=== PATIENT | female | born 1945 | race Caucasian/White ===

== ENCOUNTER 2023-06-28 08:04 | Emergency (ER) | payer MEDICARE, MEDICAID, SELFPAY ==
--- NOTE | 2023-06-28 08:10 | ED.SKABFB ---
HPI - Skin/Abscess/Foreign Bdy General Chief complaint: Skin/Abscess/Foreign Body Stated complaint: Rash Time Seen by Provider: 06/28/23 08:25 Source: patient and RN notes reviewed Mode of arrival: ambulatory Limitations: no limitations History of Present Illness HPI narrative: 77-year-old female presents concern for rash. She reports she has had a rash on her arms, legs, breasts for 2 weeks. She reports she has used hydrocortisone cream without relief. She denies any new detergents, lotions, soaps, personal care products. She denies any history of reaction to something in the past. She reports it seems like something is biting her. She does not have rash anywhere else other than her forearms, lower legs, breast. She denies swollen lips, swollen tongue, trouble breathing. MD complaint: rash Related Data Home Medications Medication Instructions Recorded Confirmed alprazolam 0.5 mg tablet 0.5 mg PO DAILY 06/28/23 06/28/23 amlodipine 5 mg tablet 5 mg PO DAILY 06/28/23 06/28/23 atorvastatin 40 mg tablet 40 mg PO DAILY 06/28/23 06/28/23 cholecalciferol (vitamin D3) 50 50 mcg PO DAILY 06/28/23 06/28/23 mcg (2,000 unit) tablet (Vitamin D3) triamterene 37.5 1 tablet PO DAILY 06/28/23 06/28/23 mg-hydrochlorothiazide 25 mg tablet Allergies Allergy/AdvReac Type Severity Reaction Status Date / Time acetaminophen Allergy Mild Itching Verified 06/28/23 08:15 hydrocodone Allergy Mild Itching Verified 06/28/23 08:15 Review of Systems Review of Systems: CONSTITUTIONAL: Denies malaise, chills, sweats, or fever. EYES: Denies redness, or discharge. ENT: Denies rhinorrhea, congestion, swollen lips, swollen tongue CARDIOVASCULAR: Denies chest pain, palpitations, or edema. RESPIRATORY: Denies cough or dyspnea. GASTROINTESTINAL: Denies abdominal pain, nausea, vomiting SKIN: Reports rash on her forearms, lower legs, breasts MUSCULOSKELETAL: Denies joint pain or myalgia. NEUROLOGIC: Denies headache. All systems reviewed & are unremarkable except as noted in HPI and below PMFSH Comments At time of signature, agree with nursing past medical, surgical, social and family history. There is no relevant family history pertinent to the presenting complaint Exam Narrative: GENERAL: Well-appearing, well-nourished, and in no acute distress. HEAD: Normocephalic, atraumatic. EYES: PERRLA, conjunctivae clear, and EOMI. ENT: Mucous membranes moist. Oropharynx without edema, erythema or lesions. NECK: Supple. No lymphadenopathy CHEST: Clear to auscultation. No respiratory distress. HEART: Regular rate and rhythm. SKIN: Warm, dry. Discrete erythematous papules with scabs noted to the lower legs, her arms, breasts, no tracking noted. NEURO: Alert and oriented x3. PSYCH: Normal mood and affect Course Course Emergency Course: While this does not appear Holy consistent with scabies, I will treat the patient just in case, likely I think it is a contact dermatitis of some sort Patient is aware of diagnosis, understands and agrees to treatment plan. Anticipatory guidance given. Patient agrees to follow-up as directed and is aware of reasons to seek care at the emergency department. Portions of this record may have been created with voice recognition software Level of Care: Express Care Visit Vital Signs Vital signs: Reviewed. MDM - Skin/Abscess/Foreign Bdy MDM Narrative Medical decision making narrative: Does not appear at this time to be erythema multiforme, bullous, SJS, TEN; no evidence at this time to suggest RMSF, endocarditis or Lyme disease; patient looks well, nontoxic and is tolerating oral intake; no neurologic signs or symptoms; no headache, photophobia or neck pain; afebrile; appropriate for initial outpatient treatment; discussed the importance of follow-up, patient agrees; question, viral exanthema, contact dermatitis, allergic dermatitis, eczema, urticaria, scabies. No soft palate or uvula edema, no tongue, lip javad
[2023-06-28 08:14] VITALS: BP 144/69; PULSE 84; RESP 18; TEMP 36.8; O2SAT 100
== END 2023-06-28 08:43 | disposition home or self-care (01) ==
PROVIDERS: Emergency Provider Nurse Practitioner; PCP Nurse Practitioner Family
DX: R21 Rash and other nonspecific skin eruption (principal); Z79.899 Other long term (current) drug therapy
CPT/HCPCS: 99213; G0463

== ENCOUNTER 2025-08-27 11:43 | Outpatient (CLI) | payer MEDICARE, MEDICAID, SELFPAY ==
--- OUTSIDE RECORDS SUMMARY | 2013-06-22 03:15 | XMS_ITS | Continuity of Care Document ---
Author Organization [facility] Address [address] [place] [address] Phone Care Team Providers Care Manager Transplant Name Role Phone Ventura Ashton MD, MD Unavailable Unavailab le Allergies, Adverse Reactions, Alerts Substance Reaction Status Criticality No Known allergies Medications Medication Instructions Dosage Effective Dates (start - stop) Status Comments Vitamin D3 1,000 unit tablet - Active Prolia 60 mg/mL Sub-Q Syringe - Active Procedures Procedure Date Office/outpatient Visit, [facility] No Charge Refraction Advance Directives Directive [...] Providers Copied on Encounter Office/outpa tient Visit, [facility], [address], [place], [place], [id number], [place] tel:[phone] SEC Michael BARNHART Professional PSYCHOPHYSIC VISUAL DISTSENILE NUCLEAR CATARACT Sep-0 3 Poli Whitehead. [address], [place], [address], [place]. tel:[phone] Referring Provider: Judi Caballero, [facility] [address] [facility] [address], [place], [address]. tel:[phone] [facility], [address], [place], [place], [id number], [place] tel:[phone] SEC Michael [place] Professional No Information 3 Rodolforodritavo Starr. [address], [place], [place], [address], [place]. tel:[phone] Family History Family Member Type Diagnosis Age At Onset Father Problem (finding) diabetes melli tus in first degree relative Mother Problem (finding) Cornea Disorders Payers Payer name Insurance type Covered green party ID Authoriza tion(s) Medicare [facility] [id number] Medicaid [facility] [id number] Social History Type Description Quantity Date Captured [...]
--- OUTSIDE RECORDS SUMMARY | 2025-08-27 12:16 | XMS_ITS | Encounter Summary ---
Author Organization [facility] Address [address] [place] [address] Care Team Providers Care Binder Cutter Hand Name Role Phone Willy Hollis MD Primary Care Provider [phone] Willy Hollis MD Primary Care Provider [phone] Dhara Velasco MD Primary Care Provide r Willy Hollis MD Primary Care Provider [phone] Reg Hook MD Primary Care Provider [phone] Laurita Grewal NP Primary Care Provider [phone] Tono Sigala MD Primary Care Provider Mendez Clark MD Primary Care Provi margot Encounter Details Date Type Department Care Team (Late st Contact Info) Description 12/23/2016 Orders Only [facility] Internal Medicine Provider, MD Bob [address] [place] [address] Social History Tobacco Use Types Packs/Day Years Used Date Smoking Tobacco: Never Alcohol Use Standard Drinks/Week Comments No 0 (1 standard drink = 0.6 oz pur e alcohol) Comments Unknown Sex and Gender Information Value Date Recorded Sex Assigned at Not on file Legal Sex Female 11:55 PM GPS FIELD DATA COLLECTOR Gender Identity Not on file Sexual Orientation Not on file documented as of this encounter Functional Status documented as of this encounter Plan of Treatment Not on file documented as of this encounter Procedures Procedure Name Priority Date/Time Associated Diagnosis Comments CARDIOLOGY REPORT 12/23/2016 documented in this encounter Results * CARDIOLOGY REPORT (12/23/2016) Anatomical Region Laterality Modality Other Narrative 12/23/2016 Ordered by an unspecified provider. us Historical Provider [facility] DANIELLA RAYGOZA Final Result documented in this encounter Visit Diagnoses Not on filedocumented in this encounter Additional Health Concerns Infection Onset Date Last Indicated Resolved Time COVID: Suspected 09/27/2021 09/27/2021 09/27/2021 10:14 AM GPS FIELD DATA COLLECTOR COVID19 09/27/2021 09/27/2021 10/11/2021 3:05 AM GPS FIELD DATA COLLECTOR COVID: Recovered Comment:Added based on recent COVID infection. 10/11/2021 11/26/2021 02/08/2022 3:05 AM C DT COVID: Suspected 04/17/2022 04/17/2022 04/17/2022 9:12 AM CDT COVID: Suspected 04/17/2022 04/17/2022 04/17/2022 6:19 PM CDT COVID: Suspected 05/26/2024 05/26/2024 05/26/2024 5:41 PM CDT COVID19 05/26/2024 05/26/2024 06/05/2024 3:07 AM CDT COVID: Recovered Comment:Added based on recent COVID infection. 06/05/2024 06/15/2024 09/03/2024 3:[address] documented as of this encounter Care Teams Binder Cutter Hand Relationship Specialty Start Date End Date Willy Hollis MD PCP - General 01/14/17 01/26/22 Willy Hollis MD PCP - General 12/11/16 01/13/17 Dhara Velasco MD [address] [place] [address] [address] [place] [address] PCP - General 01/27/22 02/07/22 Willy Hollis MD [address] [facility] [address] [address] [address] [place] [address] PCP - General 02/08/22 03/07/22 Reg Hook MD [address] [place] [address] PCP - General Family Medicine 03/08/22 08/07/23 Laurita Grewal, DOCTOR OF [facility] [address] [place] [address] PCP - General Family Medicine 08/08/23 10/31/23 Tono Sigala MD [address] [place] [address] PCP - General Family Medicine 11/01/23 09/24/24 Mendez Clark MD [address] [facility] [address] [place] [address] PCP - General Family Practice 09/25/24 documented as of this encounter
--- OUTSIDE RECORDS SUMMARY | 2025-08-27 12:16 | XMS_ITS | Encounter Summary ---
Author Organization [facility] Address [address] [place] [address] Care Team Providers Care Fence Repairman Name Role Phone Laurita Grewal NP Primary Care Provider [phone] Tono Sigala MD Primary Care Provider Mendez Clark MD Primary Care Provi margot Encounter Details Date Type Department Care Team (Late st Contact Info) Description 10/20/2023 Telephone [facility] [address] [place] [address] Sherry Simms, LAWANDA Social History Tobacco Use Types Packs/Day Years Used Date Smoking Tobacco: Never Smokeless Tobacco: Never Alcohol Use Standard Drinks/Week Comments No 0 (1 standard drink = 0.6 oz pur e alcohol) AUDIT-C Answer Date Recorded Q1: How often do you have a drink containing alcohol? Never 08/09/2023 Q2: How many drinks containi ng alcohol do you have on a typical day when you are drinking? Patient does not drink Q3: How often do you have si x or more drinks on one occasion? Never 08/09/2023 PHQ-2 Answer Date Recorded PHQ-2 Total Score (If total score is 3 or more points, staff should administer the PHQ-9) 0 09/13/2023 Personal Safety Answer Date Recorded Getting School Help Needed Not on file 10/03 Comments No Sex and Gender Information Value Date Recorded Sex Assigned at Not on file Legal Sex Female 11:55 PM SWEETBREAD TRIMMER Gender Identity Not on file Sexual Orientation Not on file documented as of this encounter Plan of Treatment Not on file documented as of this encounter Visit Diagnoses Not on filedocumented in this encounter Additional Health Concerns Infection Onset Date Last Indicated Resolved Time COVID: Suspected 05/26/2024 05/26/2024 05/26/2024 5:41 PM CDT COVID19 05/26/2024 05/26/2024 06/05/2024 3:07 AM CDT COVID: Recovered Comment:Added based on recent COVID infection. 06/05/2024 06/15/2024 09/03/2024 3:[address] documented as of this encounter Care Teams Fence Repairman Relationship Specialty Start Date End Date Laurita Grewal NP PCP - General Family Medicine 08/08/23 10/31/23 Tono Sigala MD PCP - General Family Medicine 11/01/23 09/24/24 Mendez Clark MD [address] [address] PCP - General Family Practice 09/25/24 documented as of this encounter
--- OUTSIDE RECORDS SUMMARY | 2025-08-27 12:16 | XMS_ITS | Clinical Summary ---
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 Name Role Phone Kinsey Oliver MD Primary Care Provi margot Allergies Active Allergy Reactions Criticality Noted Date Comments Hydrocodone Itching,Nausea only Reaction: itch, nausea, , Reaction: itch, nausea, Medications calcium citrate-vitamin D3 (CITRACAL+D) 315-200 mg-unit per tablet Take 1 tablet by mouth 2 (two) times a day Active triamterene-hydro CHLOROthiazide 37.5-25 mg per tablet TAKE 1 TABLET BY MOUTH EVERY DAY 90 tablet 3 04/30/2024 Active cholecalciferol (Vitamin D3) 2000 unit tabletIndications :Age-related osteoporosis without current pathological fracture Take 1 tablet (2,000 Units total) by mouth daily 90 tablet 3 05/24/2024 Active atorvastatin (LIPITOR) 40 mg tablet TAKE 1 TABLET BY MOUTH EVERY DAY 90 tablet 3 03/15/2025 Active traMADoL (ULTRAM) 50 mg tablet Take 1 tablet (50 mg total) by mouth every 6 (six) hours as needed for pain 03/15/2025 Active citalopram (CeleXA) 20 mg tabletIndications :SARITHA (generalized anxiety disorder) TAKE 1 TABLET BY MOUTH EVERY DAY 100 tablet 1 05/05/2025 Active amLODIPine (NORVASC) 5 mg tabletIndications :Essential hypertension TAKE 1 TABLET (5 MG TOTAL) BY MOUTH DAILY. 90 tablet 3 05/15/2025 Active Active Problems Problem Noted Date Diagnosed Date Medicare annual wellness visit, subsequent 05/01 Closed head injury 03/28/2025 Cervical strain, acute, initial encounter 2024 Left shoulder strain, initial encounter 03/28/20 Sacral contusion, initial encounter 03/28/2025 Closed avulsion fracture of lateral malleolus of left fibula 03/28/2025 Accidental fall 03/28/2025 Hyperkalemia 11/01/2024 Bladder prolapse, female, acquired 09/25/2024 Rotator cuff arthropathy of right shoulder 09/25 Anemia in stage 3a chronic kidney disease 2023 Assessment & Plan (05/24/2024 10:43 AM CDT): - Chronic, mild, stable - has known CKD stag 3a - we will continue to monitor lab - relevant labs as shown below Lab Results Component Value Date WBC 7.0 05/11/2024 HGB 11.8 (L) 05/11/2024 HCT 35.2 (L) 05/11/2024 MCV 90.7 05/11/2024 LABPLAT 286 05/11/2024 Lab Results Component Value Date VITB12 479 05/11/2024 Lab Results Component Value Date FOLATE 7.2 05/11/2024 Lab Results Component Value Date IRON 79 05/11/2024 TIBC 266 05/11/2024 FERRITIN 293 (H) 05/11/2024 Assessment & Plan (02/03/2024 3:21 AM CDT): - Chronic, mild, stable - has known CKD stag 3a - repeat labs prior to next visit, additional labs iron studies, b12, Folate levels also ordered Lab Results Component Value Date WBC 7.1 01/24/2024 HGB 11.5 (L) 01/24/2024 HCT 34.2 (L) 01/24/2024 MCV 90.2 01/24/2024 LABPLAT 314 01/24/2024 SARITHA (generalized anxiety disorder) 11/01/2023 Assessment & Plan (05/24/2024 11:00 AM CDT): - Chronic condition, better controlled - persistent symptoms of anxiety that is not controlled - used to use Alprazolam 0.5 mg nightly for sleep for many years - no longer after being taken off - has 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 and 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 sleep disorder - , no children currently, and works - currently on Citalopram 10 mg daily - continue current medication Assessment & Plan (02/03/2024 3:20 AM CDT): - Chronic condition, persistent - persistent symptoms of anxiety that is not controlled - has been using Alprazolam 0.5 mg nightly for sleep for many years - has 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 and has sleep disorder - , no children currently, and works - currently on Citalopram 10 mg daily that was started on last visit - continue current medication Assessment & Plan (11/01/2023 9:36 AM PRECISION LENS TECHNICIAN): - new diagnosis - persistent symptoms of anxiety that is not controlled - has been using Alprazolam 0.5 mg nightly for sleep for many years - has 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 - , no children currently, and works - start Citalopram 10 mg daily, script sent in Abnormal mammogram of left breast 11/01/2023 Assessment & Plan (02/03/2024 3:23 AM CDT): - reviewed recent Abnormal mammogram and US of left breast - had biopsy with result as shown below - to note, she has had biopsy of right breast in 2016 - at [facility] - with benign findings - due for repeat Left breast diagnostic mammogram and ultrasound in 6 months from 10/2023, order already placed in the past, reminder provided 11/09 - IMPRESSION: Ultrasound-guided biopsy of a left breast 3 mm mass as described above. Pathology is pending. An addendum to this report will be issued when the pathology results are available. Pathology returns as small foci of epithelial hyperplasia favoring usual ductal hyperplasia (UDH) and focal cystic dilatation, no evidence of malignancy. Pathology is concordant with the imaging findings. Left breast diagnostic mammogram and ultrasound in [address] Sigala was notified of the biopsy results by Sherry Simms RN on 11/15/2023. Pathology Pending 11/09 Diagnosis: Breast, left, mass, 9 o'clock 1-2 cmfn, ultrasound-guided core biopsy: - Small foci of epithelial hyperplasia favoring usual ductal hyperplasia (UDH) and focal cystic dilation. - No evidence of malignancy. - See microscopic description. EXAMINATION: DIAGNOSTIC MAMMOGRAM LEFT W KAIA, US BREAST LEFT LIMITED 10/14/2023 IMPRESSION: 1. The 3 mm mass at the 9 o'clock position of the left breast is suspicious for malignancy (low suspicion). Differential considerations include an intramammary lymph node. Ultrasound-guided biopsy of this mass is recommended. 2. No evidence of left axillary adenopathy on ultrasound. BI-RADS: 4A - Suspicious for malignancy (low suspicion). Assessment & Plan (11/01/2023 9:40 AM PRECISION LENS TECHNICIAN): - reviewed recent Abnormal mammogram and US of left breast - it was recommended to get biopsy which she is hesitant about, has fear of needles - discussed I can provider her a sedative medication for her feat to calm her down, still hesitant - order placed, I have asked her to discuss this with her close family as well before deciding not to pursue the biopsy - to note, she has had biopsy of right breast in 2016 - at [facility] - with benign findings EXAMINATION: DIAGNOSTIC MAMMOGRAM LEFT W KAIA, US BREAST LEFT LIMITED 10/14/2023 IMPRESSION: 1. The 3 mm mass at the 9 o'clock position of the left breast is suspicious for malignancy (low suspicion). Differential considerations include an intramammary lymph node. Ultrasound-guided biopsy of this mass is recommended. 2. No evidence of left axillary adenopathy on ultrasound. BI-RADS: 4A - Suspicious for malignancy (low suspicion). Stage 3a chronic kidney disease 08/09/2023 Assessment & Plan (05/24/2024 10:41 AM CDT): - chronic condition, stable - educated patient on 10/2023 which is when she first learned about this condition - monitor electrolytes - avoid NSAIDs, make sure hypertension is well cotnrolled - renally dose medications - will continue to monitor renal function Lab Results Component Value Date CREATININE 1.31 (H) 05/11/2024 BUNSER 12 05/11/2024 SODIUM 142 05/11/2024 POTASSIUM 4.1 05/11/2024 CO2 26 05/11/2024 Assessment & Plan (02/03/2024 3:19 AM CDT): - chronic condition, stable - educated patient on 10/2023 which is when she first learned about this condition - monitor electrolytes - avoid NSAIDs, make sure hypertension is well cotnrolled - renally dose medications - will continue to monitor renal function Lab Results Component Value Date CREATININE 1.32 (H) 01/24/2024 BUNSER 12 01/24/2024 SODIUM 137 01/24/2024 POTASSIUM 4.0 01/24/2024 CO2 28 01/24/2024 Assessment & Plan (11/01/2023 9:35 AM PRECISION LENS TECHNICIAN): - chronic condition - patient states this is the first time she is learning about it, discussed it to her - monitor electrolytes - avoid NSAIDs, make sure hypertension is well cotnrolled - renally dose medications - recheck labs, orders placed Lab Results Component Value Date CREATININE 1.24 (H) 08/09/2023 BUNSER 13 08/09/2023 SODIUM 138 08/09/2023 POTASSIUM 3.9 08/09/2023 CO2 24 08/09/2023 Assessment & Plan (08/12/2023 1:54 PM CDT): Lab Results Component Value Date GFRNAA 45 08/09/2023 Lab Results Component Value Date CREATININE 1.24 (H) 08/09/2023 Lab Results Component Value Date BUNSER 13 08/09/2023 Continue to follow a Renal diet that is low in sodium, potassium, and phosphorus. Avoid/limit foods such as fast food items, fried/breaded foods, canned goods, deli meats, gravies/sauces, bananas, tomatoes, oranges, milk, dark alex and chocolate. [place] juice, citrus juices, and tomato juice are also high in potassium. Do not use salt substitutes, as they may contain potassium. Additional resources available online from the [employer] at www.kidney.org/nutrition Labs are stable. Continue tight blood pressure control. Encouraged adequate fluid intake. Avoid nsaids. Will continue to monitor. Personal history of colonic polyps 07/27/2023 Assessment & Plan (02/03/2024 3:19 AM CDT): - last colonoscopy as shown below, up to date as shown below Colonoscopy 11/2023 Patient Profile: This is a 78 year old female. History of colon polyps. No family history of colon cancer Procedure: Colonoscopy Indications: High risk colon cancer surveillance: Personal history of colonic polyps, Last colonoscopy: October 2018 Referring MD: Tono Sigala M.D. Providers: Melissa Sierra M.D. Impression: - The entire examined colon is normal overall. - Diverticulosis in the sigmoid colon. - Internal hemorrhoids. - No specimens collected. Recommendation: - Repeat routine colonoscopy is not recommended for screening purposes. - Continue present medications. 10/2018 - Colonoscopy Impression: - One 3 mm polyp in the ascending colon, removed with a jumbo cold forceps. Resected and retrieved. - Diverticulosis in the sigmoid colon. - One 5 mm polyp in the rectum, removed with a jumbo cold forceps. Resected and retrieved. - Internal hemorrhoids. Recommendation: - Await pathology results. - Repeat colonoscopy in 5-10 years for surveillance. Assessment & Plan (11/01/2023 8:58 AM PRECISION LENS TECHNICIAN): - last colonoscopy as shown below - has repeat colonoscopy scheduled for next month 10/2018 - Colonoscopy Impression: - One 3 mm polyp in the ascending colon, removed with a jumbo cold forceps. Resected and retrieved. - Diverticulosis in the sigmoid colon. - One 5 mm polyp in the rectum, removed with a jumbo cold forceps. Resected and retrieved. - Internal hemorrhoids. Recommendation: - Await pathology results. - Repeat colonoscopy in 5-10 years for surveillance. Palpitations 12/28/2021 Assessment & Plan (05/24/2024 10:44 AM CDT): valauted by cardiology in past for palpitations, 24 hr holter monitor and Stress test, Saw Dr. Jimenez for complaints of Palpiations, sob, chest heaviness Echo 01/2022 Conclusions: Normal global left ventricular systolic function. Ejection fraction is visually estimated at 55 to 60 %. Thin and hypermobile atrial septum. Normal structure of the mitral valve. Trivial regurgitation of the mitral valve. Normal structure of the aortic valve. Normal structure of the tricuspid valve. Trivial regurgitation in the tricuspid valve. Assessment & Plan (03/10/2022 1:13 PM CDT): Normal echo. Reports excessive caffeine intake. Stressed need to replace at least part of her caffeinated drinks w/water or non-caffeine soda. Assessment & Plan (01/28/2022 8:44 AM CDT): Continue following with cardiology Follow up on holter monitor Echo looks good with EF of 55-60% Assessment & Plan (12/28/2021 3:58 PM CDT): TSH with reflex to T4 ordered 24 hour Holter monitor ordered Follow-up in 1 month Chronic fatigue 12/28/2021 Assessment & Plan (12/28/2021 4:00 PM CDT): Anemia contributory factor Evaluated by collator operator. Iron levels, b12, and folate normal In the process of getting EGD and colonoscopy TSH ordered given associated palpitations Age-related osteoporosis wit hout current pathological fracture 09/27/2017 Assessment & Plan (05/24/2024 11:00 AM CDT): - chronic, condition, not at goal control - most DEXA as shown below - currently on Vitamin D and calcium - was on Prolia for several years and now on Evenity - has had 2 thus far DEXA 10/2022 FINDINGS: AP LUMBAR SPINE L1-L4: T-score is -3.6 LEFT HIP: T-score is -1.7 Femoral neck: T-score is -2.9 Lab Results Component Value Date TSH 2.83 01/24/2024 Lab Results Component Value Date CALCIUM 9.3 05/11/2024 PHOS 3.6 05/11/2024 Assessment & Plan (11/01/2023 9:34 AM PRECISION LENS TECHNICIAN): - chronic, condition, not at goal control - most DEXA as shown below - currently on Vitamin D and calcium - was on Prolia for several years and now on Evenity - recently started and has just had one injection and has another one today DEXA 10/2022 FINDINGS: AP LUMBAR SPINE L1-L4: T-score is -3.6 LEFT HIP: T-score is -1.7 Femoral neck: T-score is -2.9 Lab Results Component Value Date TSH 2.89 08/09/2023 Lab Results Component Value Date CALCIUM 10.1 08/09/2023 Assessment & Plan (08/12/2023 1:53 PM CDT): Last Dexa scan reviewed and was worse than previous dexa despite prolia injections. Discussed starting evenity and patient was agreeable. This was ordered for patient and we will start the process for obtaining it for her. Assessment & Plan (03/10/2022 1:17 PM CDT): Will continue prolia injections. Aware that we do not keep prolia in office. We will send script to her pharmacy & she will need to bring with her in July (6 mos from last injection). 07/14/20 dexa: showing osteoporosis in both left femoral neck (-3) and Lumbar spine (-3.3). Mixed hyperlipidemia 03/28/2017 Assessment & Plan (05/24/2024 10:44 AM CDT): - chronic condition - status: is adequately controlled. - current management/medications: Atorvastatin 40 mg daily - other comorbid conditions: hypertension - patient is compliant with medications. - most recent LDL as shown below - maintain a healthy weight, diet - will monitor closely Lab Results Component Value Date LDLCALC 83 01/24/2024 Lab Results Component Value Date ALT 17 08/09/2023 AST 22 08/09/2023 ALKPHOS 125 08/09/2023 BILITOT 0.6 08/09/2023 Assessment & Plan (02/02/2024 8:15 AM CDT): - chronic condition - status: is adequately controlled. - current management/medications: Atorvastatin 40 mg daily - other comorbid conditions: hypertension - patient is compliant with medications. - most recent LDL as shown below - maintain a healthy weight, diet - will monitor closely Lab Results Component Value Date LDLCALC 83 01/24/2024 Lab Results Component Value Date ALT 17 08/09/2023 AST 22 08/09/2023 ALKPHOS 125 08/09/2023 BILITOT 0.6 08/09/2023 Assessment & Plan (11/01/2023 8:51 AM PRECISION LENS TECHNICIAN): - chronic condition - status: is adequately controlled. - current management/medications: Atorvastatin 40 mg daily - other comorbid conditions: hypertension - patient is compliant with medications. - most recent LDL as shown below - maintain a healthy weight, diet - will monitor closely Lab Results Component Value Date LDLCALC 94 08/09/2023 Lab Results Component Value Date ALT 17 08/09/2023 AST 22 08/09/2023 ALKPHOS 125 08/09/2023 BILITOT 0.6 08/09/2023 Assessment & Plan (08/12/2023 1:54 PM CDT): Lipid abnormalities are stable, reviewed previous lipid levels in [facility]. Pharmacotherapy as ordered. Order for lipid panel was given today to be obtained. Pt voiced understanding of lab drawn and continuation of current medication regimen. Assessment & Plan (03/09/2022 2:42 PM CDT): Atorvastatin 40mg daily. Denies myalgias. We will check labs and make adjustments to medications as needed. Patient should focus on limiting bad fats in the diet and using exercise as a way to improve the lipid status. Secondary prevention. Reviewed medications. Lipid panel ordered; will call w/results when rec'd. Denies any statin Ses. Reviewed diet/exercise recommendations. Reviewed red flags. The 10-year ASCVD risk score (Meridian NORMA Jr., et al., 2013) is: 22.4% Values used to calculate the score: Age: 76 years Sex: Female Is Non- : No Diabetic: No Tobacco smoker: No Systolic Blood Pressure: 134 mmHg Is BP treated: Yes HDL Cholesterol: 46 mg/dL Total Cholesterol: 165 mg/dL Essential hypertension 03/28/2017 Assessment & Plan (05/24/2024 10:41 AM CDT): Blood Pressure Management BP Readings from Last 3 Encounters: 05/24/24 108/74 05/22/24 139/65 04/24/24 139/64 Chronic condition Status - is adequately controlled. Current medications are: Amlodipine 5 mg daily, Trimterene-HCTZ 37.5-25 mg daily Patient is compliant with medications. Patient denies any side effects or adverse side effects from the medication/s. Follow a low salt diet Monitor blood pressure regularly at home The 10-year ASCVD risk score (Madonna LOUIE, et al., 2019) is: 18.7% Values used to calculate the score: Age: 78 years Sex: Female Is Non- : No Diabetic: No Tobacco smoker: No Systolic Blood Pressure: 108 mmHg Is BP treated: Yes HDL Cholesterol: 47 mg/dL Total Cholesterol: 154 mg/dL Lab Results Component Value Date LDLCALC 83 01/24/2024 Lab Results Component Value Date GLUCOSE 100 05/11/2024 CALCIUM 9.3 05/11/2024 SODIUM 142 05/11/2024 POTASSIUM 4.1 05/11/2024 CO2 26 05/11/2024 CHLORIDE 104 05/11/2024 BUNSER 12 05/11/2024 CREATININE 1.31 (H) 05/11/2024 Assessment & Plan (02/02/2024 8:15 AM CDT): Blood Pressure Management BP Readings from Last 3 Encounters: 02/02/24 116/70 01/31/24 123/55 01/03/24 125/64 Chronic condition Status - is adequately controlled. Current medications are: Amlodipine 5 mg daily, Trimterene-HCTZ 37.5-25 mg daily Patient is compliant with medications. Patient denies any side effects or adverse side effects from the medication/s. Follow a low salt diet Monitor blood pressure regularly at home The 10-year ASCVD risk score (Madonna LOUIE, et al., 2019) is: 21.2% Values used to calculate the score: Age: 78 years Sex: Female Is Non- : No Diabetic: No Tobacco smoker: No Systolic Blood Pressure: 116 mmHg Is BP treated: Yes HDL Cholesterol: 47 mg/dL Total Cholesterol: 154 mg/dL Lab Results Component Value Date LDLCALC 83 01/24/2024 Lab Results Component Value Date GLUCOSE 102 01/24/2024 CALCIUM 9.7 01/24/2024 SODIUM 137 01/24/2024 POTASSIUM 4.0 01/24/2024 CO2 28 01/24/2024 CHLORIDE 99 01/24/2024 BUNSER 12 01/24/2024 CREATININE 1.32 (H) 01/24/2024 Assessment & Plan (11/01/2023 8:50 AM PRECISION LENS TECHNICIAN): Blood Pressure Management BP Readings from Last 3 Encounters: 11/01/23 130/70 10/04/23 127/73 09/13/23 134/64 Chronic condition Status - is adequately controlled. Current medications are: Amlodipine 5 mg daily, Trimterene-HCTZ 37.5-25 mg daily Patient is compliant with medications. Patient denies any side effects or adverse side effects from the medication/s. Follow a low salt diet Monitor blood pressure regularly at home The 10-year ASCVD risk score (Madonna LOUIE, et al., 2019) is: 26.2% Values used to calculate the score: Age: 78 years Sex: Female Is Non- : No Diabetic: No Tobacco smoker: No Systolic Blood Pressure: 130 mmHg Is BP treated: Yes HDL Cholesterol: 53 mg/dL Total Cholesterol: 176 mg/dL Lab Results Component Value Date LDLCALC 94 08/09/2023 Lab Results Component Value Date GLUCOSE 96 08/09/2023 CALCIUM 10.1 08/09/2023 SODIUM 138 08/09/2023 POTASSIUM 3.9 08/09/2023 CO2 24 08/09/2023 CHLORIDE 102 08/09/2023 BUNSER 13 08/09/2023 CREATININE 1.24 (H) 08/09/2023 Assessment & Plan (09/13/2023 7:11 AM PRECISION LENS TECHNICIAN): Recommend DASH diet, heart healthy lifestyle, exercise. Discussed the risks of hypertension. Assessment & Plan (08/12/2023 1:53 PM CDT): Stable/ Improved. Blood pressure is adequately controlled on current medication. We will not make any medication changes today. Will have her follow-up in 6 months for continued monitoring and management Assessment & Plan (03/09/2022 2:42 PM CDT): Amlodipine 5mg daily, triamterene/HCTZ 37.5/25mg daily The blood pressure is under good control. Ideally it should be under 130/80. Continue medications without adjustment. Continue efforts to eat well (4-5 fruits and veggies) daily and exercise for about 30 min nearly every day. Watch salt intake, keeping to less than 2000mg per day. Limit alcohol. Include strategies to cope with stress. Labs ordered today; will contact w/results once received. Primary insomnia 03/28/2017 Assessment & Plan (05/24/2024 11:01 AM CDT): - chronic condition, stable - son was hit by drunk lokie driver 1988, and was disabled and used to get up and turn him for 19 years - since her son she is still used to it so struggles to sleep - no longer on Alprazolam 0.5 mg nightly PRN - in past has been on Trazodone, Nortriptyline - currently on Citalopram 10 mg daily, and avoiding Caffeine containing Soda at night which is working for her - continue current management Assessment & Plan (02/03/2024 3:19 AM CDT): - chronic condition, stable - son was hit by drunk lokie driver 1988, and was disabled and used to get up and turn him for 19 years - since her son she is still used to it so struggles to sleep - currently on Alprazolam 0.5 mg nightly PRN - in past has been on Trazodone, Nortriptyline -discussed with her about role of anxiety which is not well controlled, see plan for anxiety - I want her to be off alprazolam, sent in trial of Belsomra 10 mg to take nightly 30 min before sleeps - continue current management with changes made Assessment & Plan (11/01/2023 9:35 AM PRECISION LENS TECHNICIAN): - chronic condition, stable - son was hit by drunk lokie driver 1988, and was disabled and used to get up and turn him for 19 years - since her son she is still used to it so struggles to sleep - currently on Alprazolam 0.5 mg nightly PRN - in past has been on Trazodone, Nortriptyline -discussed with her about role of anxiety which is not well controlled, see plan for anxiety - continue current management Assessment & Plan (08/12/2023 1:59 PM CDT): Has used xanax .5mg at bedtime for years. We discussed risks/benefits of medications and risk of dependence. She use to have to take care of her son at night, who was disabled. I talked to her about trying to wean off of it. Patient was agreeable to at least try it. Will decrease to .25mg tablet and take every other night for 2 weeks. Will start nortriptyline at bedtime nightly. F/u 1 month for recheck on medication change. Assessment & Plan (03/09/2022 2:42 PM CDT): Xanax refilled 02/10/22 #90, takes qhs prn. Gastroesophageal reflux disease 09/26/2013 Assessment & Plan (11/01/2023 8:52 AM PRECISION LENS TECHNICIAN): - chronic, stable - used to be on PPI but not any more - intermittent heartburn dn takes something OTC - Continue on current meds, encouraged healthy diet and exercise - Discussed increased risk of cdif and vit B12 deficiency with ad terminal makeup operator use of PPI. Recommend the following changes: - Avoid trigger foods (such as spicy foods, fried foods, onions, peppermints, chocolate, high acid foods and juices, caffeinated beverages, carbonated beverages, and tomato based products). - Avoid alcohol take. - Avoid routine use of NSAIDs. - Avoid lying down for 2-3 hours after eating. - Weight loss encouraged. - Eat smaller meals. - Avoid tobacco use. - Sleep on left side. - may sleep with bed propped. - Avoid wearing tight clothing that puts pressure on the stomach. Resolved Problems Problem Noted Date Diagnosed Date Resolved Date Encounter for medical examin selina to establish care 03/09/2022 03/10/2022 Assessment & Plan (03/10/2022 1:14 PM CDT): -reviewed screening guidelines: no family history of breast or colon cancer. -Encouraged monthly SBEs. Mammogram screening to start at 40 y/o unless concerns before that time. -Colonoscopy referral sent. Given contact # for Dr Nino. -UTD on immunizations. -discussed diet/exercise: daily recommendations of 20-30 minutes physical activity daily, watch fat/sugar intake. -denies safety/violence. Wears seatbelt. Aware to not text/talk and drive. -does not smoke nor drink ETOH Encounter to establish care with new doctor 03/09/2022 03/10/2022 Screening for colon cancer 03/09/2022 1 11/13/2022 Assessment & Plan (03/10/2022 1:15 PM CDT): Referral to Dr Sierra. Relates that she recently rec'd letter from his office that she needed to be seen this year (3 yrs). BMI 24.0-24.9, adult 03/09/2022 023 Assessment & Plan (03/10/2022 1:15 PM CDT): Discussed healthy diet and importance of regular physical activity. BMI is acceptable for this patient. Shortness of breath 12/28/2021 03/10/20 22 Assessment & Plan (01/28/2022 8:46 AM CDT): In the process of being evaluated by cardiology Stress test was normal Echo unremarkable Awaiting results for holter monitor F/u in April or if things progress. Assessment & Plan (12/28/2021 4:05 PM CDT): Evaluate for cardiac etiology Stress test in 2016 showed EF of 75% with normal perfusion Cardiology referral given F/u in 1 month History of colon polyps 12/26/201810/17 Carpal tunnel syndrome on left 12/14/2017 06/22/2019 Overview (12/14/2017): Added automatically from request for surgery [id number] Trigger middle finger of left hand 12/14/2017 06/22/2019 Overview (12/14/2017): Added automatically from request for surgery [id number] Trigger thumb of left hand 12/14/2017 0 06/22/2019 Overview (12/14/2017): Added automatically from request for surgery [id number] Osteoporosis 09/26/2013 03/28/2017 Overview (01/21/2017): Osteoporosis Encounters Date Type Department Care Team Description 07/22/2025 Orders Only [facility] [address] [facility] [address] [address] Anuel Fang MD Uterine prolapse (Primary Dx) 07/22/2025 Telephone [facility] [address] [facility] [address], [place] [address] Nelia Beard, polysom tech Ornelas case 07/09/2025 7:59 AM CDT - 07/09/2025 11:59 PM CDT Hospital Encounter [address] [address] Age-related osteoporosis without current pathological fracture Discharge Disposition: Discharge to home or self care 07/09/2025 Results Follow-Up [facility] Primary Care at [address] [address] Kinsey Oliver MD Dexa Axial Skeleton Bone Density 1 or 2 Site from Last 3 Months Immunizations Immunization Administration Dates Next Due Influenza, Quadrivalent, Hig h Dose, Preservative Free, Intrr 08/09/2023,09/15/2022,07/27/2021,07/03 Influenza, Split 08/09/2012,07/14/2011 Influenza, Trivalent, High D ose, Split, Preservative Free, Intramuscular 09/25/2024,06/22/2019,08/04/2018,09/27,08/16/2016,08/12/2015,08/30/2014 ,08/30/2014,06/29/2013 Influenza, Trivalent, IM (MDV) 07/17/2009,2007 Influenza, Unspecified 09/25/2024,2022,06/22/2019(Defer red: Patient Refused) Pneumococcal Conjugate PCV 13 07/04/2014, 014 Pneumococcal Conjugate Pcv20 11/01/2024 Pneumococcal Polysaccharide PPV23 06/25/2011 Tdap 07/29/2008 Surgical History Surgery Date Site/Laterality Comments TUBAL LIGATION Bilateral tubal ligation OTHER SURGICAL HISTORY 10/17/1975 - 10/16/1976 Sterilization: Bilateral tubal ligation BREAST BIOPSY Right 2016 EYE SURGERY Bilateral CARPAL TUNNEL RELEASE COLONOSCOPY 07/21/2012 POLYPECTOMY BREAST BIOPSY 11/11/2023 Left COLONOSCOPY 11/29/2023 Medical History Medical History Date Comments Osteoporosis osteoporosis Hx Other Medical elevated LDL Hx Other Medical 01-ob at ams Gastroesophageal reflux disease GERD Hx Other Medical Sterilization Hx Other Medical cough Hyperlipidemia Hypertension Colon polyp Family History Medical History Relation Name Comments Diabetes Father Diabetes mellit us; Heart attack Father Myocardial infa rction; Cause of : Myocardial infarction Heart disease Father Heart disease; /Heart disease; Breast cancer Maternal cousin Atrial fibrillation Mother Atrial F ibrillation; Other Mother Alive and well; /cholecystectomy; Atrial fibrillation Mother's Brother 2 At ria Fibrillation; Other Other No family histo ry of Cancer, breast; Other Sister 2 Alive and well; Ovarian cancer Neg Hx Thyroid cancer Neg Hx Relation Name Status Comments Father (Age 56) Maternal cousin Mother Mother's Brother 1 Alive Mother's Brother 2 Other Sister 1 Alive Sister 2 Social History Tobacco Use Types Packs/Day Years Used Date Smoking Tobacco: Never Smokeless Tobacco: Never Tobacco Cessation:Counseling Given: Not Answered Alcohol Use Standard Drinks/Week Comments No 0 (1 standard drink = 0.6 oz pur e alcohol) AUDIT-C Answer Date Recorded Q1: How often do you have a drink containing alcohol? Never 05/24/2024 Q2: How many drinks containi ng alcohol do you have on a typical day when you are drinking? Patient does not drink Q3: How often do you have si x or more drinks on one occasion? Never 05/24/2024 PHQ-2 Answer Date Recorded PHQ-2 Total Score (If total score is 3 or more points, staff should administer the PHQ-9) 0 05/01/2025 PHQ-9 Answer Date Recorded PHQ-9 Total Score 0 05/01/2025 Personal Safety Answer Date Recorded Have you ever been in or are you currently in a harmful physical or emotional relationship or is someone making you feel afraid or unsafe? 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 Gender Identity Not on file Sexual Orientation Not on file Obstetrics History Para Term AB IAB SAB Ectopic Multiple Livin g Live Births 1 1 1 Date Outcome GA Total Labor Labor/2nd/3rd Weight Sex Type Anes PTL Sophia A1 A5 Name Clin Term Last Filed Vital Signs Vital Sign Reading Time Taken Comments Blood Pressure 106/60 05/01/2025 7:22 AM CDT Pulse 65 05/01/2025 7:22 AM CDT Temperature 36.4 C (97.6 F) 05/01/2025 7:22 AM CDT Respiratory Rate 18 05/01/2025 7:22 AM CDT Oxygen Saturation 98% 05/01/2025 7:22 AM CDT Inhaled Oxygen Concentration - - Weight 52.4 kg (115 lb 8 oz) 05/01/2025 7:22 AM CDT Height 149.9 cm (4' 11.02) 05/01/2025 7:22 AM C DT Body Mass Index 23.32 05/01/2025 7:22 AM CDT Plan of Treatment Health Maintenance Due Date Last Done Comments Zoster Vaccine (1 of 2) 1996 Covid-19 Vaccine (3 2024-2 6 season) 2025 02/09/2021, 01/17/2021 Breast Cancer Screening-Mammogram 12/27/2025 12/27/2024, 09/17/2023, 07/29/2022, Additional history exists Depression Screening 05/01/2026 05/01/2025, 05/01/2025, 09/25/2024, Additional history exists Fall Risk Assessment 05/01/2026 05/01/2025, 05/24/2024, 02/02/2024, Additional history exists Well Visit 65+ 05/01/2026 05/01/2025, 04/16, 03/15/2023, Additional history exists Osteoporosis Screening-Bone Density Scan 07/09/2027 07/09/2025, 10/25/2022, 07/14/2020, Additional history exists DTaP/Tdap/Td Vaccine (3 - Td or Tdap) 07/23/2035 07/23/2025, 07/29/2008 Hepatitis C Screening Completed 01/27/2017 Colon Cancer Screening-CT Colonography Discontinued 11/29/2023, 11/01/2018, 07/21/2012, Additional history exists Colon Cancer Screening-Colonoscopy Discontinued 11/29/2023, 11/01/2018, 07/21/2012, Additional history exists Colon Cancer Screening-DNA Stool Discontinued 11/29/2023, 11/01/2018, 07/21/2012, Additional history exists Colon Cancer Screening-FIT Discontinued 11/29, 11/01/2018, 07/21/2012, Additional history exists Colon Cancer Screening-FOBT Discontinued 11/17, 11/01/2018, 07/21/2012, Additional history exists Colon Cancer Screening-Sigmoidoscopy Discontinued 11/29/2023, 11/01/2018, 07/21/2012, Additional history exists Colorectal Cancer Screening Discontinued Hepatitis B Screening Completed 05/11/2024 Pneumococcal vaccine 65+ Completed 025, 07/04/2014, 07/04/2014, Additional history exists Influenza Vaccine Completed 07/23/2025, , 09/25/2024, Additional history exists Medical Devices Implanted Type Area Education Manager Device Identifier Shelf Expiration Date Model / Serial / Lot Bard Peripheral Vascular Ultraclip Bard 17ga 10cm 2 Trigger Permanent Ultrasound [id number] - [id number] - [id number] Implanted:Qty: 1 on 11/11/2023 by Blake Mcclure MD at [facility] Breast Left: Breast Bard Peripheral Vascular 07/14/2026 [id number] / [id number] / [id number] Description:US left breast b iopsy 3 mm mass, 9:00 area 1-2 cmfn; cores x5 Procedures Procedure Name Priority Date/Time Associated Diagnosis Comments DEXA AXIAL SKELETON BONE DENSITY 1 OR MORE SITES Schedule Routine, Read Routine (OP Routine) 07/09/2025 8:18 AM CDT Age-related osteoporosis without current pathological fracture DIAGNOSTIC MAMMOGRAM BILATERAL W KAIA Schedule Routine, Read Routine (OP Routine) 12/27/2024 11:10 AM CDT Abnormal mammogram of left breast Encounter for screening mammogram for malignant neoplasm of breast COLONOSCOPY 11/29/2023 7:56 AM PRECISION LENS TECHNICIAN HEPATITIS C ANTIBODY Routine 01/27/2017 from Last 3 Months or Most Recently Relevant to Health Maintenance Results * Dexa Axial Skeleton Bone Density 1 or 2 Site (07/09/2025 8:18 AM CDT) Anatomical Region Laterality Modality Body N/A Other 07/09/2025 3:31 PM CDT Narrative 07/09/2025 3:33 PM CDT EXAM DESCRIPTION: DEXA AXIAL SKELETON BONE DENSITY 1 OR MORE SITES REASON FOR STUDY: 79 y/o year old F with given history of: screening for osteoporosis, postmenopausal Education Manager/Model: Medaxion SL (S/N [id number]) Facility LSC value of 0.022 for the AP spine, 0.027 for the femur, and 0.023 for the forearm. CLINICAL INFORMATION: Current height: 59 inches Maximum height: 16 inches Weight: 115 pounds Risk factors: Postmenopausal, adult fracture COMPARISON: 10/25/2022 FINDINGS: AP LUMBAR SPINE L1-L4: Total BMD is 0.680 g/cm2 T-score is -3.3 This is increased in comparison to prior exam which is statistically significant. LEFT HIP: Total BMD is 0.734 g/cm2 T-score is -1.7 This is decreased in comparison to prior exam which is not statistically significant. Femoral neck BMD is 0.537 g/cm2 T-score is -2.8 FRAX: FRAX not reported due to T-scores of hip, femoral neck and/or spine being at or below -2.5 (Osteoporosis). IMPRESSION: 1. Osteoporosis. REFERENCE: Bone mineral density: T-Score: Normal (T-score above or = -1.0) Low bone mass (T-score between -1.0 and -2.5) replaces the previously used term osteopenia Osteoporosis (T-score = or below -2.5) Z-Score: Within the expected range for age (Z-score above -2.0) Below the expected range for age (Z-score is -2.0 or below) Please see below follow up recommendations. Medical evaluation for secondary causes of low bone mineral density may be appropriate. FRAX is a World Health Organization validated fracture risk assessment tool that calculates a person's 10 year probability of a major osteoporosis related fracture and hip fracture. According to the National Osteoporosis Foundation guidelines, postmenopausal women and men age 50 or older with low bone mass and a 10 year probability of a major osteoporosis related fracture = or greater than 20% or a 10 year probability of a hip fracture = or greater than 3% should be considered for pharmacological treatment for the prevention of osteoporosis. For further information, including treatment recommendations, please refer to the 2019 ISCD Official Positions (http://www.iscd.org) and the NOF's Clinician's Guide to Prevention and Treatment of Osteoporosis (http://www.nof.org/professionals/clinical-guidelines) THIS IS AN ELECTRONICALLY VERIFIED FINAL REPORT 07/09/2025 3:33 PM - Electronically signed by Mohan Fisher M.D. MF: [email or web address] Report ID: [id number] Reading Location: [place] [address] Procedure Note Mohan Fisher MD - 07/09/2025 EXAM DESCRIPTION: DEXA AXIAL SKELETON BONE DENSITY 1 OR MORE SITES REASON FOR STUDY: 79 y/o year old F with given history of: screeningfor osteoporosis, postmenopausal Education Manager/Model: bookletmobile (S/N [id number]) Facility LSC value of 0.022 for the AP spine, 0.027 for the femur, and0.023 for the forearm. CLINICAL INFORMATION: Current height: 59 inches Maximum height: 16 inches Weight: 115 pounds Risk factors: Postmenopausal, adult fracture COMPARISON: 10/25/2022 FINDINGS: AP LUMBAR SPINE L1-L4: Total BMD is 0.680 g/cm2 T-score is -3.3 This is increased in comparison to prior exam which is statistically significant. LEFT HIP: Total BMD is 0.734 g/cm2 T-score is -1.7 This is decreased in comparison to prior exam which is not statistically significant. Femoral neck BMD is 0.537 g/cm2 T-score is -2.8 FRAX: FRAX not reported due to T-scores of hip, femoral neck and/or spine beingat or below -2.5 (Osteoporosis). IMPRESSION: 1. Osteoporosis. REFERENCE: Bone mineral density: T-Score: Normal (T-score above or = -1.0) Low bone mass (T-score between -1.0 and -2.5) replaces thepreviously used term osteopenia Osteoporosis (T-score = or below -2.5) Z-Score: Within the expected range for age (Z-score above -2.0) Below the expected range for age (Z-score is -2.0 or below) Please see below follow up recommendations. Medical evaluation forsecondary causes of low bone mineral density may be appropriate. FRAX is a World Health Organization validated fracture risk assessmenttool that calculates a person's 10 year probability of a major osteoporosisrelated fracture and hip fracture. According to the National OsteoporosisFoundation guidelines, postmenopausal women and men age 50 or older with low bonemass and a 10 year probability of a major osteoporosis related fracture = or greater than 20% or a 10 year probability of a hip fracture = or greaterthan 3% should be considered for pharmacological treatment for the preventionof osteoporosis. For further information, including treatment recommendations, please referto the 2019 ISCD Official Positions (http://www.iscd.org) and the NOF's Clinician's Guide to Prevention and Treatment of Osteoporosis (http://www.nof.org/professionals/clinical-guidelines) THIS IS AN ELECTRONICALLY VERIFIED FINAL REPORT 07/09/2025 3:33 PM - Electronically signed by Mohan Fisher M.D. MF: [email or web address] Report ID: [id number] Reading Location: [id number] Kinsey Oliver MD IM DXA PROCEDURES Final Result * DIAGNOSTIC MAMMOGRAM BILATERAL W KAIA (12/27/2024 11:10 AM CDT) Anatomical Region Laterality Modality Breast Bilateral Mammography 12/27/2024 11:2 2 AM CDT Impressions 12/27/2024 11:22 AM CDT The focal asymmetry in the left breast is stable and will continue to be classified as probably benign. A follow-up bilateral diagnostic mammogram is recommended in 12 months. BI-RADS: 3 - Probably benign The patient has been or will be contacted. The patient will be entered into a reminder system with a target due date of 1 year for her next mammogram. Electronically signed by: Iza Her M.D. Narrative 12/27/2024 11:22 AM CDT EXAMINATION: DIAGNOSTIC MAMMOGRAM BILATERAL W KAIA ORDERING HEALTHCARE PROVIDER: KINSEY OLIVER HISTORY: Follow-up probably benign focal asymmetry in the left breast. COMPARISON: 05/17/2024, 11/11/2023, 10/14/2023, 09/17/2023, 07/29/2022, 07/28/2021 TECHNIQUE: CC and MLO routine views of the Bilateral breasts were obtained with digital technique using breast tomosynthesis with C view. Computer aided detection was utilized. FINDINGS: There are scattered areas of fibroglandular density. There are postbiopsy clips in both breasts. The previously seen focal asymmetry in the subareolar left breast is less prominent on the current examination. This does not correlate to the postbiopsy clip in the left breast. This will continue to be classified as probably benign. There are no other suspicious masses, calcifications, or architectural distortion. There is no significant change. 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 Room: [facility] ENDOSCOPY ROOM 1 Note Status: Finalized Patient Profile: This is a 78 year old female. History of colonpolyps. No family history of colon cancer Procedure: Colonoscopy Indications: High risk colon cancer surveillance: Personalhistory of colonic polyps, Last colonoscopy: October 2018 Referring MD: Tono Sigala M.D. Providers: Melissa Sierra M.D. Impression: - The entire examined colon is normal overall. - Diverticulosis in the sigmoid colon. - Internal hemorrhoids. - No specimens collected. Recommendation: - Repeat routine colonoscopy is not recommended for screening purposes. - Continue present medications. Medicines: Monitored Anesthesia Care Complications: No immediate complications. Estimated Blood Loss: Estimated blood loss: none. Procedure: Pre-Anesthesia Assessment: - Prior to the procedure, a History and Physicalwas performed, and patient medications and allergieswere reviewed. The patient's tolerance of previous anesthesia was also reviewed. The risks andbenefits of the procedure and the sedation options and risks were discussed with the patient. All questions were answered, and informed consent was obtained. Prior Anticoagulants: The patient has taken noanticoagulant or antiplatelet agents. ASA Grade Assessment: Per anesthesia note and evaluation. After reviewing the risks and benefits, the patient was deemed in satisfactory condition to undergo the procedure. The benefits, risks and alternatives of theprocedure and sedation were discussed and informed consentwas obtained. All questions were answered. Please referto the signed informed consent document in the medical record. The bowel preparation used was Miralax and bisacodyl tablets via split dose instruction. The scope was passed under direct vision. The Pediatric Colonoscope [id number] was introducedthrough the anus and advanced to the the cecum, identifiedby appendiceal orifice and ileocecal valve. Thequality of the bowel preparation was excellent. Bowel prepwas administered using a split dose. Findings: The perianal and digital rectal examinations were normal. The cecum appeared normal. The colon (entire examined portion) appeared normal. No polyps and no mass lesions noted Scattered medium-mouthed diverticula were found in the sigmoidcolon. Internal hemorrhoids were found during retroflexion. The hemorrhoids were small. Electronically signed by Melissa Sierra M.D. Melissa Sierra M.D. 11/29/2023 9:26:40 AM Number of Addenda: 0 Note Initiated On: 11/29/2023 7:56 AM Procedure Code(s): --- Professional --- G0105, Colorectal cancer screening; colonoscopy on individual at high risk Diagnosis Code(s): --- Professional --- Z86.010, Personal history of colonic polyps K64.8, Other hemorrhoids K57.30, Diverticulosis of large intestine without perforation orabscess without bleeding CPT copyright 2020 [employer]. All rights reserved. The codes documented in this report are preliminary and upon charger tester reviewmay be revised to meet current compliance requirements. Recognized by the [place] [employer] for promoting quality in endoscopy us Melissa Sierra MD ENDOSCOPY PROCEDURES Final Result * Hepatitis C antibody (01/27/2017) SCRIBED HCV ab negative [facility] Blood specimen (specimen) Narrative [facility] - 01/27/2017 Results are already scanned in media us Historical Provider LAB MICROBIOLOGY - GENERA L ORDERABLES Final Result [facility] from Last 3 Months or Most Recently Relevant to Health Maintenance Insurance MEDICARE [facility] Address: [address] [address] [employer] MEDICARE [employer] Advance Directives For more information, please contact: [phone] * Full Code (Latest Code Status on File) Date Activated Date Inactivated Comments 11/29/2023 7:57 AM 11/29/2023 1:59 PM * Full Code Date Activated Date Inactivated Comments 11/29/2023 7:56 AM 11/29/2023 7:57 AM * Full Code Date Activated Date Inactivated Comments 11/01/2018 8:14 AM 11/01/2018 2:18 PM * Full Code Date Activated Date Inactivated Comments 11/01/2018 8:14 AM 11/01/2018 8:14 AM Care Teams Plant Clerk Relationship Specialty Start Date End Date Kinsey Oliver MD [address] [facility] [address] [place] [address] PCP - General Family Practice 09/25/24
--- OUTSIDE RECORDS SUMMARY | 2025-08-27 12:16 | XMS_ITS | Encounter Summary ---
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
--- OUTSIDE RECORDS SUMMARY | 2025-08-27 12:16 | XMS_ITS | Clinical Summary ---
Author Organization [facility] Address [address] [place] [address] Phone Care Team Providers Care Edi Manager Name Role Phone Willy Hollis MD Primary Care Provider Unavailabl e Allergies No known active allergies Medications omeprazole (PRILOSEC) 40 mg Capsule, Delayed Release(E.C.) 5 Active ibuprofen (MOTRIN) 800 mg tablet 5 Active denosumab (PROLIA) 60 mg/mL Syringe Inject 60 mg by subcutaneous injection one time only. Active Cholecalciferol , Vitamin D3, 2,000 unit Capsule Take by mouth. Activ e aspirin (ECOTRIN EC) 81 mg Tablet, Delayed Release (E.C.) Take 81 mg by mouth daily. Active calcium carbonate (CALTRATE) 600 mg (1,500 mg) Tablet Take by mouth 3 times daily with meals. Active Active Problems Patient Care Coordination No te Formatting of this note migh t be different from the original. Primary Care: Willy Hollis MD Referring Provider: Willy Hollis MD [address] [place] [id number] Other: Problem Noted Date Diagnosed Date Abnormal mammogram of right breast 10/16/2015 Family History Medical History Relation Name Comments Diabetes Father Heart Disease Father Relation Name Status Comments Father Social History Tobacco Use Types Packs/Day Years Used Date Smoking Tobacco: Never Smokeless Tobacco: Never Alcohol Use Standard Drinks/Week Comments No 0 (1 standard drink = 0.6 oz pur e alcohol) Comments No Sex and Gender Information Value Date Recorded Sex Assigned at Not on file Legal Sex 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 Gender Identity Not on file Sexual Orientation Not on file Last Filed Vital Signs Vital Sign Reading Time Taken Comments Blood Pressure 146/78 05/03/2016 11:29 AM CDT Pulse 65 05/03/2016 11:29 AM CDT Temperature - - Respiratory Rate - - Oxygen Saturation - - Inhaled Oxygen Concentration - - Weight 57.2 kg (126 lb 3.2 oz) 05/03/2016 11:29 AM CDT Height 152.4 cm (5') 05/03/2016 11:29 AM CDT Body Mass Index 24.65 05/03/2016 11:29 AM CDT Plan of Treatment Health Maintenance Due Date Last Done Comments DTAP/TDAP/TD VACCINES (1 - Tdap) 1965 PNEUMOCOCCAL VACCINE 50+ YEARS (1 of 1 - PCV) 07/10/19 96 ZOSTER VACCINE (1 of 2) 1996 OSTEOPOROSIS SCREENING 2011 RSV VACCINE (60+ or ) (1 - 1-dose 75+ series) 2021 INFLUENZA VACCINE (#1) 2025 Insurance MEDICARE PART A AND B Care Teams Edi Manager Relationship Specialty Start Date End Date Willy Hollis MD PCP - General Internal Medicine 10/20/15
--- OUTSIDE RECORDS SUMMARY | 2025-08-27 12:16 | XMS_ITS | Encounter Summary ---
Author Organization [facility] Healthcare Address [address] [place] [address] Care Team Providers Care Ethologist Name Role Phone Willy Hollis MD Primary Care Provider [phone] Dhara Velasco MD Primary Care Provide r Willy Hollis MD Primary Care Provider [phone] Reg Hook MD Primary Care Provider [phone] Laurita Grewal NP Primary Care Provider [phone] Tono Sigala MD Primary Care Provider Mendez Clark MD Primary Care Provi margot Reason for Visit * Reason Onset Date Comments Scheduling Appointments 07/11/2020 Called f or DEXA appointment; No answer Encounter Details Date Type Department Care Team (Late st Contact Info) Description 07/11/2020 Telephone [facility] [address] [place] [address] Janice Carroll RT Scheduling Appointments (Called for DEXA appointment; No answer) Social History Tobacco Use Types Packs/Day Years Used Date Smoking Tobacco: Never Smokeless Tobacco: Never Alcohol Use Standard Drinks/Week Comments No 0 (1 standard drink = 0.6 oz pur e alcohol) PHQ-2 Answer Date Recorded PHQ-2 Score 0 06/08/2019 Comments No Sex and Gender Information Value Date Recorded Sex Assigned at Not on file 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 Gender Identity Not on file Sexual Orientation Not on file documented as of this encounter Plan of Treatment Not on file documented as of this encounter Visit Diagnoses Not on filedocumented in this encounter Additional Health Concerns Infection Onset Date Last Indicated Resolved Time COVID: Suspected 09/27/2021 09/27/2021 09/27/2021 10:14 AM CRYSTAL GAZER COVID19 09/27/2021 09/27/2021 10/11/2021 3:05 AM CRYSTAL GAZER COVID: Recovered Comment:Added based on recent COVID [...] documented as of this encounter Care Teams Ethologist Relationship Specialty Start Date End Date Willy Hollis MD PCP - General 01/14/17 01/26/22 Dhara Velasco MD [address] [place] [address] [address] [place] [address] PCP - General 01/27/22 02/07/22 Willy Hollis MD [address] [place] [address] [place] [address] PCP - General 02/08/22 03/07/22 Reg Hook MD [address] [place] [address] PCP - General Family Medicine 03/08/22 08/07/23 Laurita Grewal NP [address] [place] [address] PCP - General Family Medicine 08/08/23 10/31/23 Tono Sigala MD [address] [place] [address] PCP - General Family Medicine 11/01/23 09/24/24 Mendez Clark MD [address] [place] [address] PCP - General Family Practice 09/25/24 documented as of this encounter
--- OUTSIDE RECORDS SUMMARY | 2025-08-27 12:16 | XMS_ITS | Encounter Summary ---
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
--- NOTE | 2025-08-27 12:53 | ECG_ITS ---
Test Date: 2025-08-27 13:12:15 Measurements Intervals [place] Rate: 85 P: 0 HI: 0 QRS: 5 QRSD: 66 T: 235 QT: 249 QTc: 296 Interpretive Statements ATRIAL FIBRILLATION LOW QRS VOLTAGE IN PRECORDIAL LEADS [QRS DEFLECTION < 1.0 mV IN CHEST LEADS] NONSPECIFIC T-WAVE ABNORMALITY WARNING: DATA QUALITY MAY AFFECT INTERPRETATION No previous ECG available for comparison Electronically Signed On 08-27-2025 18:00:06 CORN LAB TECHNICIAN by Jeanine Payne M.D.
[2025-08-27 13:21] LABS: Hematocrit 37.7 % (37.0-47.0); Hemoglobin 12.6 g/dL (12.0-15.0); Immature Granulocyte Percent A 0.4 % (0-0.5); Lymphocytes Absolute Auto 3.43 K/mm3 (0.9-3.2); Mean Corpuscular HGB Conc 33.4 g/dl (32-36); Mean Corpuscular Hemoglobin 30.7 pg (26-34); Mean Corpuscular Volume 92.0 fl (80-100); Nucleated Red Blood Cells Absolute Auto 0.000 K/mm3 (0.0-0.012); Nucleated Red Blood Cells Perc 0.0 % (0.0-0.2); Platelet Count Result 327 k/mm3 (150-375); Red Blood Count 4.10 M/mm3 (4.2-5.4); White Blood Count 9.9 K/mm3 (4.5-10.0)
[2025-08-27 13:34] LABS: Alanine Aminotransferase 17 U/L (6-35); Albumin Level 4.8 g/dL (3.5-5.1); Alkaline Phosphatase 148 U/L (38-126); Anion Gap 9 mmol/L (4-12); Aspartate Amino Transferase 28 U/L (14-36); Bilirubin,Total 1.1 mg/dL (0.2-1.3); Blood Urea Nitrogen 18 mg/dL (7-17); Calcium 9.7 mg/dL (8.4-10.2); Carbon Dioxide 26 mmol/L (22-30); Chloride 102 mmol/L (98-107); Estimated Glomerular Filt Rate 36; Glucose 99 mg/dL (65-110); INR 1.0; Partial Thromboplastin Time 23.8 Seconds (22.3-36.8); Potassium 3.8 mmol/L (3.4-5.0); Prothrombin Time 13.4 Seconds (11.1-14.7); Sodium 137 mmol/L (137-145); Total Protein 8.8 g/dL (6.3-8.2)
== END 2025-08-27 11:44 | disposition home or self-care (01) ==
PROVIDERS: Visit Provider Urology
DX: N81.4 Uterovaginal prolapse, unspecified (principal); I10 Essential (primary) hypertension; I48.91 Unspecified atrial fibrillation
CPT/HCPCS: 36415; 80053; 85025; 85610; 85730; 86850; 86900; 86901; 93005

== ENCOUNTER 2025-08-29 08:18 | Outpatient (CLI) | payer MEDICARE, MEDICAID, SELFPAY ==
--- OUTSIDE RECORDS SUMMARY | 2013-06-22 03:15 | XMS_ITS | Continuity of Care Document ---
Author Organization [facility] Address [address] [place] [address] Phone Care Team Providers Care Academic Interventionist Name Role Phone Ventura Ashton MD, MD Unavailable Unavailab le Allergies, Adverse Reactions, Alerts Substance Reaction Status Criticality No Known allergies Medications Medication Instructions Dosage Effective Dates (start - stop) Status Comments Vitamin D3 1,000 unit tablet - Active Prolia 60 mg/mL Sub-Q Syringe - Active Procedures Procedure Date Office/outpatient Visit, [facility] No Charge Refraction Advance Directives Directive Yes / No Effective Date File Name Resuscitation Not Answered N/A N/A Life Support Not Answered N/A N/A Intubation Not Answered N/A N/A Antibiotics Not Answered N/A N/A IV Fluid Support Not Answered N/A N/A Tube Feed Not Answered N/A N/A Other Directive N/A N/A WARNING:The information contained in this section is historical and is provided for information only and does not constitute a legal document or any assurance that the information is still accurate. Please verify the information with the richardson of the legal document before using it for clinical purposes. Encounters Encounter Description Practice Location Reason(s) For Visit Diagnoses Date Provider Providers Copied on Encounter Office/outpa tient Visit, [facility], [address], [place], [place], [id number], [place] tel:[phone] SEC Michael BARNHART Professional PSYCHOPHYSIC VISUAL DISTSENILE NUCLEAR CATARACT Sep-0 3 Poli Whitehead. [address], [place], [address], [place]. tel:[phone] Referring Provider: Judi Caballero, [facility] [address] [facility], [place], [address]. tel:[phone] [facility], [address], [place], [place], [address], [place] tel:[phone] SEC Michael [place] Professional No Information 3 Rodolforodritavo Starr. [address], [place], [place], [address], [place]. tel:[phone] Family History Family Member Type Diagnosis Age At Onset Father Problem (finding) diabetes melli tus in first degree relative Mother Problem (finding) Cornea Disorders Payers Payer name Insurance type Covered republican ID Authoriza tion(s) Medicare [facility] [id number] Medicaid [facility] [id number] Social History Type Description Quantity Date Captured Comments Alcohol Use Details No Caffeine Use Details 2 cups per day Tobacco Use Status No Information Smoking Status Never smoker Non-Smoking Tobacco Use Details : No Details Available : No Details Available Sex Female Chief Complaint And Reason For Visit No Information Reason For Referral Reason For Referral No Information History Of Present Illness Encounter Date Complaint History Of Prese nt Illness No Information Functional Status Date Functional Assessmen t No Information Instructions Date Instruction Additional Infor mation SENILE NUCLEAR CATAR ACT - has cataract, not bothering her, discussed r/b/a of surgery. 6 month check. Related to SENILE NUCLEAR CATARACT Assessments Type Assessment Date No Information Patient Care Teams Name Effective Dates (start - stop) Status Members No Information
--- NOTE | 2025-08-29 08:25 | ECG_ITS ---
Test Date: 2025-08-29 08:41:13 Measurements Intervals [place] Rate: 81 P: 0 MD: 0 QRS: -4 QRSD: 67 T: -1 QT: 361 QTc: 420 Interpretive Statements ATRIAL FLUTTER/TACHYCARDIA LOW QRS VOLTAGE IN PRECORDIAL LEADS [QRS DEFLECTION < 1.0 mV IN CHEST LEADS] NONSPECIFIC ST & T-WAVE ABNORMALITY ABNORMAL RHYTHM ECG Compared to ECG 08/27/2025 13:12:15 Atrial fibrillation no longer present T-wave abnormality still present Electronically Signed On 08-29-2025 12:30:36 CHIEF JAILER by Juan C Doshi M.D.
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
--- OUTSIDE RECORDS SUMMARY | 2025-08-29 08:31 | XMS_ITS | Encounter Summary ---
Author Organization [facility] Address [address] [facility] [address] [place] [address] Care Team Providers Care Child & Adolescent Psychiatrist Name Role Phone Willy Hollis MD Primary Care Provider [phone] Willy Hollis MD Primary Care Provider [phone] Dhara Velasco MD Primary Care Provide r Willy Hollis MD Primary Care Provider [phone] Reg Hook MD Primary Care Provider [phone] Laurita Grewal NP Primary Care Provider [phone] Tono Sigala MD Primary Care Provider Mendez Clark MD Primary Care Provi margot Encounter Details Date Type Department Care Team (Late st Contact Info) Description 12/23/2016 Orders Only [facility] Provider, MD Bob [address] [place] [address] Social History Tobacco Use Types Packs/Day Years Used Date Smoking Tobacco: Never Alcohol Use Standard Drinks/Week Comments No 0 (1 standard drink = 0.6 oz pur e alcohol) Comments Unknown Sex and Gender Information Value Date Recorded Sex Assigned at Not on file 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 Gender Identity Not on file Sexual Orientation [...] COVID: Suspected 09/27/2021 09/27/2021 09/27/2021 10:14 AM SHOVEL ENGINEER COVID19 09/27/2021 09/27/2021 10/11/2021 3:05 AM SHOVEL ENGINEER COVID: Recovered Comment:Added based on recent COVID [...] documented as of this encounter Care Teams Child & Adolescent Psychiatrist Relationship Specialty Start Date End Date Willy Hollis MD PCP - General 01/14/17 01/26/22 Willy Hollis MD PCP - General 12/11/16 01/13/17 Dhara Velasco MD [address] [place] [address] [address] [place] [address] PCP - General 01/27/22 02/07/22 Willy Hollis MD [address] [facility] [address] [place] [address] PCP - General 02/08/22 03/07/22 Reg Hook MD [address] [place] [address] PCP - General Family Medicine 03/08/22 08/07/23 Laurita Grewal, SILK SPREADER [address] [place] [address] PCP - General Family Medicine 08/08/23 10/31/23 Tono Sigala MD [address] [place] [address] PCP - General Family Medicine 11/01/23 09/24/24 Mendez Clark MD [address] [facility] [address] [place] [address] PCP - General Family Practice 09/25/24 documented as of this encounter
--- OUTSIDE RECORDS SUMMARY | 2025-08-29 08:31 | XMS_ITS | Encounter Summary ---
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
--- OUTSIDE RECORDS SUMMARY | 2025-08-29 08:31 | XMS_ITS | Encounter Summary ---
Author Organization [facility] Healthcare Address [address] [place] [address] Care Team Providers Care General Cleaner Name Role Phone Willy Hollis MD Primary Care Provider [phone] Dhara Velasco MD Primary Care Provide r Willy Hollis MD Primary Care Provider [phone] Reg Hook MD Primary Care Provider [phone] Laurita Grewal NP Primary Care Provider [phone] Tono Sigala MD Primary Care Provider Mendez Clark MD Primary Care Provi margot Reason for Visit * Reason Onset Date Comments Scheduling Appointments 07/11/2020 Called f or DEXA appointment; No answer Encounter Details Date Type Department Care Team (Late st Contact Info) Description 07/11/2020 Telephone [facility] 1 [place] [address] Janice Carroll RT Scheduling Appointments (Called for [...] on file 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 Gender Identity Not on file Sexual Orientation Not on file documented as of this encounter Plan of Treatment Not on file documented as of this encounter Visit Diagnoses Not on filedocumented in this encounter Additional Health Concerns Infection Onset Date Last Indicated Resolved Time COVID: Suspected 09/27/2021 09/27/2021 09/27/2021 10:14 AM DIRECTOR OF EXTENSION WORK COVID19 09/27/2021 09/27/2021 10/11/2021 3:05 AM DIRECTOR OF EXTENSION WORK COVID: Recovered Comment:Added based on recent COVID [...] documented as of this encounter Care Teams General Cleaner Relationship Specialty Start Date End Date Willy Hollis MD PCP - General 01/14/17 01/26/22 Dhara Velasco MD [address] [place] [address] [address] [place] [address] PCP - General 01/27/22 02/07/22 Willy Hollis MD [address] [place] [address] [place] [address] PCP - General 02/08/22 03/07/22 Reg Hook MD [address] [place] [address] PCP - General Family Medicine 03/08/22 08/07/23 Laurita Grewal NP [address] [place] [address] PCP - General Family Medicine 08/08/23 10/31/23 Tono Sigala MD [address] [place] [address] PCP - General Family Medicine 11/01/23 09/24/24 Mendez Clark MD [address] [facility] [address] [place] [address] PCP - General Family Practice 09/25/24 documented as of this encounter
--- OUTSIDE RECORDS SUMMARY | 2025-08-29 08:31 | XMS_ITS | Encounter Summary ---
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
--- OUTSIDE RECORDS SUMMARY | 2025-08-29 08:31 | XMS_ITS | Clinical Summary ---
Author Organization [facility] Address [address] [place] [address] Phone Care Team Providers Care Business Process Coordinator Name Role Phone Willy Hollis MD Primary [...] Hollis MD Referring Provider: Willy Hollis MD [address] [place] [address] Other: Problem Noted Date Diagnosed Date Abnormal [...] on file Legal Sex Female 2:43 PM DUMPER Gender Identity Not on file Sexual Orientation [...] MEDICARE PART A AND B Care Teams Business Process Coordinator Relationship Specialty Start Date End Date Willy Hollis MD PCP - General Internal Medicine 10/20/15
--- OUTSIDE RECORDS SUMMARY | 2025-08-29 08:31 | XMS_ITS | Encounter Summary ---
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
== END 2025-08-29 08:19 | disposition home or self-care (01) ==
PROVIDERS: PCP Family Medicine; Visit Provider Urology
DX: I10 Essential (primary) hypertension (principal); Z01.818 Encounter for other preprocedural examination; R94.31 Abnormal electrocardiogram [ECG] [EKG]
CPT/HCPCS: 93005

== ENCOUNTER 2025-09-02 14:24 | Outpatient (CLI) | payer MEDICARE, MEDICAID, SELFPAY ==
--- NOTE | 2025-09-02 15:00 | ECHO_ITS ---
Patient Info Name: Ronda Hernandez Age: 80 years : 1945 Gender: Female Ht: 59 in Wt: 112 lbs BSA: 1.46 m2 HR: 75 bpm BP: 118 / 80 mmHg Technical Quality: Good Exam Date: 09/02/2025 3:07 PM Patient Status: O Admit Date: 09/02/2025 Exam Type: CA echo doppler color flow Complete two-dimensional, color flow and Doppler transthoracic echocardiogram is performed. Engineering Specialist Technician: Roberto Gorman III Attending Provider: Nilson Mancuso DO Summary 1. Complete two-dimensional, color flow and Doppler transthoracic echocardiogram is performed. 2. Left ventricular chamber dimension is normal. 3. Left ventricular systolic function is normal, estimated at 55-60. 4. The left ventricular diastolic function is normal. 5. E/e' 8 is minimally elevated. 6. Left atrial chamber dimension is severely enlarged. 7. Right atrial chamber dimension is moderately enlarged. 8. There is mild to moderate mitral valve regurgitation. 9. There is mild tricuspid valve regurgitation. 10. No pulmonary hypertension, estimated pulmonary arterial systolic pressure is 30 mmHg. 11. There is trace pulmonic regurgitation. Left Ventricle E/e' 8 is minimally elevated. Left ventricular chamber dimension is normal. Left ventricular systolic function is normal, estimated at 55-60. The left ventricular diastolic function is normal. Right Ventricle Right ventricular chamber dimension is normal. Right ventricular systolic function is normal and with normal TAPSE 1.8 cm. Left Atria Left atrial chamber dimension is severely enlarged. Right Atria Right atrial chamber dimension is moderately enlarged. Aortic Valve The aortic valve is trileaflet. There is no aortic valve stenosis. There is no aortic valve regurgitation. Pulmonic Valve There is trace pulmonic regurgitation. Mitral Valve There is no mitral valve stenosis. There is mild to moderate mitral valve regurgitation. Tricuspid Valve There is mild tricuspid valve regurgitation. No pulmonary hypertension, estimated pulmonary arterial systolic pressure is 30 mmHg. Pericardium/Pleural There is no pericardial effusion. Inferior Vena Cava Normal inferior vena cava with >50% collapse upon inspiration consistent with normal right atrial pressure, 5 mmHg. Aorta The aortic root size at the sinus of Valsalva is normal. Left Ventricular Outflow Tract Name Value Normal LVOT 2D LVOT Diameter 2.0 cm LVOT Doppler LVOT Peak Velocity 90 cm/s LVOT Peak Gradient 3 mmHg LVOT Mean Gradient 2 mmHg LVOT VTI 16 cm LVOT VTI/AV VTI Ratio 0.7 LVOT Stroke Volume 50 ml LVOT CO 4.9 l/min LVOT CI 3.4 l/min/m2 Pulmonic Valve Name Value Normal PV Doppler PV Peak Velocity 151 cm/s PV Peak Gradient 9 mmHg PV Mean Gradient 4 mmHg Mitral Valve Name Value Normal MV Doppler MV Peak Gradient 6 mmHg MV Mean Gradient 2 mmHg MV Area (Cont Eq VTI) 2.1 cm2 MV Regurgitation Doppler MR Peak Gradient 105 mmHg MV Diastolic Function MV E Peak Velocity 104 cm/s MV Decel Time (PW) 164 ms MV Annular TDI MV E/e' (Septal) 8.8 MV E/e' (Lateral) 8.3 MV E/e' (Average) 8.6 Tricuspid Valve Name Value Normal TV Regurgitation Doppler TR Peak Velocity 248 cm/s TR Peak Gradient 24 mmHg Estimated PAP/RSVP RA Pressure 5 mmHg <=5 PA Systolic Pressure 30 mmHg <36 RV Systolic Pressure 30 mmHg <36 TV Annular TDI TV Lateral Armida s' Velocity 11.2 cm/s >=9.5 Aortic Valve Name Value Normal AV Doppler AV Peak Velocity 119 cm/s AV Peak Gradient 6 mmHg AV Mean Gradient 3 mmHg AV VTI 23 cm AV Area (Cont Eq VTI) 2.2 cm2 >=3.0 AV Area (Cont Eq Ochoa) 2.3 cm2 AV DI (Ochoa) 0.75 AV Regurgitation 2D LVOT Area 3.1 cm2 Ventricles Name Value Normal LV Dimensions 2D/MM IVS Diastolic Thickness (2D) 0.8 cm 0.6-1.0 LVID Diastole (2D) 4.4 cm 3.8-5.2 LVIW Diastolic Thickness (2D) 0.9 cm 0.6-0.9 LVID Systole (2D) 3.1 cm 2.2-3.5 LVOT Diameter 2.0 cm LV Mass (2D Cubed) 113.74 g 67.00-162.00 LV Mass Index (2D Cubed) 78 g/m2 43-95 Relative Wall Thickness (2D) 0.40 <=0.42 LV Fractional Shortening/Ejection Fraction 2D/MM LV Fractional Shortening (2D) 29 % 27-45 LV EF (2D Teichholz) 56 % LV Diastolic Volume (4C MOD) 48 ml LV EF (4C MOD) 58 % LV Diastolic Volume (2C MOD) 47 ml LV EF (2C MOD) 63 % LV Diastolic Volume (BP MOD) 48 ml 46-106 LV Diastolic Volume Index (BP MOD) 33 ml/m2 29-61 LV Systolic Volume (BP MOD) 19 ml 14-42 LV Systolic Volume Index (BP MOD) 13 ml/m2 8-24 LV EF (BP MOD) 61 % 54-74 LV Diastolic Length (4C) 6.4 cm LV Systolic Length (4C) 5.0 cm LV Stroke Volume (4C MOD) 28 ml Atria Name Value Normal LA Dimensions LA Volume (4C A-L) 47 ml LA Volume (BP A-L) 61 ml RA Dimensions RA Systolic Major [place] Length (4C) 5.7 cm 2.2-2.8 RA Area (4C) 20.0 cm2 <=18.0 Report Signatures
== END 2025-09-02 14:25 | disposition home or self-care (01) ==
PROVIDERS: PCP Family Medicine; Visit Provider Internal Medicine Cardiovascular Disease
DX: I48.92 Unspecified atrial flutter (principal); I34.0 Nonrheumatic mitral (valve) insufficiency; I35.1 Nonrheumatic aortic (valve) insufficiency; I36.1 Nonrheumatic tricuspid (valve) insufficiency
CPT/HCPCS: 93306

== ENCOUNTER 2025-09-03 09:30 | Outpatient (CLI) | payer MEDICARE, MEDICAID, SELFPAY ==
--- NOTE | ~2025-09-03 | NM_ITS ---
EXAMINATION: NM emily stress w perfusion DATE: 09/03/2025 12:10 INDICATION: Encounter for preprocedural cardiovascular examination TECHNIQUE: Rest images were obtained following intravenous administration of 10.8 mCi Tc99m tetrofosmin (Myoview). The patient was infused intravenously with Lexiscan (Regadenoson). Then, 32.8 mCi Tc99m tetrofosmin (Myoview) was administered intravenously, and stress images were obtained. Data was tanja nstructed into short axis and horizontal and vertical long axis SPECT images. Gated SPECT images were also obtained. COMPARISON: None. FINDINGS: Computer scoring suggests a small region of mild ischemia at the mid inferolateral segment with visually no evident perfusion defect by plain reconstructed images. There is artifactually increased activity along the inferior and inferoseptal alvarado more prominent on the rest than the stress images resulting from activity in the adjacent liver which likely accounts for the comparatively decreased activity in the inferolateral segment on the stress images. There is no definite reversible or fixed perfusion abnormality to suggest ischemia or infarction There is normal left ventricular chamber size, wall motion and ejection fraction. Left ventricular ejection fraction measures >70%. IMPRESSION: 1. Possible small region of mild ischemia at the mid inferolateral segment but would favor that this reflection a relative decrease in activity resulting from artifactual increase in activity at the inferior and inferoseptal wall secondary to increased activity in the adjacent liver. 2. Left ventricular ejection fraction measuring >70%. Reviewed, dictated and finalized at location A. JAVA ENGINEER IMPRESSION: 1. Possible small region of mild ischemia at the mid inferolateral segment but would favor that this reflection a relative decrease in activity resulting from artifactual increase in activity at the inferior and inferoseptal wall seconda ry to increased activity in the adjacent liver. 2. Left ventricular ejection fraction measuring >70%.
--- NOTE | 2025-09-03 09:58 | EST_ITS ---
Patient Info Name: Ronda Hernandez Age: 80 years : 1945 Gender: Female Ht: 50 in Wt: 115 lbs BSA: 1.39 m2 BP: 130 / 75 mmHg Exam Date: 09/03/2025 9:58 AM Patient Status: O Admit Date: 09/03/2025 Exam Type: CA stress emily w NM A regadenoson stress test was performed. Staff Referring Physician: Nilson Mancuso DO Attending Provider: Nilson Mancuso DO Exercise Technologist: Gwen Calixto Exercise Physician: Nilson Mancuso DO Summary 1. 1. Negative lexiscan stress test for ischemic ST changes by ECG criteria. 2. 2. Stable hemodynamics throughout the test. 3. 3. Nuclear scan to follow and will be reported separately. Please correlate with it. 4. 4. Patient informed of the above results. Protocol: Lexiscan Stress ECG Details Stage: REST Duration (min): 0 min : 48 sec HR (bpm): 84 SBP (mmHg): 130 DBP (mmHg): 75 Stage: REST Duration (min): 6 min : 50 sec HR (bpm): 88 SBP (mmHg): 130 DBP (mmHg): 75 Stage: STAGE 1 Duration (min): 0 min : 59 sec HR (bpm): 112 SBP (mmHg): 123 DBP (mmHg): 79 Stage: RECOVERY Duration (min): 1 min : 0 sec HR (bpm): 109 SBP (mmHg): 123 DBP (mmHg): 79 Stage: RECOVERY Duration (min): 2 min : 0 sec HR (bpm): 97 SBP (mmHg): 123 DBP (mmHg): 79 Stage: RECOVERY Duration (min): 3 min : 0 sec HR (bpm): 113 SBP (mmHg): 112 DBP (mmHg): 81 Stage: RECOVERY Duration (min): 4 min : 0 sec HR (bpm): 100 SBP (mmHg): 112 DBP (mmHg): 81 Stage: RECOVERY Duration (min): 4 min : 9 sec HR (bpm): 92 SBP (mmHg): 112 DBP (mmHg): 81 Rest HR: 88 bpm Peak HR: 119 bpm Rest Sys BP: 130 mmHg Peak Sys BP: 123 mmHg Max Pred HR: 141 bpm % Max Pred HR: 84 % Target HR: 120 bpm Max RPP: 14,637 bpm*mmHg Termination Reason: Completed protocol Cardiac Symptoms: Shortness of breath Total Time: 1 min : 0 sec Rest Lieberman BP: 75 mmHg Peak Lieberman BP: 79 mmHg Total Dose: 0.4 mg Resting ECG Atrial fibrillation. Stress ECG No ST changes. Arrhythmias None. Report Signatures
== END 2025-09-03 09:31 | disposition home or self-care (01) ==
PROVIDERS: PCP Family Medicine; Visit Provider Internal Medicine Cardiovascular Disease
DX: Z01.810 Encounter for preprocedural cardiovascular examination (principal)
CPT/HCPCS: 78452; 93017; A9502; J2785

== ENCOUNTER 2025-09-10 08:40 | Inpatient (IN) | payer MEDICARE, MEDICAID, SELFPAY ==
[2025-08-27 12:09] VITALS: BP 118/81; PULSE 88; RESP 16; TEMP 37.1; O2SAT 100; BMI 23.8
--- NOTE | 2025-08-27 12:27 | PC.NURSE ---
[facility] has started construction of its new state of the art ER which will open Spring 2026. With this, we anticipate parking may be a challenge for some our surgical patients and families. Parking spaces are limited but are available for all Surgical, obstetrics, and ER patients sharing this lot. If you arrive and find you are having a hard time finding a parking space, please note that we understand the challenges, please drive around the hospital and park near Hospital Entrance 1. When you enter this entrance, you can ask a volunteer to direct or take you back to the surgical waiting area to check in. We appreciate everyone?s understanding of these expected challenges while we build for your future. Report to the Outpatient Waiting Room, entrance under the green pavilion located off [address], at time __6:00AM___ on date ___09/09/25 ___. Planned Procedure Time: __7:30AM____.? Time changes happen often and if your time is changed the preop area will call you the afternoon before. - You and your visitor will be asked to self-screen and do not enter if you have any COVID symptoms. Please call surgeon if you need to reschedule. - A mask is optional within the hospital at this time. Patients may have clear liquids (water, carbonated beverages, clear teas, apple juice) until 3 hours prior to surgery (4:30AM) with a maximum of 20 ounces. - No food from midnight until time of surgery and no smoking, or chewing tobacco (or any form of nicotine). No chewing gum, candy or mints. Take only the following medications with a SIP of water on the morning of surgery: ___AMLODIPINE, CITALOPRAM DO NOT STOP ANY OF YOUR OTHER PRESCRIPTION MEDICATIONS PRIOR TO SURGERY EXCEPT THE FOLLOWING Medications to discontinue per physician ___HOLD VITAMINS/SUPPLEMENTS 7 DAYS PRE-OP PER DR CHAVEZ Date to take last dose____09/01/25 Please no make-up, nail frisian, hairspray, perfume, deodorant, or body powder the day of surgery.? No jewelry (including any body piercings) or valuables the day of surgery, leave them at home.? Please take a shower or bath the night before, or the morning of, surgery with an antibacterial soap.? Wear comfortable, loose fitting clothing.? - Jewelry must be removed prior to entering the operating room.? Rings and piercings that are not removed may be cut off. - The hospital will not accept responsibility for valuables.? - Please leave all valuables, including medications, at home the day of surgery. If you are going home after surgery, a licensed non emergency services ambulance driver must drive you home.? - NO public transportation without another adult if you receive anesthesia. - We recommend that an adult stay with you for 24 hours following discharge. - We also recommend that you do not drive, make important decision, drink alcoholic beverages, or take any drugs that were not prescribed by your health care provider for at least 24 hours after your discharge time. Follow any additional instructions given to you from your surgeon. Telephone instructions given to ___PATIENT & NIECE and asked if any additional questions and then verbalized understanding. Patient advised to call surgeon office or pre surgery nurse liaison [phone] if any additional questions.
--- NOTE | 2025-09-02 08:21 | PM.IMHP ---
H&P: HPI History of Present Illness Date/Time: 09/02/25 08:21 Chief Complaint: POP Narrative: Ronda Hernandez is a 80-year-old female who presents for follow-up of pelvic organ prolapse. She reports a vaginal bulge and pelvic pressure that has been ongoing for several months. She also notes urinary urgency and urge incontinence. Stress incontinence occurs occasionally, and she experiences leakage when coughing or sneezing. She rates the discomfort from the bulge as 10/10 when it is prominent. She has not undergone a hysterectomy or prolapse surgery in the past. Her medical history includes a diagnosis of stress incontinence and uninhibited detrusor contractions, as documented by urodynamic testing. She is not currently sexually active and does not have a workers compensation administrator. Review of Systems Review of Systems: All systems reviewed & are unremarkable except as noted in HPI and below PMFSH Social History Social History Smoking status: Never smoker Living arrangements: alone Spiritual care concerns: No Meds Home Medications and Allergies Home Medications ?Medication ?Instructions ?Recorded ?Confirmed ?Type amlodipine 5 mg tablet 5 mg PO DAILY 06/28/23 08/30/25 History atorvastatin 40 mg tablet 40 mg PO DAILY 06/28/23 08/30/25 History cholecalciferol (vitamin D3) 50 50 mcg PO DAILY 06/28/23 08/30/25 History mcg (2,000 unit) tablet (Vitamin D3) triamterene 37.5 1 tablet PO DAILY 06/28/23 08/30/25 History mg-hydrochlorothiazide 25 mg tablet citalopram 20 mg tablet 20 mg PO QAM 08/27/25 08/30/25 History apixaban 2.5 mg tablet (Eliquis) 2.5 mg PO BID #60 tabs 08/30/25 08/30/25 Rx Allergies Allergy/AdvReac Type Severity Reaction Status Date / Time hydrocodone Allergy Mild Itching Verified 08/27/25 12:03 Exam Narrative: ? - Stage 4 uterine prolapse with cervix at +4. - Minimal urethral mobility. - Atrophic vaginal tissues. Assessment and Plan Assessment and plan (1) Uterine prolapse: Code(s): N81.4 - Uterovaginal prolapse, unspecified Status: Acute (2) VASQUEZ (stress urinary incontinence, female): Code(s): N39.3 - Stress incontinence (female) (male) Status: Acute Plan Note:?ASSESSMENT: - Pelvic organ prolapse, stage 4, cervix at +4. - Stress urinary incontinence. PLAN: - We discussed the treatment options for pelvic organ prolapse, including observation, pelvic floor muscle exercises, physical therapy, pessary usage, and surgery, as well as each approach's specific risks and benefits. She opts for a sacral colpopexy. We specifically discussed the utilization of robotic sacral colpopexy. ? - She understands the risks of bleeding, infection, recurrence or prolapse, mesh exposure, damage to the bowel or urinary tract, open conversion, de dinh urinary urgency, urinary retention, post-operative stress urinary incontinence, dyspareunia, back pain, diskitis, and risks of anesthesia. In addition, she was provided written information on the etiology and treatment of pelvic organ prolapse. ? - After an extensive discussion she agrees to proceed with surgery. - We discussed the treatment options for stress urinary incontinence, including pelvic floor muscle rehabilitation, transurethral bulking agents, and mid-urethral sling procedures. She is most interested in the latter. ? - We discussed the alternatives, benefits, and risks. We discuss specifically the risks of bleeding, infection, failure to correct incontinence, damage to the urinary tract, vaginal mesh extrusion, urinary tract mesh erosion, obstructive voiding requiring a secondary procedure, de dinh or worsening irritative voiding symptoms, post-operative hip and leg pain, and the risk of anesthesia. We also discussed that treatment of stress incontinence is unlikely to improve overactive bladder symptoms if present. She was also counseled on post-operative activity restrictions. She wishes to proceed.
--- NOTE | 2025-09-03 12:21 | PM.IMHP ---
H&P: HPI History of Present Illness Date/Time: 09/03/25 12:21 Chief Complaint: Uterine prolapse Narrative: 80-year-old multiparous patient admitted for supracervical hysterectomy bilateral salpingo-oophorectomy via the robot as well as sacral colpopexy with Dr. Ornelas she complains of bulging pressure discomfort. The risks and benefits of this procedure reviewed in great detail. She had all questions answered and asked to proceed Review of Systems Review of Systems: All systems reviewed & are unremarkable except as noted in HPI and below PMFSH Social History Social History Smoking status: Never smoker Living arrangements: alone Spiritual care concerns: No Meds Home Medications and Allergies Home Medications ?Medication ?Instructions ?Recorded ?Confirmed ?Type amlodipine 5 mg tablet 5 mg PO DAILY 06/28/23 08/30/25 History atorvastatin 40 mg tablet 40 mg PO DAILY 06/28/23 08/30/25 History cholecalciferol (vitamin D3) 50 50 mcg PO DAILY 06/28/23 08/30/25 History mcg (2,000 unit) tablet (Vitamin D3) triamterene 37.5 1 tablet PO DAILY 06/28/23 08/30/25 History mg-hydrochlorothiazide 25 mg tablet citalopram 20 mg tablet 20 mg PO QAM 08/27/25 08/30/25 History apixaban 2.5 mg tablet (Eliquis) 2.5 mg PO BID #60 tabs 08/30/25 08/30/25 Rx Allergies Allergy/AdvReac Type Severity Reaction Status Date / Time hydrocodone Allergy Mild Itching Verified 08/27/25 12:03 Exam Const: General: cooperative, healthy appearing and comfortable Nutritional Appearance: average body habitus Orientation/consciousness: oriented to person, oriented to place and oriented to time Resp: Effort & Inspection: normal respiratory effort Cardio: Rate: regular rate Rhythm: regular rhythm Heart sounds: S1 normal heart sound present and S2 normal heart sound present GI: Inspection: normal to inspection : External Female Exam: normal external appearance Speculum Exam - Vagina: normal appearance of the vagina Speculum Exam - Cervix: normal appearance of the cervix (Prolapse present) Bimanual exam- vagina & uterus: soft Bimanual Exam- Adnexa, other: normal adnexae Assessment and Plan Assessment and plan (1) Uterine prolapse: Code(s): N81.4 - Uterovaginal prolapse, unspecified Status: Acute (2) VASQUEZ (stress urinary incontinence, female): Code(s): N39.3 - Stress incontinence (female) (male) Status: Acute Plan I will proceed with supracervical hysterectomy bilateral salpingo-oophorectomy via robot
--- NOTE | 2025-09-08 20:45 | PM.IMHP ---
H&P: HPI History of Present Illness Date/Time: 09/08/25 20:45 Chief Complaint: presents for surgery Narrative: Uterine prolapse/VASQUEZ Review of Systems Review of Systems: All systems reviewed & are unremarkable except as noted in HPI and below PMFSH Past Medical History Medical History (Updated 09/08/25 @ 20:46 by Pb Ornelas MD) VASQUEZ (stress urinary incontinence, female) Uterine prolapse Social History Social History Smoking status: Never smoker Living arrangements: alone Spiritual care concerns: No Meds Home Medications and Allergies Home Medications ?Medication ?Instructions ?Recorded ?Confirmed ?Type amlodipine 5 mg tablet 5 mg PO DAILY 06/28/23 08/30/25 History atorvastatin 40 mg tablet 40 mg PO DAILY 06/28/23 08/30/25 History cholecalciferol (vitamin D3) 50 50 mcg PO DAILY 06/28/23 08/30/25 History mcg (2,000 unit) tablet (Vitamin D3) triamterene 37.5 1 tablet PO DAILY 06/28/23 08/30/25 History mg-hydrochlorothiazide 25 mg tablet citalopram 20 mg tablet 20 mg PO QAM 08/27/25 08/30/25 History apixaban 2.5 mg tablet (Eliquis) 2.5 mg PO BID #60 tabs 08/30/25 08/30/25 Rx Allergies Allergy/AdvReac Type Severity Reaction Status Date / Time hydrocodone Allergy Mild Itching Verified 08/27/25 12:03 Exam Narrative: Cameron +4 + urethral mobility Assessment and Plan Assessment and plan (1) VASQUEZ (stress urinary incontinence, female): Code(s): N39.3 - Stress incontinence (female) (male) Status: Acute (2) Uterine prolapse: Code(s): N81.4 - Uterovaginal prolapse, unspecified Status: Acute Plan Robotic Sacral Colpopexy/Urethral sling/cystoscopy
[2025-09-09] VITALS (30 sets, daily range): BP systolic 96–132; BP diastolic 44–96; PULSE 81–112; RESP 11–22; TEMP 36.3–37.2; O2SAT 91–100; BMI 24.3
--- OUTSIDE RECORDS SUMMARY | 2025-09-09 02:12 | XMS_ITS | Encounter Summary ---
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
--- OUTSIDE RECORDS SUMMARY | 2025-09-09 02:12 | XMS_ITS | Encounter Summary ---
Author Organization 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
--- OUTSIDE RECORDS SUMMARY | 2025-09-09 02:12 | XMS_ITS | Clinical Summary ---
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
--- OUTSIDE RECORDS SUMMARY | 2025-09-09 02:12 | XMS_ITS | Encounter Summary ---
Author Organization [facility] Healthcare Address [address] [place] [address] Care Team Providers Care Taxi Proprietor Name Role Phone Willy Hollis MD Primary Care Provider [phone] Dhara Velasco MD Primary Care Provide r Willy Hollis MD Primary Care Provider [phone] Reg Hook MD Primary Care Provider [phone] aLurita Grewal NP Primary Care Provider [phone] Tono Sigala MD Primary Care Provider Mendez Clark MD Primary Care Provi margot Reason for Visit * Reason Onset Date Comments Scheduling Appointments 07/11/2020 Called f or DEXA appointment; No answer Encounter Details Date Type Department Care Team (Late st Contact Info) Description 07/11/2020 Telephone [facility] Imaging Center [address] [place] [address] Janice Carroll RT Scheduling Appointments (Called for [...] on file 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 Gender Identity Not on file Sexual Orientation Not on file documented as of this encounter Plan of Treatment Not on file documented as of this encounter Visit Diagnoses Not on filedocumented in this encounter Additional Health Concerns Infection Onset Date Last Indicated Resolved Time COVID: Suspected 09/27/2021 09/27/2021 09/27/2021 10:14 AM CENTRIFUGAL CASTING MACHINE TENDER COVID19 09/27/2021 09/27/2021 10/11/2021 3:05 AM CENTRIFUGAL CASTING MACHINE TENDER COVID: Recovered Comment:Added based on recent COVID [...] documented as of this encounter Care Teams Taxi Proprietor Relationship Specialty Start Date End Date Willy Hollis MD PCP - General 01/14/17 01/26/22 Dhara Velasco MD [address] [place] [address] [address] [place] [address] PCP - General 01/27/22 02/07/22 Willy Hollis MD [address] [place] [address] [place] [address] PCP - General 02/08/22 03/07/22 Reg Hook MD [address] [place] [address] PCP - General Family Medicine 03/08/22 08/07/23 Laurita Grewal NP [address] [place] [address] PCP - General Family Medicine 08/08/23 10/31/23 Tono Sigala MD [address] [place] [address] PCP - General Family Medicine 11/01/23 09/24/24 Mendez Clark MD [address] [facility] [address] [place] [address] PCP - General Family Practice 09/25/24 documented as of this encounter
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
--- OUTSIDE RECORDS SUMMARY | 2025-09-09 02:12 | XMS_ITS | Encounter Summary ---
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
--- OUTSIDE RECORDS SUMMARY | 2025-09-09 02:12 | XMS_ITS | Encounter Summary ---
Author Organization [facility] Address [address] [facility] [address] [place] [address] Care Team Providers Care Package Sealer Name Role Phone Willy Hollis MD Primary Care Provider [phone] Willy Hollis MD Primary Care Provider [phone] Dhara Velasco MD Primary Care Provide r Willy Hollis MD Primary Care Provider [phone] Reg Hook MD Primary Care Provider [phone] Laurita Grewal NP Primary Care Provider [phone] Tono Sigala MD Primary Care Provider Mendez Clark MD Primary Care Provi margot Encounter Details Date Type Department Care Team (Late st Contact Info) Description 12/23/2016 Orders Only [facility] Internal [facility] Provider, MD Bob [address] [place] [address] Social History Tobacco Use Types Packs/Day Years Used Date Smoking Tobacco: Never Alcohol Use Standard Drinks/Week Comments No 0 (1 standard drink = 0.6 oz pur e alcohol) Comments Unknown Sex and Gender Information Value Date Recorded Sex Assigned at Not on file Legal Sex Female 11:55 PM 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 Gender Identity Not on file Sexual Orientation [...] COVID: Suspected 09/27/2021 09/27/2021 09/27/2021 10:14 AM 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 COVID19 09/27/2021 09/27/2021 10/11/2021 3:05 AM 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 COVID: Recovered Comment:Added based on recent COVID [...] documented as of this encounter Care Teams Package Sealer Relationship Specialty Start Date End Date Willy Hollis MD PCP - General 01/14/17 01/26/22 Willy Hollis MD PCP - General 12/11/16 01/13/17 Dhara Velasco MD [address] [place] [address] [address] [place] [address] PCP - General 01/27/22 02/07/22 Willy Hollis MD [address] [facility] [address] [place] [address] PCP - General 02/08/22 03/07/22 Reg Hook MD [address] [place] [address] PCP - General Family Medicine 03/08/22 08/07/23 Laurita Grewal, ACCOUNT SUPPORT SPECIALIST [address] [place] [address] PCP - General Family Medicine 08/08/23 10/31/23 Tono Sigala MD [address] [place] [address] PCP - General Family Medicine 11/01/23 09/24/24 Mendez Clark MD [address] [facility] [address] [place] [address] PCP - General Family Practice 09/25/24 documented as of this encounter
--- NOTE | 2025-09-09 06:44 | WPDHPUPDATE1 ---
History and Physical Update Update Date/Time: 09/09/25 06:44 History and Physical has been reviewed, including an updated exam of the patient. There are NO changes in the patient's condition. Risks, benefits, and alternatives have been discussed and questions answered. Patient agrees to proceed with procedure.
[2025-09-09] MEDS: KETOROLAC 15 MG/ML VIAL (*BKC) IV PUSH ×2 (07:00→17:31)
[2025-09-09] MEDS: ACETAMINOPHEN 500 MG TABLET 1000 MG PO (07:00)
--- NOTE | 2025-09-09 07:13 | WPDHPUPDATE1 ---
History and Physical Update Update Date/Time: 09/09/25 07:13 History and Physical has been reviewed, including an updated exam of the patient. There are NO changes in the patient's condition. Risks, benefits, and alternatives have been discussed and questions answered. Patient agrees to proceed with procedure.
--- NOTE | 2025-09-09 07:23 | WPDANESEPP ---
Anes - Eval Pre Procedure Procedure: Operation Date: 09/09/25 07:30 Proposed Procedures p Robotic Sacrocolpopexy, Urethral Sling - Pb Ornelas MD s Robotic Assisted Supracervical Hysterectomy with Bilateral Salpingo-oophorectomy - Willy Rosales MD Date/Time: 09/09/25 07:23 Pre Op Diagnosis: uterine prolapse,cystocele,stress incont Patient Data Age: 80 Gender: F Height: 1.49 m Weight: 52.7 kg Last Vital Signs Temp 37.1 C 08/27/25 12:09 Pulse 88 08/27/25 12:09 Resp 16 08/27/25 12:09 BP 118/81 08/27/25 12:09 Pulse Ox 100 08/27/25 12:09 O2 Del Method Room Air 08/27/25 12:09 Allergies Allergy/AdvReac Type Severity Reaction Status Date / Time hydrocodone Allergy Mild Itching Verified 08/27/25 12:03 Home Medications ?Medication ?Instructions ?Recorded ?Confirmed ?Type amlodipine 5 mg tablet 5 mg PO DAILY 06/28/23 08/30/25 History atorvastatin 40 mg tablet 40 mg PO DAILY 06/28/23 08/30/25 History cholecalciferol (vitamin D3) 50 50 mcg PO DAILY 06/28/23 08/30/25 History mcg (2,000 unit) tablet (Vitamin D3) triamterene 37.5 1 tablet PO DAILY 06/28/23 08/30/25 History mg-hydrochlorothiazide 25 mg tablet citalopram 20 mg tablet 20 mg PO QAM 08/27/25 08/30/25 History apixaban 2.5 mg tablet (Eliquis) 2.5 mg PO BID #60 tabs 08/30/25 08/30/25 Rx Patient hx anesthesia problems: none Family hx anesthesia problems: none Results Review: All pre-operative results and documents have been reviewed as part of the pre-operative evaluation. [facility] Past Medical History Medical History (Updated 09/09/25 @ 07:23 by Urvashi Rodriguez CRNA) Atrial flutter Hypertension Dyslipidemia VASQUEZ (stress urinary incontinence, female) Uterine prolapse Social History Social History Smoking status: Never smoker Living arrangements: alone Spiritual care concerns: No Exam Day of Procedure 09/09/25 07:23
[2025-09-09] MEDS: metroNIDAZOLE 500 MG/ISO 100ML 500 MG/100 ML BAG 100 MG IVPB ×3 (07:32→23:34)
[2025-09-09] MEDS: ceFAZolin 2 GM in SODIUM CHLORIDE 0.9% IV 50 ML 100 ML IVPB (07:32)
--- NOTE | 2025-09-09 07:59 | P.PNAN_ITS ---
Anes - Eval Final PreProcedure Day of Procedure 09/09/25 07:59 Patient weight: normal Heart: irregular rhythm Lungs: clear to auscultation Airway: Mallampati scale class II Neurological: alert and oriented Last oral intake: >/= 8 hours ASA classification: III Emergent: no Anesthetic plan: proceed Anesthesia type and monitoring: general ETT Results Review: All pre-operative results and documents have been reviewed as part of the pre- operative evaluation. Informed Consent: The patient's anesthetic plan and its attendant risks and benefits were discussed with the patient/family/POA. Questions were solicited and answers provided to the satisfaction of the patient/family/POA.
[2025-09-09] MEDS: BUPIVACAINE/EPINEPHRINE 0.5% 50 ML VIAL 40 ML INFILTRATE (08:13)
[2025-09-09] MEDS: LACTATED RINGERS 1,000 ML 30 ML IV CONT ×2 (08:13→10:43)
--- NOTE | 2025-09-09 08:24 | W.PM.PROC2 ---
Procedure Note - Detailed Date of Procedure 09/09/25 Pre-op Diagnosis uterine prolapse,cystocele,stress incont Post-op Diagnosis Same Procedure Performed Robotic so supracervical hysterectomy and bilateral salpingo-oophorectomy Surgeon Willy Rosales MD Anesthesia General Indications 80-year-old female with uterine prolapse stress incontinence Findings Small uterus small ovaries and tubes Description of Procedure Patient was prepped and draped in the normal sterile fashion placed in the dorsal lithotomy position. Under excellent general trach anesthesia weighted speculum placed in posterior fornix vagina. Anterior lip of the cervix grasped with single-tooth tenaculum Weber's cannula inserted the cervix attached to the single-tooth to be used later for uterine manipulation the bladder was drained with a 16 Turkish catheter. The instruments were withdrawn and Dr. Ornelas proceeded with the docking of the robot. Attention was turned to the console the left round ligament grasped, burned, cut. Anterior bladder flap was formed by sharply dissecting the peritoneum and dissecting the peritoneum and pushing the bladder caudally away from the cervix uterus the opposite round ligament was clamped, burned, cut. Next the left infundibulopelvic structure was skeletonized remove the left ovary and tube this was serially clamped burned and cut and brought to level of previously cut round ligament. A similar fashion remove the right ovary and tube, the infundibulopelvic structure was skeletonized clamping burning cutting and bringing this to level of previously cut round ligament. The cardinal broad ligaments on the left were then serially skeletonized clamping burning cutting and bringing this down the lateral edge of the uterus until the uterine vessels could be seen on the left these were individually clamped, burned, cut. In similar fashion the cardinal broad ligaments were skeletonized clamping burning and cutting hugging the cervix and uterus until the uterine vessels could be seen on the right these were individually clamped, burned, cut. Blanching the uterus was noted and a supracervical incision the uterus ovaries and tubes placed in Endo-Catch. Blood loss was 5cc to this point. Dr. Ornelas took over from there there were no complications up to this point Estimated Blood Loss 5 Drains No Packing No Pathology Yes Complications No immediate complications Condition Stable Disposition No change
--- NOTE | 2025-09-09 08:31 | S_PTH ---
PATIENT: Ronda Hernandez LOC: [id number] U#:[id number] AGE/SX: 80/F ROOM: 242 RE09/10/[address]: Willy Rosales MD : 1945 BED: 01 DIS: 09/12/2025 SPEC #: [id number] RECD: 09/09/25 11:38 STATUS: RENETTA REQ #: [id number] IGNACIO: 09/09/25 08:[address]: Willy Mccullough DEPT: [facility] Surgical RECD BY: Shannon Henry ENTERED: 09/09/25 11:39 SP TYPE: Surgical OTHR DR: MD Mendez SageMD Tissues: A - Uterus Procedures: Hematoxylin and Eosin Stain Gross and Microscopic Level 5
--- NOTE | 2025-09-09 10:26 | W.PM.PROC2 ---
Procedure Note - Detailed Date of Procedure 09/09/25 Pre-op Diagnosis uterine prolapse,stress incont Post-op Diagnosis Same Procedure Performed Robotic assisted laparoscopic sacral colpopexy Urethral sling Cystoscopy Surgeon Pb Ornelas MD Anesthesia General Indications A woman with uterine prolapse as well as stress incontinence. She desires surgical correction. She is here for the above. She understands risks of bleeding, infection, diskitis, damage to surrounding organs, bowel injury, bowel obstruction, mesh related complications including exposure and extrusion, postoperative voiding dysfunction including incontinence and retention, need for ancillary procedures, dyspareunia, recurrence of prolapse, and other perioperative intraoperative postoperative complications. She agrees to proceed. Findings See below Description of Procedure She was correctly identified. Informed consent obtained. She from the operating room. She was given general anesthesia. She was given appropriate perioperative antibiotics. She was placed a low lithotomy position. Pressure points were padded. A time-out performed. I marked out the skin 3 fingerbreadths cephalad to the umbilicus. I anesthetized the skin. I incised the skin. I dissected down to the fascia. I grasped the fascia with Renetta clamps. I entered the fascia sharply in a Henry type technique. I placed sutures for later fascial closure. I placed a midline trocar. I examined the abdomen. There is no sign of any injury. Under direct vision I placed 2 additional trocars in the right upper quadrant and 2 additional trocars the left upper quadrant. She was placed in steep Trendelenburg. The robot was docked. Her physical sciences instructor completed their portion of the procedure. Please see that operative report for details. I then sat at the console. The Sizer in the vagina created plane on the anterior and posterior vaginal wall. I took great care not to injure the vagina, bladder, or rectum. I used a 2-0 Vicryl in a running fascia to close the cervical os. I introduced the mesh into the abdomen. I sewed the anterior leaflet of mesh on the anterior vaginal wall. I sewed the posterior leaflet of mesh on the posterior vaginal wall. This was done with several sutures of 2 0 [place]-Jason. I reflected the colon laterally. I opened the posterior peritoneum over the sacral promontory. I carried this into the cul-de-sac. I freed up the edges for later retroperitonealization. I located the anterior longitudinal ligament the sacrum. I cleaned off all fatty tissues. I then tensioned my mesh appropriately. I did a vaginal exam the bedside. I assured prolapse reduction without undue tension. I then sewed the proximal leaflet of mesh onto the anterior longitudinal ligament of the sacrum with several sutures of 2 0 [place]-Jason. I then used a 2 0 Monocryl to completely and meticulously retroperitonealized all mesh. I allowed the colon to go back to its normal anatomic location. There is no sign of any impingement. The specimen was then removed. All ports removed. Fascia was tied down. Additional sutures were used to fully close the fascia. Skin was closed with Monocryl and surgical glue. She was repositioned and prepped for urethral sling. There was excellent apical support. No undue tensioning. I marked out the inner thigh incisions. I anesthetized the skin and made the incisions. I then anesthetized the anterior vaginal wall at the mid urethra. I made a 1 cm incision. I dissected out laterally taking great care not to injure the refilled vaginal wall. I passed the helical trocars. I did this 1st on the left and then on the right. This was done from the thigh incision towards the vaginal incision. Sling was connected to the trocars and brought out the thigh incision. I tensioned the sling appropriately. I cut and the plastic sheaths. I closed the incision with 2 0 Vicryl. I then performed cystoscopy. There was no tumors or surgical artifact. Bilateral ureteral patency was documented by seen clear yellow urine or passing a wire up the ureter. There is no surgical artifact in the bladder or urethra. I cut the excess sling material. Close incision with glue. She was awakened and transferred to PACU in stable condition. Implants Sacral colpopexy mesh Urethral sling Estimated Blood Loss 40 Packing No Pathology None sent Complications No immediate complications Condition Stable Disposition PACU
[2025-09-09] MEDS: LACTATED RINGERS 1,000 ML 999 ML IV CONT (12:27)
[2025-09-09] MEDS: KCL 20 MEQ/D5/0.45% SOD CHL 1,000 ML 100 ML IV CONT (13:50)
--- NOTE | 2025-09-09 15:17 | PC.NURSE ---
1340.Patient transferred to post room #289 via bed. Support person present. Oriented to unit, room, information board, rooming in, admission packet and security measures. Patient verbalizes understanding.
[2025-09-09] MEDS: ceFAZolin 1 GM in SODIUM CHLORIDE 0.9% IV 50 ML 100 ML IVPB ×2 (16:03→23:33)
[2025-09-09] MEDS: DOCUSATE SODIUM 100 MG CAPSULE PO (16:15)
[2025-09-09] MEDS: ATORVASTATIN 40 MG TABLET PO (16:15)
--- NOTE | 2025-09-09 18:31 | PC.NURSE ---
1829. Called Dr Nakul Rosales to discuss patient's boarderline low output level & consider to give patient a bolus. Asked Dr Nakul Rosales if it was also fine to proceed with giving the patient her home Lasix medication (Maxide) and he confirmed to give the medication. He stated to watch the output and encourage PO fluids, but no need to give a bolus at this time. This RN also asked Dr Sun if the patient could have her catheter taken out early since she had been bothered by it at times this evening. He stated it would be find to take out early but the patient would need to be bladder scanned and meet protocol for catheter removal. He stated she would also need to be able to get up to the bathroom. Reported this information to the night RN Yary Christiansen taking care of this patient.
[2025-09-09] MEDS: TRIAMTERENE 37.5 MG/HCTZ 25 MG (MAXZIDE) TABLET 1 TAB PO (18:57)
[2025-09-09] MEDS: FUROSEMIDE INJ 40 MG/4 ML VIAL 20 MG IV PUSH (19:49)
--- NOTE | 2025-09-09 20:14 | ECG_ITS ---
Test Date: 2025-09-09 20:49:05 Measurements Intervals [place] Rate: 96 P: 0 ND: 0 QRS: 16 QRSD: 73 T: -39 QT: 347 QTc: 438 Interpretive Statements ATRIAL FLUTTER LOW QRS VOLTAGE IN PRECORDIAL LEADS NONSPECIFIC T-WAVE ABNORMALITY Electronically Signed On 09-10-2025 05:54:09 CARE MANAGEMENT ASSISTANT by Adrian Tucker D.O
[2025-09-09] MEDS: IPRATROPIUM 0.5 MG/ALBUTEROL SULFATE 2.5 MG (BASE) AMPUL.NEB 3 ML INHALATION (20:46)
--- NOTE | 2025-09-09 21:59 | PC.NURSE ---
Patients relative, Pippa updated on patient status as well as patient transferring to room 242 per patient request.
[2025-09-09 22:17] LABS: Hematocrit 28.7 % (37.0-47.0); Hemoglobin 9.4 g/dL (12.0-15.0); Immature Granulocyte Percent A 0.5 % (0-0.5); Lymphocytes Absolute Auto 0.84 K/mm3 (0.9-3.2); Mean Corpuscular HGB Conc 32.8 g/dl (32-36); Mean Corpuscular Hemoglobin 30.3 pg (26-34); Mean Corpuscular Volume 92.6 fl (80-100); Nucleated Red Blood Cells Absolute Auto 0.000 K/mm3 (0.0-0.012); Nucleated Red Blood Cells Perc 0.0 % (0.0-0.2); Platelet Count Result 211 k/mm3 (150-375); Red Blood Count 3.10 M/mm3 (4.2-5.4); White Blood Count 16.2 K/mm3 (4.5-10.0)
[2025-09-09 22:34] LABS: Alanine Aminotransferase 24 U/L (6-35); Albumin Level 3.4 g/dL (3.5-5.1); Alkaline Phosphatase 95 U/L (38-126); Anion Gap 8 mmol/L (4-12); Aspartate Amino Transferase 36 U/L (14-36); Bilirubin,Total 0.8 mg/dL (0.2-1.3); Blood Urea Nitrogen 13 mg/dL (7-17); Calcium 8.4 mg/dL (8.4-10.2); Carbon Dioxide 22 mmol/L (22-30); Chloride 101 mmol/L (98-107); Estimated Glomerular Filt Rate 45; Glucose 156 mg/dL (65-110); Potassium 3.8 mmol/L (3.4-5.0); Sodium 131 mmol/L (137-145); Total Protein 6.2 g/dL (6.3-8.2)
--- NOTE | 2025-09-09 22:41 | PM.IMCN ---
Assessment and Plan Assessment and plan (1) Acute hypoxic respiratory failure: Code(s): J96.01 - Acute respiratory failure with hypoxia Status: Acute (2) Acute cardiac pulmonary edema: Code(s): I50.1 - Left ventricular failure, unspecified Status: Acute (3) Acute hyponatremia: Code(s): E87.1 - Hypo-osmolality and hyponatremia Status: Acute (4) Acute postoperative anemia due to expected blood loss: Code(s): D62 - Acute posthemorrhagic anemia Status: Acute (5) S/P bilateral salpingo-oophorectomy: Onset Date: 09/09/25 Code(s): Z90.722 - Acquired absence of ovaries, bilateral; Z90.79 - Acquired absence of other genital organ(s) Status: Acute (6) S/P laparoscopic supracervical hysterectomy: Onset Date: 09/09/25 Code(s): Z90.711 - Acquired absence of uterus with remaining cervical stump Status: Acute (7) Status post sacrocolpopexy: Onset Date: 09/09/25 Code(s): Z98.890 - Other specified postprocedural states Status: Acute (8) Acute lactic acidosis: Code(s): E87.21 - Acute metabolic acidosis Status: Acute (9) Hypoalbuminemia: Code(s): E88.09 - Other disorders of plasma-protein metabolism, not elsewhere classified Status: Acute (10) Goals of care, counseling/discussion: Code(s): Z71.89 - Other specified counseling Status: Acute Plan Patient developed acute hypoxic respiratory failure due to pulmonary edema likely from fluid overload in the setting of 1.5 L of fluid administration during surgery with additional fluids given in the form of antibiotics and complicated by the patient's positioning during the OR. During bladder procedures the patient is in Trendelenburg for a significant amount of time likely causing some component of volume redistribution. The patient had also not produced much urine in may be having a little bit of SIADH given that she also has developed some acute hyponatremia. Patient is started to have some urine output after 20 mg of IV Lasix. Rubio catheter has been placed to monitor strict I&O's. Will stop IV fluid administration. Will wean oxygen as tolerated. Differential does include possible infectious process seems less likely. The patient is not having active chest pain but is having chest heaviness. Troponin was obtained and was negative so cardiac ischemia is unlikely specially in the setting that the patient has had a negative Lexiscan and this month. She does have some lactic acidosis likely due to her acute hypoxic state. Will trend lactic acid level. Given that the patient's Eliquis was placed on hold and her acute immobilization in surgical procedures theoretically she could be at increased risk for DVT or pulmonary embolism. Given acute hypoxia will send patient for CTA with PE study of the chest to rule out pulmonary embolism. The time I finished documentation CTA with PE study had been completed. I reviewed imaging personally I do not see any obvious evidence of a large pulmonary embolism. But bilateral pleural effusions that appear to be small and bilateral pulmonary edema noted. Radiologic interpretation pending. Will continue previously ordered Lovenox by primary service. He no need for therapeutic Lovenox unless she official interpretation demonstrates pulmonary embolism. Will give the patient a dose of 40 mg IV Lasix in a.m.. Will repeat CBC, CMP and magnesium in a.m.. Patient does have chronic kidney disease and had not had labs done since the 27 of August. I ordered stat electrolyte panel which has returned patient's creatinine is actually lower than previous. She also has some hypoalbuminemia and low total protein likely due to dilutional status consistent with clinical volume overload. Given the patient's chronic kidney disease will discontinue Toradol. The patient states that she would want all care including pressors and cardiac support with medications but if she was not able to breathe with noninvasive ventilatory support or if her heart were to stop she would prefer a natural and would not want heroic measures. Subsequently will change patient's code status to DNR/DNI. MEDICAL DECISION MAKING NARRATIVE -Spoke with the ED provider in detail regarding patient's evaluation, workup and management -Patient seen and examined at bedside -Collaborated with patient's nurse at the bedside in detail and addressed all concerns -Labs, electrolytes, radiology, investigations and test results personally reviewed and interpreted unless otherwise specified -ED/Consult/Nursing/Ancilliary notes on the chart reviewed and appreciated -Spoke with patient at bedside and diagnosis and plan of care was discussed. All questions answered. HPI Date of Consult Consult date: 09/10/25 Requesting Physician: Pb Ornelas MD Primary Care Provider: Mendez ClarkMD Consult Narrative Reason for consult: Hypoxia Narrative: Ronda Hernandez is a 80 year old female with a past medical history of stress urinary incontinence, uterine prolapse, chronic kidney disease stage 3, persistent atrial flutter and essential hypertension who will him to the hospital for a planned hysterectomy and a bladder suspension surgery who postoperatively developed hypoxia. Evidently postoperatively the patient was hypoxic. They were able to wean the patient's oxygen down to 4 L in the PACU. But after arrival to the obstetrics floor the patient's oxygen requirement increased up to 5 L. She developed some crackles and tachycardia. Her oxygen requirement increased to 5 L nasal cannula. She denied any chest pain but reported feeling heaviness. She was noted to have a nonproductive cough at the time of my evaluation. She states that she has a chronic nonproductive cough for many years. She has not been having any fevers or chills. She denies any lower extremity swelling or orthopnea. The patient does not have a history of known CHF in fact had echocardiogram on the 02 of September that was normal except for severe left atrial enlargement and moderate right atrial enlargement and [id number] mitral valve regurgitation with normal ejection fraction. She had and normal Lexiscan stress test as well. However chest x-ray was performed due to a patient's worsening hypoxia and demonstrated evidence of pulmonary edema and subcutaneous emphysema. On review of anesthesia records the patient did receive 1.5 L of LR and additional volume of fluids in the form of antibiotics and after transfer to the floor the patient was still receiving maintenance IV fluids at 100 mL an hour. The patient was having low urine output postoperatively. Patient received a DuoNeb x1 which did not improve her respiratory symptoms. A at the EKG was ordered and on my review and interpretation demonstrated atrial flutter with a rate of 96. Stat labs were obtained which demonstrated leukocytosis with a white count of 16.2 hemoglobin had trended down from outpatient labs from 12.6 down to 9.4, electrolyte panel demonstrated mildly low sodium 131 and creatinine and improved from prior out patient value of 1.4 down to 1.7. Lactic acid was initially 2.1 but did trend down to 1.5. Patient did start having urine output after IV Lasix and has had about 500 mL of urine output by the time of my evaluation. Rubio catheter remains in place for careful monitoring of I&O's. The patient reports that she was recently diagnosed with atrial flutter on preoperative evaluation. She was started on Eliquis in the middle August. She had only been on the medications a few days before they had to be held for her surgery. She denies any calf pain or lower extremity swelling. She denies any history of asthma, COPD or bronchitis. Review of Systems Review of Systems: 12 systems were reviewed with pertinent positives and negatives per HPI. Except as documented in the HPI, all other systems were reviewed and are negative. [facility] Past Medical History Medical History (Updated 09/10/25 @ 04:15 by Annie Lopez DO) Depression Osteoporosis Chronic kidney disease, stage 3a Atrial flutter Hypertension Dyslipidemia VASQUEZ (stress urinary incontinence, female) Uterine prolapse Surgical History Surgical History (Updated 09/10/25 @ 04:04 by Annie Lopez DO) Status post cataract extraction of both eyes with insertion of intraocular lens History of tonsillectomy and adenoidectomy S/P bilateral salpingo-oophorectomy (09/09/25) S/P laparoscopic supracervical hysterectomy (09/09/25) Status post sacrocolpopexy (09/09/25) Family History Family History (Updated 09/10/25 @ 04:00 by Annie Lopez DO) Other Family history non-contributory Social History Social History (Updated 09/10/25 @ 04:03 by Annie Lopez DO) Social History: Patient is and she lives alone. She had 1 son who was injured by a drunk line haul driver and lived for 15 years in a vegetative state at which time she was his primary caregiver. She is a lifelong nonsmoker and does not drink alcohol. Code status: DNR/DNI per patient request Surrogate decision maker: Jesse (nieces) Smoking status: Never smoker Living arrangements: alone Spiritual care concerns: No Meds Home Medications and Allergies Home Medications ?Medication ?Instructions ?Recorded ?Confirmed ?Type amlodipine 5 mg tablet 5 mg PO DAILY 06/28/23 08/30/25 History atorvastatin 40 mg tablet 40 mg PO DAILY 06/28/23 08/30/25 History cholecalciferol (vitamin D3) 50 50 mcg PO DAILY 06/28/23 09/09/25 History mcg (2,000 unit) tablet (Vitamin D3) triamterene 37.5 1 tablet PO DAILY 06/28/23 09/09/25 History mg-hydrochlorothiazide 25 mg tablet citalopram 20 mg tablet 20 mg PO QAM 08/27/25 08/30/25 History apixaban 2.5 mg tablet (Eliquis) 2.5 mg PO BID #60 tabs 08/30/25 09/09/25 Rx Held on 09/09/25. Instructions: Resume on 09/11/25. docusate sodium 100 mg capsule 100 mg PO BID #40 caps 09/09/25 Rx (Colace) tramadol 50 mg tablet 50 mg PO Q6H PRN pain #20 tabs 09/09/25 Rx Allergies Allergy/AdvReac Type Severity Reaction Status Date / Time hydrocodone Allergy Mild Itching Verified 08/27/25 12:03 Vital Signs Vital Signs - 24 hr 09/09/25 07:23 09/09/25 10:22 09/09/25 10:30 Temperature 98.3 F 98.2 F Pulse Rate 97 112 H 110 H Respiratory Rate 14 14 Blood Pressure 119/78 99/44 L 104/64 Pulse Oximetry 100 95 95 Oxygen Delivery Room Air Simple Face Mask Simple Face Mask Oxygen Flow Rate 12 10 09/09/25 10:45 09/09/25 11:00 09/09/25 11:13 Temperature Pulse Rate 94 101 H Respiratory Rate 22 H 11 L Blood Pressure 115/67 132/96 H Pulse Oximetry 98 95 96 Oxygen Delivery Simple Face Mask Simple Face Mask Nasal Cannula Oxygen Flow Rate 10 10 4 09/09/25 11:15 09/09/25 11:25 09/09/25 11:30 Temperature Pulse Rate 96 105 H Respiratory Rate 18 18 Blood Pressure 99/77 L 104/59 L Pulse Oximetry 92 96 93 Oxygen Delivery Nasal Cannula Nasal Cannula Nasal Cannula Oxygen Flow Rate 6 5 4 09/09/25 11:45 09/09/25 12:00 09/09/25 12:07 Temperature Pulse Rate 98 97 Respiratory Rate 18 18 Blood Pressure 98/71 L 96/67 L Pulse Oximetry 93 93 93 Oxygen Delivery Nasal Cannula Nasal Cannula Nasal Cannula Oxygen Flow Rate 4 4 3 09/09/25 12:15 09/09/25 12:30 09/09/25 12:45 Temperature 97.4 F L Pulse Rate 110 H 101 H 99 Respiratory Rate 18 18 16 Blood Pressure 104/62 110/82 108/79 Pulse Oximetry 93 93 94 Oxygen Delivery Nasal Cannula Nasal Cannula Nasal Cannula Oxygen Flow Rate 3 3 3 09/09/25 13:00 09/09/25 13:15 09/09/25 13:23 Temperature Pulse Rate 98 98 109 H Respiratory Rate 18 18 18 Blood Pressure 103/71 109/69 109/76 Pulse Oximetry 92 92 94 Oxygen Delivery Nasal Cannula Nasal Cannula Nasal Cannula Oxygen Flow Rate 3 3 3 09/09/25 13:45 09/09/25 14:00 09/09/25 14:44 Temperature 99 F Pulse Rate 96 85 102 H Respiratory Rate 16 18 18 Blood Pressure 107/63 Pulse Oximetry 92 92 92 Oxygen Delivery Nasal Cannula Oxygen Flow Rate 4 09/09/25 15:16 09/09/25 16:19 09/09/25 18:45 Temperature 98 F Pulse Rate 98 91 97 Respiratory Rate 18 16 16 Blood Pressure 114/65 Pulse Oximetry 95 95 93 Oxygen Delivery Oxygen Flow Rate 09/09/25 20:35 09/09/25 20:40 09/09/25 20:50 Temperature Pulse Rate 96 83 102 H Respiratory Rate 22 H 20 20 Blood Pressure Pulse Oximetry 91 Oxygen Delivery Nasal Cannula Oxygen Flow Rate 5 09/09/25 20:54 Temperature Pulse Rate 83 Respiratory Rate 20 Blood Pressure Pulse Oximetry 92 Oxygen Delivery Nasal Cannula Oxygen Flow Rate 3 Exam Narrative: Weight 53.6 kg BMI 24.3 Const: Other: Mildly ill-appearing, appears younger than stated age, lying in bed with head of bed at 20? HENMT: Other: Mucous membranes are tacky, no oral pharyngeal erythema Eyes: Other: Pupils are equal and reactive, no scleral icterus, no conjunctival pallor Neck: Other: No JVD, no lymphadenopathy Resp: Other: Bilateral crackles throughout, no tachypnea, no accessory muscle use Cardio: Other: Regular rate, regular rhythm, 2+ bilateral radial pedal pulses, no JVD GI: Other: Slightly distended, expected tenderness episode of with postoperative state, positive bowel sounds : Other: Rubio catheter in place with pale yellow urine about 500 mL Skin: Other: Mild pallor, non jaundice, cool to touch, no mottling Neuro: Other: Alert orient x4, speech is clear, no facial asymmetry, no localizing neurologic deficits noted during the course of conversation Extrem: Other: No clubbing, cyanosis or edema, varicose veins noted to the lower extremities but most notably to the left upper thigh Psych: Other: Appropriate mood and affect, pleasant and cooperative, judgment and insight intact Results Labs 09/09/25 22:10 09/09/25 22:10 Labs: Laboratory Tests 09/09/25 22:10 09/09/25 22:10 09/09/25 22:10 WBC 16.2 H RBC 3.10 L Hgb 9.4 L D Hct 28.7 L MCV 92.6 MCH 30.3 MCHC 32.8 RDW 12.5 Plt Count 211 MPV 9.3 Immature Gran % (Auto) 0.5 Neut % (Auto) 87.2 H Lymph % (Auto) 5.2 L [place] % (Auto) 6.9 Eos % (Auto) 0.0 Baso % (Auto) 0.2 Lymph # (Auto) 0.84 L [place] # (Auto) 1.1 H Eos # (Auto) 0.0 Baso # (Auto) 0.0 Abs Immat Gran (auto) 0.08 H Absolute Neuts (auto) 14.1 H Absolute Nucleated RBC 0.000 Nucleated RBC % 0.0 D-Dimer Pending Sodium 131 L Potassium 3.8 Chloride 101 Carbon Dioxide 22 Anion Gap 8 BUN 13 D Creatinine 1.17 H Estim Creat Clear Calc Not Reportable Estimated GFR 45 L Glucose 156 H Lactic Acid 2.2 H Calcium 8.4 Total Bilirubin 0.8 AST 36 ALT 24 Alkaline Phosphatase 95 Troponin I < 0.012 Total Protein 6.2 L Albumin 3.4 L Outpatient labs from 08/27/2025 reviewed. Preop hemoglobin was 12.6 with normal white count. Preop creatinine is 1.42, preop total protein was high at 8.8 and albumin was 4.8 Preop Lexiscan stress test was negative for acute ischemia, preop echocardiogram demonstrated normal EF no evidence of diastolic dysfunction or right ventricular dysfunction, patient did have moderate right atrial enlargement and mild to moderate mitral valve regurgitation Chest x-ray: Personally reviewed and interpreted. Demonstrated diffuse pulmonary edema and mild cardiomegaly, no pleural effusions noted, radiologic interpretation correlates. EKG: Rate controlled atrial fibrillation with normal intervals. Cardiology interpretation pending Quality VTE Prophylaxis VTE prophylaxis: mechanical ordered (SCDs) and pharmacologic ordered (Lovenox) Hospitalist MIPS Advance Care Plan I have confirmed that the patient's Advanced Care Plan is present, code status is documented, or surrogate decision maker is listed in patient medical record.: Yes Medication Reconciliation I have utilized all available resources to obtain, update and review the patients current medications (includes all prescriptions, OTC, herbals, cannabis, and nutritional supplements).: Yes
[2025-09-09 22:45] LABS: Troponin I < 0.012 ng/mL (0.000-0.034)
--- NOTE | 2025-09-09 23:01 | PC.NURSE ---
Patient transferred to room 242. Report given to Lizzette at 2230. Patient transferred to room 242 at 2242 via wheelchair and oxygen. Patient belongings transferred with patient. Tele leads placed on patient when we arrived. Call light within reach and patient prompted to call with any needs. Patient voiced understanding.
[2025-09-09] MEDS: MORPHINE SULFATE (*CRX) 4 MG/ML INJ 2 MG IV PUSH (23:31)
[2025-09-10] VITALS (12 sets, daily range): BP systolic 90–102; BP diastolic 52–70; PULSE 78–98; RESP 19–20; TEMP 36.5–37.4; O2SAT 90–94
--- NOTE | ~2025-09-10 | CT_ITS ---
EXAMINATION: CTA chest PE protocol DATE: 09/10/2025 01:51 INDICATION: Hypoxia. TECHNIQUE: Computed tomography angiography (CTA) of the chest was performed with 100 mL Omnipaque-350 intravenous contrast timed to evaluate the pulmonary arteries. Coronal maximum intensity projection 3D-reconstructions were created by the technologist. Automated exposure control and iterative reconstruction technique were employed. The dose-length product was 196.86 mGy-cm. COMPARISON: None. FINDINGS: The lungs demonstrate septal thickening. There are airspace and groundglass opacities in the upper lobes and lower lobes with a dependent predominance. There are small pleural effusions. Cardiomegaly is noted. There is gas in the chest wall bilaterally and in left neck. There is no pulmonary embolus. The central pulmonary arteries are enlarged, consistent with pulmonary arterial hypertension. There is mild mediastinal lymphadenopathy. There are gallstones in the gallbladder, which is normal in size. There are cysts in right kidney measuring up to 2.2 cm. Calcifications in the spleen are consistent with old granulomatous disease. There is severe cervical spondylosis and moderate thoracic spondylosis. IMPRESSION: 1. No pulmonary embolus. 2. Diffuse lung disease, consistent with pneumonia and/or pulmonary edema. 3. Small pleural effusions. 4. Gas in the chest wall and left neck. Reviewed, dictated and finalized at location [facility]. [facility]
--- NOTE | ~2025-09-10 | XR_ITS ---
EXAMINATION: XR chest 1V portable DATE: 09/09/2025 20:24 INDICATION: History of surgery. Hypoxia. TECHNIQUE: A single frontal view of the chest was obtained. COMPARISON: None. FINDINGS: Cardiomegaly. Pulmonary vascular congestion is noted. Patchy pulmonary edema of the mid and lower lung [place]. Subcutaneous emphysema of the lower chest wall are noted on both sides. IMPRESSION: 1. Cardiomegaly with pulmonary vascular congestion and patchy airspace opacities in the mid and lower lung zones suggesting pulmonary edema mild degree. No pleural effusion. 2. Subcutaneous emphysema lower chest wall on both sides. Reviewed, dictated and finalized at location [facility] IMPRESSION: 1. Cardiomegaly with pulmonary vascular congestion and patchy airspace opacitie s in the mid and lower lung zones suggesting pulmonary edema mild degree. No pl eural effusion. 2. Subcutaneous emphysema lower chest wall on both sides.
[2025-09-10] MEDS: ALPRAZolam (*CRX) 0.5 MG TABLET PO (01:38)
[2025-09-10 05:28] LABS: Hematocrit 27.2 % (37.0-47.0); Hemoglobin 9.0 g/dL (12.0-15.0); Immature Granulocyte Percent A 0.5 % (0-0.5); Lymphocytes Absolute Auto 1.37 K/mm3 (0.9-3.2); Mean Corpuscular HGB Conc 33.1 g/dl (32-36); Mean Corpuscular Hemoglobin 30.7 pg (26-34); Mean Corpuscular Volume 92.8 fl (80-100); Nucleated Red Blood Cells Absolute Auto 0.000 K/mm3 (0.0-0.012); Nucleated Red Blood Cells Perc 0.0 % (0.0-0.2); Platelet Count Result 196 k/mm3 (150-375); Red Blood Count 2.93 M/mm3 (4.2-5.4); White Blood Count 14.4 K/mm3 (4.5-10.0)
[2025-09-10 05:50] LABS: Anion Gap 6 mmol/L (4-12); Blood Urea Nitrogen 14 mg/dL (7-17); Carbon Dioxide 25 mmol/L (22-30); Chloride 99 mmol/L (98-107); Potassium 3.9 mmol/L (3.4-5.0); Sodium 130 mmol/L (137-145)
[2025-09-10 05:51] LABS: Calcium 8.4 mg/dL (8.4-10.2); Estimated Glomerular Filt Rate 42; Glucose 122 mg/dL (65-110); Magnesium 1.7 mg/dL (1.6-2.3)
--- NOTE | 2025-09-10 07:12 | P.PNOB_ITS ---
PROJECT MANAGER RETAIL - A/P Assessment and plan (1) VASQUEZ (stress urinary incontinence, female): Code(s): N39.3 - Stress incontinence (female) (male) Status: Acute (2) Uterine prolapse: Code(s): N81.4 - Uterovaginal prolapse, unspecified Status: Acute (3) Status post sacrocolpopexy: Onset Date: 09/09/25 Code(s): Z98.890 - Other specified postprocedural states Status: Acute (4) S/P laparoscopic supracervical hysterectomy: Onset Date: 09/09/25 Code(s): Z90.711 - Acquired absence of uterus with remaining cervical stump Status: Acute (5) S/P bilateral salpingo-oophorectomy: Onset Date: 09/09/25 Code(s): Z90.722 - Acquired absence of ovaries, bilateral; Z90.79 - Acquired absence of other genital organ(s) Status: Acute (6) Acute cardiac pulmonary edema: Code(s): I50.1 - Left ventricular failure, unspecified Status: Acute Plan recovering from fluid excess Postoperative Procedures: Procedures Operation Date: 09/09/25 07:30 Actual Procedure Side Surgeon p Robotic Sacrocolpopexy, Urethral Sling, Cystoscopy Not Applicable Pb Ornelas MD s Robotic Assisted Supracervical Hysterectomy with Bilateral Salpingo- oophorectomy Bilateral Willy Rosales MD Time Spent With Patient Time: Total time spent is greater than 50% in coordination of care (as documented) at patient's floor/unit and/or counseling patient: Time with patient: 15 - 25 minutes PROJECT MANAGER RETAIL- PN:Subj Post-Op Subjective Date/time seen: 09/10/25 07:12 Subjective: patient reports feeling better, patient has no complaints and pain is well controlled Review of Systems 2 Review of Systems: 12 systems were reviewed with pertinent positives and negatives per HPI. Except as documented in the HPI, all other systems were reviewed and are negative. Exam 2 Const: General: cooperative, healthy appearing and comfortable Nutritional Appearance: average body habitus Orientation/consciousness: oriented to person, oriented to place and oriented to time Resp: Effort & Inspection: normal respiratory effort Cardio: Rate: regular rate Rhythm: regular rhythm Heart sounds: S1 normal heart sound present and S2 normal heart sound present GI: Inspection: normal to inspection and incision (wounds cdi) PROJECT MANAGER RETAIL - PN: Obj Data Vital Signs Vital Signs: Vital Signs - 24 hr 09/09/25 07:23 09/09/25 10:22 09/09/25 10:30 Temperature 98.3 F 98.2 F Pulse Rate 97 112 H 110 H Respiratory Rate 14 14 Blood Pressure 119/78 99/44 L 104/64 Pulse Oximetry 100 95 95 Oxygen Delivery Room Air Simple Face Mask Simple Face Mask Oxygen Flow Rate 12 10 09/09/25 10:45 09/09/25 11:00 09/09/25 11:13 Temperature Pulse Rate 94 101 H Respiratory Rate 22 H 11 L Blood Pressure 115/67 132/96 H Pulse Oximetry 98 95 96 Oxygen Delivery Simple Face Mask Simple Face Mask Nasal Cannula Oxygen Flow Rate 10 10 4 09/09/25 11:15 09/09/25 11:25 09/09/25 11:30 Temperature Pulse Rate 96 105 H Respiratory Rate 18 18 Blood Pressure 99/77 L 104/59 L Pulse Oximetry 92 96 93 Oxygen Delivery Nasal Cannula Nasal Cannula Nasal Cannula Oxygen Flow Rate 6 5 4 09/09/25 11:45 09/09/25 12:00 09/09/25 12:07 Temperature Pulse Rate 98 97 Respiratory Rate 18 18 Blood Pressure 98/71 L 96/67 L Pulse Oximetry 93 93 93 Oxygen Delivery Nasal Cannula Nasal Cannula Nasal Cannula Oxygen Flow Rate 4 4 3 09/09/25 12:15 09/09/25 12:30 09/09/25 12:45 Temperature 97.4 F L Pulse Rate 110 H 101 H 99 Respiratory Rate 18 18 16 Blood Pressure 104/62 110/82 108/79 Pulse Oximetry 93 93 94 Oxygen Delivery Nasal Cannula Nasal Cannula Nasal Cannula Oxygen Flow Rate 3 3 3 09/09/25 13:00 09/09/25 13:15 09/09/25 13:23 Temperature Pulse Rate 98 98 109 H Respiratory Rate 18 18 18 Blood Pressure 103/71 109/69 109/76 Pulse Oximetry 92 92 94 Oxygen Delivery Nasal Cannula Nasal Cannula Nasal Cannula Oxygen Flow Rate 3 3 3 09/09/25 13:45 09/09/25 14:00 09/09/25 14:44 Temperature 99 F Pulse Rate 96 85 102 H Respiratory Rate 16 18 18 Blood Pressure 107/63 Pulse Oximetry 92 92 92 Oxygen Delivery Nasal Cannula Oxygen Flow Rate 4 09/09/25 15:16 09/09/25 16:19 09/09/25 18:45 Temperature 98 F Pulse Rate 98 91 97 Respiratory Rate 18 16 16 Blood Pressure 114/65 Pulse Oximetry 95 95 93 Oxygen Delivery Oxygen Flow Rate 09/09/25 20:35 09/09/25 20:40 09/09/25 20:50 Temperature Pulse Rate 96 83 102 H Respiratory Rate 22 H 20 20 Blood Pressure Pulse Oximetry 91 Oxygen Delivery Nasal Cannula Oxygen Flow Rate 5 09/09/25 20:54 09/09/25 22:57 09/09/25 23:23 Temperature 97.8 F Pulse Rate 83 88 81 Respiratory Rate 20 18 Blood Pressure 105/66 Pulse Oximetry 92 92 Oxygen Delivery Nasal Cannula Oxygen Flow Rate 3 09/10/25 00:00 09/10/25 04:00 09/10/25 05:44 Temperature 97.7 F Pulse Rate 86 89 78 Respiratory Rate 20 Blood Pressure 90/52 L Pulse Oximetry 94 Oxygen Delivery Oxygen Flow Rate Intake/Output Intake/Output: Intake & Output 09/07/25 09/08/25 09/09/25 09/10/25 23:59 23:59 23:59 23:59 Intake Total 1950 450 Output Total 750 900 Balance 1200 -450 Meds/Results Medications: Active Medications Generic Name Dose Route Start Last Admin Trade Name Freq PRN Reason Stop Dose Admin Acetaminophen 650 mg 09/09/25 13:29 Acetaminophen 325 Mg Tablet PO Q4H PRN Mild Pain (1-3) or Fever Amlodipine Besylate 5 mg 09/09/25 13:29 09/09/25 16:08 Amlodipine Besylate 5 Mg Tablet PO Not Given DAILY DAI Atorvastatin Calcium 40 mg 09/09/25 13:29 09/09/25 16:15 Atorvastatin 40 Mg Tablet PO 40 mg DAILY DAI Administration Cephalexin HCl 500 mg 09/10/25 09:00 Cephalexin 500 Mg Capsule PO QID DAI Citalopram Hydrobromide 20 mg 09/09/25 13:29 09/09/25 16:09 Citalopram Hydrobromide 20 Mg Tablet PO Not Given QAM DAI Docusate Sodium 100 mg 09/09/25 13:29 09/09/25 16:15 Docusate Sodium 100 Mg Capsule PO 100 mg DAILY DAI Administration Enoxaparin Sodium 30 mg 09/10/25 09:00 Enoxaparin 30 Mg/0.3 Ml Syringe SUB-Q DAILY DAI Furosemide 40 mg 09/10/25 09:00 Furosemide Inj 40 Mg/4 Ml Vial IV PUSH DAILY DAI Guaifenesin/Dextromethorphan 5 ml 09/09/25 20:50 09/09/25 22:16 Guaifenesin/Dextromethorphan 10 Ml Udc PO 5 ml Q4H PRN Administration Cough Metronidazole 500 mg in 100 mls @ 100 mls/hr 09/10/25 00:00 09/10/25 00:34 Flagyl 500 Mg/Iso Soln 100 Ml IVPB Infused Q8H DAI Infusion Morphine Sulfate 2 mg 09/09/25 13:29 09/09/25 23:31 Morphine Sulfate (*Crx) 4 Mg/Ml Inj IV PUSH 2 mg Q2H PRN Administration Pain Rated 6 or Greater Ondansetron HCl 4 mg 09/09/25 13:29 Ondansetron Inj 4 Mg/2 Ml Vial IV PUSH Q6H PRN Nausea And Vomiting Tramadol HCl 50 mg 09/09/25 13:29 Tramadol Hcl (*Crx) 50 Mg Tablet PO Q6H PRN Pain Rated 4-6 Triamterene/Hydrochlorothiazide 1 tab 09/09/25 13:29 09/09/25 18:57 Triamterene 37.5 Mg/Hctz 25 Mg (Maxzide) Tablet PO 1 tab DAILY DAI Administration Radiology Results: ITS Impressions Chest X-Ray 09/09/25 20:28 IMPRESSION: 1. Cardiomegaly with pulmonary vascular congestion and patchy airspace opacities in the mid and lower lung zones suggesting pulmonary edema mild degree. No pleural effusion. 2. Subcutaneous emphysema lower chest wall on both sides. Chest CTA 09/10/25 06:39 IMPRESSION: 1. No pulmonary embolus. 2. Diffuse lung disease, consistent with pneumonia and/or pulmonary edema. 3. Small pleural effusions. 4. Gas in the chest wall and left neck. Labs 09/10/25 04:46 09/10/25 04:46 Labs: Laboratory Results - last 24 hr 09/09/25 09/10/25 09/10/25 22:10 00:34 04:46 WBC 16.2 H 14.4 H RBC 3.10 L 2.93 L Hgb 9.4 L D 9.0 L Hct 28.7 L 27.2 L MCV 92.6 92.8 MCH 30.3 30.7 MCHC 32.8 33.1 RDW 12.5 12.5 Plt Count 211 196 MPV 9.3 9.7 Immature Gran % (Auto) 0.5 0.5 Neut % (Auto) 87.2 H 83.1 H Lymph % (Auto) 5.2 L 9.5 L [place] % (Auto) 6.9 6.7 Eos % (Auto) 0.0 0.0 Baso % (Auto) 0.2 0.2 Lymph # (Auto) 0.84 L 1.37 [place] # (Auto) 1.1 H 1.0 H Eos # (Auto) 0.0 0.0 Baso # (Auto) 0.0 0.0 Abs Immat Gran (auto) 0.08 H 0.07 H Absolute Neuts (auto) 14.1 H 12.0 H Absolute Nucleated RBC 0.000 0.000 Nucleated RBC % 0.0 0.0 D-Dimer 4.70 H Sodium 131 L 130 L Potassium 3.8 3.9 Chloride 101 99 Carbon Dioxide 22 25 Anion Gap 8 6 BUN 13 D 14 Creatinine 1.17 H 1.24 H Estim Creat Clear Calc Not Reportable Not Reportable Estimated GFR 45 L 42 L Glucose 156 H 122 H Lactic Acid 2.2 H 1.5 Calcium 8.4 8.4 Magnesium 1.7 Total Bilirubin 0.8 AST 36 ALT 24 Alkaline Phosphatase 95 Troponin I < 0.012 Total Protein 6.2 L Albumin 3.4 L
[2025-09-10] MEDS: metroNIDAZOLE 500 MG/ISO 100ML 500 MG/100 ML BAG 100 MG IVPB ×2 (08:25→15:05)
[2025-09-10] MEDS: DOCUSATE SODIUM 100 MG CAPSULE PO (08:26)
[2025-09-10] MEDS: ATORVASTATIN 40 MG TABLET PO (08:26)
[2025-09-10] MEDS: TRIAMTERENE 37.5 MG/HCTZ 25 MG (MAXZIDE) TABLET 1 TAB PO (08:26)
[2025-09-10] MEDS: ENOXAPARIN 30 MG/0.3 ML SYRINGE SUB-Q (08:26)
[2025-09-10] MEDS: CEPHALEXIN 500 MG CAPSULE PO ×4 (08:28→20:52)
[2025-09-10] MEDS: FUROSEMIDE INJ 40 MG/4 ML VIAL IV PUSH (08:29)
[2025-09-10] MEDS: CITALOPRAM HYDROBROMIDE 20 MG TABLET PO (08:29)
--- NOTE | 2025-09-10 09:01 | PM.IMPN ---
Progress Note: A&P Assessment and Plan (1) Acute hypoxic respiratory failure: Code(s): J96.01 - Acute respiratory failure with hypoxia Status: Acute Assessment and Plan: Patient developed acute hypoxic respiratory failure due to pulmonary edema likely from fluid overload in the setting of 1.5 L of fluid administration during surgery with additional fluids given in the form of antibiotics and complicated by the patient's positioning during the OR as during bladder procedures the patient is in Trendelenburg for a significant amount of time likely causing some component of volume redistribution. - Oxygen supplementation: 2L NC, wean as tolerated to maintain spo2 > 90 - Chest XR: Cardiomegaly with pulmonary vascular congestion and patchy airspace opacities in the mid and lower lung zones suggesting pulmonary edema mild degree. No pleural effusion. Subcutaneous emphysema lower chest wall on both sides. - Chest CTA: No PE, diffuse lung disease consistent with pna or edema and small pleural effusions unlikely pna as leukocytosis likely related to recent operation and improving without intervention and no associated cough - Lasix 40 mg IV daily - Rubio catheter has been placed to monitor strict I&O's, will need to obtain voiding trial prior to discharge SOB improving. Weaned to 2L NC during assessment. Denies associated cough. (2) Acute cardiac pulmonary edema: Code(s): I50.1 - Left ventricular failure, unspecified Status: Acute Assessment and Plan: - Chest XR: Cardiomegaly with pulmonary vascular congestion and patchy airspace opacities in the mid and lower lung zones suggesting pulmonary edema mild degree. No pleural effusion. Subcutaneous emphysema lower chest wall on both sides. - Chest CTA: No PE, diffuse lung disease consistent with pna or edema and small pleural effusions - Lasix 40 mg IV daily - Rubio catheter has been placed to monitor strict I&O's. SOB improving. Weaned to 2L NC during assessment. Denies associated cough. (3) Acute lactic acidosis: Code(s): E87.21 - Acute metabolic acidosis Status: Acute Assessment and Plan: Lactic acid 2.2 likely due to her acute hypoxic state, repeat 1.5. Resolved. (4) Acute hyponatremia: Code(s): E87.1 - Hypo-osmolality and hyponatremia Status: Acute Assessment and Plan: Na 131 on admission, currently 130. Previously WNL on 08/27 however no further comparison. Etiology possible volume overload given edema on imaging Remains asymptomatic Continue to monitor (5) Acute postoperative anemia due to expected blood loss: Code(s): D62 - Acute posthemorrhagic anemia Status: Acute Assessment and Plan: Hgb 9.4 on 09/09 following operation, remains stable at 9.0 on am labs Continue to monitor No signs of active bleeding (6) S/P bilateral salpingo-oophorectomy: Onset Date: 09/09/25 Code(s): Z90.722 - Acquired absence of ovaries, bilateral; Z90.79 - Acquired absence of other genital organ(s) Status: Acute Assessment and Plan: s/p Robotic so supracervical hysterectomy and bilateral salpingo-oophorectomy on 09/[address] Avis Rosales continue treatment per otolaryngology nurse (7) S/P laparoscopic supracervical hysterectomy: Onset Date: 09/09/25 Code(s): Z90.711 - Acquired absence of uterus with remaining cervical stump Status: Acute Assessment and Plan: s/p Robotic so supracervical hysterectomy and bilateral salpingo-oophorectomy on 09/[address] Avis Rosales continue treatment per otolaryngology nurse (8) Status post sacrocolpopexy: Onset Date: 09/09/25 Code(s): Z98.890 - Other specified postprocedural states Status: Acute Assessment and Plan: s/p Robotic assisted laparoscopic sacral colpopexy with urethral sling on 09/[address] Ornelas Continue treatment as per otolaryngology nurse and urology Time Spent With Patient Time with patient: 25 - 35 minutes Subjective Date/time seen: 09/10/25 09:01 Interval history: 80 year old female with a past medical history of stress urinary incontinence, uterine prolapse, chronic kidney disease stage 3, persistent atrial flutter and essential hypertension who presented to the hospital for a planned hysterectomy and a bladder suspension surgery who postoperatively developed hypoxia. Patient is pleasant lying comfortably in bed. She states that her shortness of breath is improving she denies any associated cough. During assessment was able to wean patient to 2 L nasal cannula stable saturations. She continues to endorse slight discomfort along the surgical incision sites but otherwise no complaints. She denies any chest pain, palpitations nausea/vomiting. Review of Systems Review of Systems: All systems reviewed & are unremarkable except as noted in HPI and below Exam Narrative: AF HR 93 RR 20 SPO2 94 2L NC (baseline RA) BP 90/52 General: female in no acute respiratory distress who is nontoxic appearing, lying semi recumbent in bed. HEENT: Normocephalic. Atraumatic.Extraocular movement intact. Sclera clear and anicteric. No facial asymmetry. Chest: Lungs with rhonchi to auscultation bilaterally. Speaking full sentences. CV: Heart was regular rate and rhythm. Abd: Abdomen was soft. Nontender. Nondistended. Positive bowel sounds. Laparoscopic incisions with mild bruising, remain clean/dry/intact. Ext: No clubbing, cyanosis. Trivial edema. DP pulses bilaterally. Neuro: Patient is alert.Speech is clear. Objective Data Vital Signs Vital Signs: Vital Signs - 24 hr 09/09/25 10:22 09/09/25 10:30 09/09/25 10:45 Temperature 98.2 F Pulse Rate 112 H 110 H 94 Respiratory Rate 14 14 22 H Blood Pressure 99/44 L 104/64 115/67 Pulse Oximetry 95 95 98 Oxygen Delivery Simple Face Mask Simple Face Mask Simple Face Mask Oxygen Flow Rate 12 10 10 09/09/25 11:00 09/09/25 11:13 09/09/25 11:15 Temperature Pulse Rate 101 H 96 Respiratory Rate 11 L 18 Blood Pressure 132/96 H 99/77 L Pulse Oximetry 95 96 92 Oxygen Delivery Simple Face Mask Nasal Cannula Nasal Cannula Oxygen Flow Rate 10 4 6 09/09/25 11:25 09/09/25 11:30 09/09/25 11:45 Temperature Pulse Rate 105 H 98 Respiratory Rate 18 18 Blood Pressure 104/59 L 98/71 L Pulse Oximetry 96 93 93 Oxygen Delivery Nasal Cannula Nasal Cannula Nasal Cannula Oxygen Flow Rate 5 4 4 09/09/25 12:00 09/09/25 12:07 09/09/25 12:15 Temperature 97.4 F L Pulse Rate 97 110 H Respiratory Rate 18 18 Blood Pressure 96/67 L 104/62 Pulse Oximetry 93 93 93 Oxygen Delivery Nasal Cannula Nasal Cannula Nasal Cannula Oxygen Flow Rate 4 3 3 09/09/25 12:30 09/09/25 12:45 09/09/25 13:00 Temperature Pulse Rate 101 H 99 98 Respiratory Rate 18 16 18 Blood Pressure 110/82 108/79 103/71 Pulse Oximetry 93 94 92 Oxygen Delivery Nasal Cannula Nasal Cannula Nasal Cannula Oxygen Flow Rate 3 3 3 09/09/25 13:15 09/09/25 13:23 09/09/25 13:45 Temperature 99 F Pulse Rate 98 109 H 96 Respiratory Rate 18 18 16 Blood Pressure 109/69 109/76 107/63 Pulse Oximetry 92 94 92 Oxygen Delivery Nasal Cannula Nasal Cannula Oxygen Flow Rate 3 3 09/09/25 14:00 09/09/25 14:44 09/09/25 15:16 Temperature Pulse Rate 85 102 H 98 Respiratory Rate 18 18 18 Blood Pressure Pulse Oximetry 92 92 95 Oxygen Delivery Nasal Cannula Oxygen Flow Rate 4 09/09/25 16:19 09/09/25 18:45 09/09/25 20:35 Temperature 98 F Pulse Rate 91 97 96 Respiratory Rate 16 16 22 H Blood Pressure 114/65 Pulse Oximetry 95 93 91 Oxygen Delivery Nasal Cannula Oxygen Flow Rate 5 09/09/25 20:40 09/09/25 20:50 09/09/25 20:54 Temperature Pulse Rate 83 102 H 83 Respiratory Rate 20 20 20 Blood Pressure Pulse Oximetry 92 Oxygen Delivery Nasal Cannula Oxygen Flow Rate 3 09/09/25 22:57 09/09/25 23:23 09/10/25 00:00 Temperature 97.8 F Pulse Rate 88 81 86 Respiratory Rate 18 Blood Pressure 105/66 Pulse Oximetry 92 Oxygen Delivery Oxygen Flow Rate 09/10/25 04:00 09/10/25 05:44 Temperature 97.7 F Pulse Rate 89 78 Respiratory Rate 20 Blood Pressure 90/52 L Pulse Oximetry 94 Oxygen Delivery Oxygen Flow Rate Intake/Output Intake/Output: Intake & Output 09/07/25 09/08/25 09/09/25 09/10/25 23:59 23:59 23:59 23:59 Intake Total 1950 690 Output Total 750 900 Balance 1200 -210 Meds/Results Medications: Active Medications Generic Name Dose Route Start Last Admin Trade Name Freq PRN Reason Stop Dose Admin Acetaminophen 650 mg 09/09/25 13:29 Acetaminophen 325 Mg Tablet PO Q4H PRN Mild Pain (1-3) or Fever Amlodipine Besylate 5 mg 09/09/25 13:29 09/10/25 08:28 Amlodipine Besylate 5 Mg Tablet PO Not Given DAILY DAI Atorvastatin Calcium 40 mg 09/09/25 13:29 09/10/25 08:26 Atorvastatin 40 Mg Tablet PO 40 mg DAILY [facility] Administration Cephalexin HCl 500 mg 09/10/25 09:00 09/10/25 08:28 Cephalexin 500 Mg Capsule PO 500 mg QID DAI Administration Citalopram Hydrobromide 20 mg 09/09/25 13:29 09/10/25 08:29 Citalopram Hydrobromide 20 Mg Tablet PO 20 mg QAM DAI Administration Docusate Sodium 100 mg 09/09/25 13:29 09/10/25 08:26 Docusate Sodium 100 Mg Capsule PO 100 mg DAILY DAI Administration Enoxaparin Sodium 30 mg 09/10/25 09:00 09/10/25 08:26 Enoxaparin 30 Mg/0.3 Ml Syringe SUB-Q 30 mg DAILY DAI Administration Furosemide 40 mg 09/10/25 09:00 09/10/25 08:29 Furosemide Inj 40 Mg/4 Ml Vial IV PUSH 40 mg DAILY DAI Administration Guaifenesin/Dextromethorphan 5 ml 09/09/25 20:50 09/09/25 22:16 Guaifenesin/Dextromethorphan 10 Ml Udc PO 5 ml Q4H PRN Administration Cough Metronidazole 500 mg in 100 mls @ 100 mls/hr 09/10/25 00:00 09/10/25 08:25 Flagyl 500 Mg/Iso Soln 100 Ml IVPB 100 mls/hr Q8H DAI Administration Morphine Sulfate 2 mg 09/09/25 13:29 09/09/25 23:31 Morphine Sulfate (*Crx) 4 Mg/Ml Inj IV PUSH 2 mg Q2H PRN Administration Pain Rated 6 or Greater Ondansetron HCl 4 mg 09/09/25 13:29 Ondansetron Inj 4 Mg/2 Ml Vial IV PUSH Q6H PRN Nausea And Vomiting Tramadol HCl 50 mg 09/09/25 13:29 Tramadol Hcl (*Crx) 50 Mg Tablet PO Q6H PRN Pain Rated 4-6 Triamterene/Hydrochlorothiazide 1 tab 09/09/25 13:29 09/10/25 08:26 Triamterene 37.5 Mg/Hctz 25 Mg (Maxzide) Tablet PO 1 tab DAILY DAI Administration Radiology Results: ITS Impressions Chest X-Ray 09/09/25 20:28 IMPRESSION: 1. Cardiomegaly with pulmonary vascular congestion and patchy airspace opacities in the mid and lower lung zones suggesting pulmonary edema mild degree. No pleural effusion. 2. Subcutaneous emphysema lower chest wall on both sides. Chest CTA 09/10/25 06:39 IMPRESSION: 1. No pulmonary embolus. 2. Diffuse lung disease, consistent with pneumonia and/or pulmonary edema. 3. Small pleural effusions. 4. Gas in the chest wall and left neck. Labs Labs: Laboratory Results - last 24 hr 09/09/25 09/10/25 09/10/25 22:10 00:34 04:46 WBC 16.2 H 14.4 H RBC 3.10 L 2.93 L Hgb 9.4 L D 9.0 L Hct 28.7 L 27.2 L MCV 92.6 92.8 MCH 30.3 30.7 MCHC 32.8 33.1 RDW 12.5 12.5 Plt Count 211 196 MPV 9.3 9.7 Immature Gran % (Auto) 0.5 0.5 Neut % (Auto) 87.2 H 83.1 H Lymph % (Auto) 5.2 L 9.5 L [place] % (Auto) 6.9 6.7 Eos % (Auto) 0.0 0.0 Baso % (Auto) 0.2 0.2 Lymph # (Auto) 0.84 L 1.37 Crisp # (Auto) 1.1 H 1.0 H Eos # (Auto) 0.0 0.0 Baso # (Auto) 0.0 0.0 Abs Immat Gran (auto) 0.08 H 0.07 H Absolute Neuts (auto) 14.1 H 12.0 H Absolute Nucleated RBC 0.000 0.000 Nucleated RBC % 0.0 0.0 D-Dimer 4.70 H Sodium 131 L 130 L Potassium 3.8 3.9 Chloride 101 99 Carbon Dioxide 22 25 Anion Gap 8 6 BUN 13 D 14 Creatinine 1.17 H 1.24 H Estim Creat Clear Calc Not Reportable Not Reportable Estimated GFR 45 L 42 L Glucose 156 H 122 H Lactic Acid 2.2 H 1.5 Calcium 8.4 8.4 Magnesium 1.7 Total Bilirubin 0.8 AST 36 ALT 24 Alkaline Phosphatase 95 Troponin I < 0.012 Total Protein 6.2 L Albumin 3.4 L Quality VTE Prophylaxis VTE prophylaxis: mechanical ordered (SCDs) and pharmacologic ordered (Lovenox)
[2025-09-10] MEDS: traMADol HCL (*CRX) 50 MG TABLET PO ×2 (12:28→20:49)
[2025-09-10] MEDS: ONDANSETRON INJ 4 MG/2 ML VIAL IV PUSH (12:28)
[2025-09-10] MEDS: MORPHINE SULFATE (*CRX) 4 MG/ML INJ 2 MG IV PUSH (14:10)
--- NOTE | 2025-09-10 14:24 | P.PNAN_ITS ---
Anes - Prog Note Post-Op Date/Time: 09/10/25 14:24 Cardiovascular status: normal Respiratory status: normal Airway patency: baseline Mental status: baseline Post-Op hydration status: normal Vital Signs: Last Vital Signs Temp 37.4 C 09/10/25 14:02 Pulse 92 09/10/25 14:02 Resp 19 09/10/25 14:02 BP 102/58 L 09/10/25 14:02 Pulse Ox 91 09/10/25 14:02 O2 Del Method Nasal Cannula 09/10/25 11:25 O2 Flow Rate 2 09/10/25 11:25 Pain Score (VAS): 4 I/O: Intake & Output 09/09/25 09/10/25 09/10/25 23:59 07:59 15:59 Intake Total 300 450 340 Output Total 738 937 7572 Balance -400 450 -1060 Laboratory Tests 09/10/25 04:46 09/10/25 04:46 09/09/25 09/10/25 09/10/25 22:10 00:34 04:46 WBC 16.2 H 14.4 H RBC 3.10 L 2.93 L Hgb 9.4 L D 9.0 L Hct 28.7 L 27.2 L MCV 92.6 92.8 MCH 30.3 30.7 MCHC 32.8 33.1 RDW 12.5 12.5 Plt Count 211 196 MPV 9.3 9.7 Immature Gran % (Auto) 0.5 0.5 Neut % (Auto) 87.2 H 83.1 H Lymph % (Auto) 5.2 L 9.5 L [place] % (Auto) 6.9 6.7 Eos % (Auto) 0.0 0.0 Baso % (Auto) 0.2 0.2 Lymph # (Auto) 0.84 L 1.37 [place] # (Auto) 1.1 H 1.0 H Eos # (Auto) 0.0 0.0 Baso # (Auto) 0.0 0.0 Abs Immat Gran (auto) 0.08 H 0.07 H Absolute Neuts (auto) 14.1 H 12.0 H Absolute Nucleated RBC 0.000 0.000 Nucleated RBC % 0.0 0.0 D-Dimer 4.70 H Sodium 131 L 130 L Potassium 3.8 3.9 Chloride 101 99 Carbon Dioxide 22 25 Anion Gap 8 6 BUN 13 D 14 Creatinine 1.17 H 1.24 H Estim Creat Clear Calc Not Reportable Not Reportable Estimated GFR 45 L 42 L Glucose 156 H 122 H Lactic Acid 2.2 H 1.5 Calcium 8.4 8.4 Magnesium 1.7 Total Bilirubin 0.8 AST 36 ALT 24 Alkaline Phosphatase 95 Troponin I < 0.012 Total Protein 6.2 L Albumin 3.4 L Post-procedural complaints: none Patient Feedback: Patient satisfied with anesthetic care.
[2025-09-11] VITALS (10 sets, daily range): BP systolic 98–110; BP diastolic 55–72; PULSE 63–118; RESP 18–20; TEMP 36.1–36.6; O2SAT 92–97
[2025-09-11] MEDS: metroNIDAZOLE 500 MG/ISO 100ML 500 MG/100 ML BAG 100 MG IVPB ×3 (04:00→20:04)
--- NOTE | 2025-09-11 06:45 | PM.DS ---
DS: Admitting Diagnosis Discharge Date 09/11/2025 Admitting Diagnosis Uterine prolapse stress urinary incontinence DS: Discharge Diagnosis Discharge Diagnosis (1) Status post sacrocolpopexy: Onset Date: 09/09/25 Code(s): Z98.890 - Other specified postprocedural states Status: Acute (2) VASQUEZ (stress urinary incontinence, female): Code(s): N39.3 - Stress incontinence (female) (male) Status: Acute (3) Uterine prolapse: Code(s): N81.4 - Uterovaginal prolapse, unspecified Status: Acute (4) S/P laparoscopic supracervical hysterectomy: Onset Date: 09/09/25 Code(s): Z90.711 - Acquired absence of uterus with remaining cervical stump Status: Acute (5) S/P bilateral salpingo-oophorectomy: Onset Date: 09/09/25 Code(s): Z90.722 - Acquired absence of ovaries, bilateral; Z90.79 - Acquired absence of other genital organ(s) Status: Acute (6) CKD (chronic kidney disease): Code(s): N18.9 - Chronic kidney disease, unspecified Status: Acute (7) Acute hypoxic respiratory failure: Code(s): J96.01 - Acute respiratory failure with hypoxia Status: Acute DS: Summary Hospital Course Reason for hospitalization: Patient underwent robotic supracervical hysterectomy bilateral salpingo-oophorectomy sacral colpopexy and sling on 09/09/2020 post Hospital Course: Her postop care was complicated she was sent the floor on underwent serial chest x-ray and CT which showed no pulmonary embolism Lasix was given and she progressively improved her breathing was able to be discharged home she is to follow-up 2 weeks time Time Spent with Patient Time attestation: Total time spent providing and/or coordinating discharge services: Exam Narrative: AF HR 93 RR 20 SPO2 94 2L NC (baseline RA) BP 90/52 General: female in no acute respiratory distress who is nontoxic appearing, lying semi recumbent in bed. HEENT: Normocephalic. Atraumatic.Extraocular movement intact. Sclera clear and anicteric. No facial asymmetry. Chest: Lungs with rhonchi to auscultation bilaterally. Speaking full sentences. CV: Heart was regular rate and rhythm. Abd: Abdomen was soft. Nontender. Nondistended. Positive bowel sounds. Laparoscopic incisions with mild bruising, remain clean/dry/intact. Ext: No clubbing, cyanosis. Trivial edema. DP pulses bilaterally. Neuro: Patient is alert.Speech is clear. DS: Data Data Completed and Pending Completed studies during hospitalization: Pending at discharge 09/09/25 08:31 Surgical [PTH] Routine Discharge Plan Discharge Attending physician on discharge: Willy Mccullough Consulting providers: Trudi Hall; Maryjane Douglas; Annie Lopez Discharging Clinician: Willy Mccullough Patient Disposition: Home Activity: may shower, no straining and pelvic rest Diet: heart healthy Wound Care Instructions: follow printed instructions Discharge Instructions: No lifting >20lb, exercise for 6 weeks No tub bath or pool for 2 weeks No intercourse 6 weeks Please note, sodium went down just a bit. Please make sure you add nutritional supplements to your diet and i will send a lab order for recheck. Patient Language: Portuguese Stand Alone Forms: General Discharge Instructions Follow-up/Referrals: Pb Ornelas MD [Physician, Urology] Referral Note: 6 weeks as scheduled Discharge Medications: New docusate sodium [Colace] 100 mg capsule 100 mg PO BID Qty: 40 0RF tramadol 50 mg tablet 50 mg PO Q6H PRN (Reason: pain) Qty: 20 0RF Continued atorvastatin 40 mg tablet 40 mg PO DAILY amlodipine 5 mg tablet 5 mg PO DAILY Patient Comments: QAM triamterene-hydrochlorothiazid 37.5-25 mg tablet 1 tablet PO DAILY Patient Comments: QAM cholecalciferol (vitamin D3) [Vitamin D3] 50 mcg (2,000 unit) tablet 50 mcg PO DAILY citalopram 20 mg tablet 20 mg PO QAM Held Eliquis 2.5 mg tablet 2.5 mg PO BID Qty: 60 5RF Hold Instructions: Resume on 09/11/25. Other Ambulatory Orders: Comprehensive Metabolic Panel (Routine) Timeframe: 1 Week Location: Determined by Patient Ordered By: Emily Mejia Date of admission: 09/10/25 08:40 Primary Care Provider: Eduardo,Mendez Bravo Admitting Provider: Pb Ornelas Attending physician on admission: Pb Ornelas Condition: Stable
--- NOTE | 2025-09-11 07:21 | PM.GYNPNOP ---
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 Assessment and plan (1) Uterine prolapse: Code(s): N81.4 - Uterovaginal prolapse, unspecified Status: Acute (2) VASQUEZ (stress urinary incontinence, female): Code(s): N39.3 - Stress incontinence (female) (male) Status: Acute (3) Status post sacrocolpopexy: Onset Date: 09/09/25 Code(s): Z98.890 - Other specified postprocedural states Status: Acute (4) S/P laparoscopic supracervical hysterectomy: Onset Date: 09/09/25 Code(s): Z90.711 - Acquired absence of uterus with remaining cervical stump Status: Acute (5) S/P bilateral salpingo-oophorectomy: Onset Date: 09/09/25 Code(s): Z90.722 - Acquired absence of ovaries, bilateral; Z90.79 - Acquired absence of other genital organ(s) Status: Acute (6) CKD (chronic kidney disease): Code(s): N18.9 - Chronic kidney disease, unspecified Status: Acute (7) Acute hypoxic respiratory failure: Code(s): J96.01 - Acute respiratory failure with hypoxia Status: Acute Plan Wean O2 removed Rubio catheter. Home this afternoon if stable with follow-up in 2 weeks Postoperative Procedures: Procedures Operation Date: 09/09/25 07:30 Actual Procedure Side Surgeon p Robotic Sacrocolpopexy, Urethral Sling, Cystoscopy Not Applicable Pb Ornelas MD s Robotic Assisted Supracervical Hysterectomy with Bilateral Salpingo-oophorectomy Bilateral Willy Rosales MD Time Spent With Patient Time: Total time spent is greater than 50% in coordination of care (as documented) at patient's floor/unit and/or counseling patient: Time with patient: 15 - 25 minutes RELIGIOUS EDUCATION TEACHER- PN:[facility] Post-Op Subjective Date/time seen: 09/11/25 07:21 Interval history: 80 year old female with a past medical history of stress urinary incontinence, uterine prolapse, chronic kidney disease stage 3, persistent atrial flutter and essential hypertension who presented to the hospital for a planned hysterectomy and a bladder suspension surgery who postoperatively developed hypoxia. Patient is pleasant lying comfortably in bed. She states that her shortness of breath is improving she denies any associated cough. During assessment was able to wean patient to 2 L nasal cannula stable saturations. She continues to endorse slight discomfort along the surgical incision sites but otherwise no complaints. She denies any chest pain, palpitations nausea/vomiting. Review of Systems Review of Systems: All systems reviewed & are unremarkable except as noted in HPI and below Exam Narrative: AF HR 93 RR 20 SPO2 94 2L NC (baseline RA) BP 90/52 General: female in no acute respiratory distress who is nontoxic appearing, lying semi recumbent in bed. HEENT: Normocephalic. Atraumatic.Extraocular movement intact. Sclera clear and anicteric. No facial asymmetry. Chest: Lungs with rhonchi to auscultation bilaterally. Speaking full sentences. CV: Heart was regular rate and rhythm. Abd: Abdomen was soft. Nontender. Nondistended. Positive bowel sounds. Laparoscopic incisions with mild bruising, remain clean/dry/intact. Ext: No clubbing, cyanosis. Trivial edema. DP pulses bilaterally. Neuro: Patient is alert.Speech is clear. RELIGIOUS EDUCATION TEACHER - PN: Obj Data Vital Signs Vital Signs: Vital Signs - 24 hr 09/10/25 08:01 09/10/25 08:29 09/10/25 11:20 Temperature Pulse Rate 90 89 Respiratory Rate 20 Blood Pressure Pulse Oximetry 94 94 Oxygen Delivery Nasal Cannula Nasal Cannula Oxygen Flow Rate 5 2 09/10/25 11:25 09/10/25 12:03 09/10/25 14:02 Temperature 99.3 F Pulse Rate 80 93 92 Respiratory Rate 20 19 Blood Pressure 102/58 L Pulse Oximetry 94 91 Oxygen Delivery Nasal Cannula Oxygen Flow Rate 2 09/10/25 16:02 09/10/25 20:00 09/10/25 20:10 Temperature 98.6 F Pulse Rate 89 92 Respiratory Rate 20 Blood Pressure 102/70 Pulse Oximetry 93 90 Oxygen Delivery Nasal Cannula Oxygen Flow Rate 2 09/11/25 04:45 Temperature 97.6 F Pulse Rate 99 Respiratory Rate 20 Blood Pressure 110/72 Pulse Oximetry 93 Oxygen Delivery Oxygen Flow Rate Intake/Output Intake/Output: Intake & Output 09/08/25 09/09/25 09/10/25 09/11/25 23:59 23:59 23:59 23:59 Intake Total 1950 1550 400 Output Total 750 3400 800 Balance 1200 -1850 -400 Meds/Results Medications: Active Medications Generic Name Dose Route Start Last Admin Trade Name Freq PRN Reason Stop Dose Admin Acetaminophen 650 mg 09/09/25 13:29 Acetaminophen 325 Mg Tablet PO Q4H PRN Mild Pain (1-3) or Fever Amlodipine Besylate 5 mg 09/09/25 13:29 09/10/25 08:28 Amlodipine Besylate 5 Mg Tablet PO Not Given DAILY [facility] Atorvastatin Calcium 40 mg 09/09/25 13:29 09/10/25 08:26 Atorvastatin 40 Mg Tablet PO 40 mg DAILY [facility] Administration Cephalexin HCl 500 mg 09/10/25 09:00 09/10/25 20:52 Cephalexin 500 Mg Capsule PO 500 mg QID DAI Administration Citalopram Hydrobromide 20 mg 09/09/25 13:09/10/25 08:29 Citalopram Hydrobromide 20 Mg Tablet PO 20 mg QAM [facility] Administration Docusate Sodium 100 mg 09/09/25 13:29 09/10/25 08:26 Docusate Sodium 100 Mg Capsule PO 100 mg DAILY [facility] Administration Enoxaparin Sodium 30 mg 09/10/25 09:00 09/10/25 08:26 Enoxaparin 30 Mg/0.3 Ml Syringe SUB-Q 30 mg DAILY [facility] Administration Furosemide 40 mg 09/10/25 09:00 09/10/25 08:29 Furosemide Inj 40 Mg/4 Ml Vial IV PUSH 40 mg DAILY [facility] Administration Guaifenesin/Dextromethorphan 5 ml 09/09/25 20:50 09/09/25 22:16 Guaifenesin/Dextromethorphan 10 Ml Udc PO 5 ml Q4H PRN Administration Cough Metronidazole 500 mg in 100 mls @ 100 mls/hr 09/11/25 12:00 Flagyl 500 Mg/Iso Soln 100 Ml IVPB Q8H [facility] Morphine Sulfate 2 mg 09/09/25 13:29 09/10/25 14:10 Morphine Sulfate (*Crx) 4 Mg/Ml Inj IV PUSH 2 mg Q2H PRN Administration Pain Rated 6 or Greater Ondansetron HCl 4 mg 09/09/25 13:29 09/10/25 12:28 Ondansetron Inj 4 Mg/2 Ml Vial IV PUSH 4 mg Q6H PRN Administration Nausea And Vomiting Tramadol HCl 50 mg 09/09/25 13:29 09/10/25 20:49 Tramadol Hcl (*Crx) 50 Mg Tablet PO 50 mg Q6H PRN Administration Pain Rated 4-6 Triamterene/Hydrochlorothiazide 1 tab 09/09/25 13:29 09/10/25 08:26 Triamterene 37.5 Mg/Hctz 25 Mg (Maxzide) Tablet PO 1 tab DAILY DAI Administration Radiology Results: ITS Impressions Chest X-Ray 09/09/25 20:28 IMPRESSION: 1. Cardiomegaly with pulmonary vascular congestion and patchy airspace opacities in the mid and lower lung zones suggesting pulmonary edema mild degree. No pleural effusion. 2. Subcutaneous emphysema lower chest wall on both sides. Chest CTA 09/10/25 06:39 IMPRESSION: 1. No pulmonary embolus. 2. Diffuse lung disease, consistent with pneumonia and/or pulmonary edema. 3. Small pleural effusions. 4. Gas in the chest wall and left neck. Labs 09/10/25 04:46 09/10/25 04:46
[2025-09-11] MEDS: FUROSEMIDE INJ 40 MG/4 ML VIAL IV PUSH (08:31)
[2025-09-11] MEDS: CITALOPRAM HYDROBROMIDE 20 MG TABLET PO (08:32)
[2025-09-11] MEDS: CEPHALEXIN 500 MG CAPSULE PO ×4 (08:32→20:04)
[2025-09-11] MEDS: ATORVASTATIN 40 MG TABLET PO (08:32)
[2025-09-11] MEDS: TRIAMTERENE 37.5 MG/HCTZ 25 MG (MAXZIDE) TABLET 1 TAB PO (08:32)
[2025-09-11] MEDS: DOCUSATE SODIUM 100 MG CAPSULE PO (08:32)
[2025-09-11] MEDS: ENOXAPARIN 30 MG/0.3 ML SYRINGE SUB-Q (08:33)
--- NOTE | 2025-09-11 10:39 | P.PNIM_ITS ---
Progress Note: A&P Assessment and Plan (1) Acute hypoxic respiratory failure: Code(s): J96.01 - Acute respiratory failure with hypoxia Status: Acute Assessment and Plan: Patient developed acute hypoxic respiratory failure due to pulmonary edema likely from fluid overload in the setting of 1.5 L of fluid administration during surgery with additional fluids given in the form of antibiotics and complicated by the patient's positioning during the OR as during bladder procedures the patient is in Trendelenburg for a significant amount of time likely causing some component of volume redistribution. - Oxygen supplementation: 2L NC, wean as tolerated to maintain spo2 > 90 - Chest XR: Cardiomegaly with pulmonary vascular congestion and patchy airspace opacities in the mid and lower lung zones suggesting pulmonary edema mild degree. No pleural effusion. Subcutaneous emphysema lower chest wall on both sides. - Chest CTA: No PE, diffuse lung disease consistent with pna or edema and small pleural effusions unlikely pna as leukocytosis likely related to recent operation and improving without intervention and no associated cough - Lasix 40 mg IV daily - Rubio catheter has been placed to monitor strict I&O's, will need to obtain voiding trial prior to discharge SOB improving. Weaned to 2L NC during assessment. Denies associated cough. 09/11 - weaned of to RA now wbc trending down-16.2->14.4 (2) Acute cardiac pulmonary edema: Code(s): I50.1 - Left ventricular failure, unspecified Status: Acute Assessment and Plan: - Chest XR: Cardiomegaly with pulmonary vascular congestion and patchy airspace opacities in the mid and lower lung zones suggesting pulmonary edema mild degree. No pleural effusion. Subcutaneous emphysema lower chest wall on both sides. - Chest CTA: No PE, diffuse lung disease consistent with pna or edema and small pleural effusions - Lasix 40 mg IV daily - Rubio catheter has been placed to monitor strict I&O's. SOB improving. Weaned to 2L NC during assessment. Denies associated cough. (3) Acute lactic acidosis: Code(s): E87.21 - Acute metabolic acidosis Status: Acute Assessment and Plan: Lactic acid 2.2 likely due to her acute hypoxic state, repeat 1.5. Resolved. (4) Acute hyponatremia: Code(s): E87.1 - Hypo-osmolality and hyponatremia Status: Acute Assessment and Plan: Na 131 on admission, currently 130. Previously WNL on 08/27 however no further comparison. Etiology possible volume overload given edema on imaging Remains asymptomatic Continue to monitor remains [id number]', asymptomatic will need a f/u as an outpt to repeat to ensure improvement (5) Acute postoperative anemia due to expected blood loss: Code(s): D62 - Acute posthemorrhagic anemia Status: Acute Assessment and Plan: Hgb 9.4 on 09/09 following operation, remains stable at 9.0 on am labs Continue to monitor No signs of active bleeding (6) S/P bilateral salpingo-oophorectomy: Onset Date: 09/09/25 Code(s): Z90.722 - Acquired absence of ovaries, bilateral; Z90.79 - Acquired absence of other genital organ(s) Status: Acute Assessment and Plan: s/p Robotic so supracervical hysterectomy and bilateral salpingo-oophorectomy on 09/[address] Avis Rosales continue treatment per straddle buggy operator (7) S/P laparoscopic supracervical hysterectomy: Onset Date: 09/09/25 Code(s): Z90.711 - Acquired absence of uterus with remaining cervical stump Status: Acute Assessment and Plan: s/p Robotic so supracervical hysterectomy and bilateral salpingo-oophorectomy on 09/[address] Avis Rosales continue treatment per straddle buggy operator (8) Status post sacrocolpopexy: Onset Date: 09/09/25 Code(s): Z98.890 - Other specified postprocedural states Status: Acute Assessment and Plan: s/p Robotic assisted laparoscopic sacral colpopexy with urethral sling on 09/[address] Ornelas Continue treatment as per straddle buggy operator and urology Time Spent With Patient Time with patient: 25 - 35 minutes Subjective Date/time seen: 09/11/25 10:39 Interval history: 80 year old female with a past medical history of stress urinary incontinence, uterine prolapse, chronic kidney disease stage 3, persistent atrial flutter and essential hypertension who presented to the hospital for a planned hysterectomy and a bladder suspension surgery who postoperatively developed hypoxia. Patient is pleasant, d/c home today per primary team. Her sob better, she is on RA now. She continues to endorse slight discomfort along the surgical incision sites but otherwise no complaints. She denies any chest pain, palpitations nausea/vomiting. Review of Systems Review of Systems: 12 systems were reviewed with pertinent positives and negatives per HPI. Except as documented in the HPI, all other systems were reviewed and are negative. All systems reviewed & are unremarkable except as noted in HPI and below Exam Narrative: General: female in no acute respiratory distress who is nontoxic appearing, lying semi recumbent in bed. HEENT: Normocephalic. Atraumatic.Extraocular movement intact. Sclera clear and anicteric. No facial asymmetry. Chest: Lungs with rhonchi to auscultation bilaterally. Speaking full sentences. CV: Heart was regular rate and rhythm. Abd: Abdomen was soft. Nontender. Nondistended. Positive bowel sounds. Laparosco pic incisions with mild bruising, remain clean/dry/intact. Ext: No clubbing, cyanosis. Trivial edema. DP pulses bilaterally. Neuro: Patient is alert.Speech is clear. Const: Other: Mildly ill-appearing, appears younger than stated age, lying in bed with head of bed at 20? HENMT: Other: Mucous membranes are tacky, no oral pharyngeal erythema Eyes: Other: Pupils are equal and reactive, no scleral icterus, no conjunctival pallor Neck: Other: No JVD, no lymphadenopathy Resp: Other: Bilateral crackles throughout, no tachypnea, no accessory muscle use Cardio: Other: Regular rate, regular rhythm, 2+ bilateral radial pedal pulses, no JVD GI: Other: Slightly distended, expected tenderness episode of with postoperative state, positive bowel sounds : Other: Rubio catheter in place with pale yellow urine about 500 mL Skin: Other: Mild pallor, non jaundice, cool to touch, no mottling Neuro: Other: Alert orient x4, speech is clear, no facial asymmetry, no localizing neurologic deficits noted during the course of conversation Extrem: Other: No clubbing, cyanosis or edema, varicose veins noted to the lower extremities but most notably to the left upper thigh Psych: Other: Appropriate mood and affect, pleasant and cooperative, judgment and insight intact Objective Data Vital Signs Vital Signs: Vital Signs - 24 hr 09/10/25 11:20 09/10/25 11:09/10/25 12:03 Temperature Pulse Rate 89 80 93 Respiratory Rate 20 Blood Pressure Pulse Oximetry 94 94 Oxygen Delivery Nasal Cannula Nasal Cannula Oxygen Flow Rate 2 2 09/10/25 14:02 09/10/25 16:02 09/10/25 20:00 Temperature 99.3 F Pulse Rate 92 89 Respiratory Rate 19 Blood Pressure 102/58 L Pulse Oximetry 91 93 Oxygen Delivery Nasal Cannula Oxygen Flow Rate 2 09/10/25 20:00 09/10/25 20:10 09/11/25 00:00 Temperature 98.6 F Pulse Rate 98 92 97 Respiratory Rate 20 Blood Pressure 102/70 Pulse Oximetry 90 Oxygen Delivery Oxygen Flow Rate 09/11/25 04:00 09/11/25 04:45 09/11/25 08:49 Temperature 97.6 F Pulse Rate 91 99 Respiratory Rate 20 Blood Pressure 110/72 Pulse Oximetry 93 97 Oxygen Delivery Room Air Oxygen Flow Rate Intake/Output Intake/Output: Intake & Output 09/08/25 09/09/25 09/10/25 09/11/25 23:59 23:59 23:59 23:59 Intake Total 1950 1550 520 Output Total 750 3400 1200 Balance 1200 -7970 -337 Meds/Results Medications: Active Medications Generic Name Dose Route Start Last Admin Trade Name Freq PRN Reason Stop Dose Admin Acetaminophen 650 mg 09/09/25 13:29 Acetaminophen 325 Mg Tablet PO Q4H PRN Mild Pain (1-3) or Fever Amlodipine Besylate 5 mg 09/09/25 13:29 09/10/25 08:28 Amlodipine Besylate 5 Mg Tablet PO Not Given DAILY [facility] Atorvastatin Calcium 40 mg 09/09/25 13:29 09/11/25 08:32 Atorvastatin 40 Mg Tablet PO 40 mg DAILY [facility]I Administration Cephalexin HCl 500 mg 09/10/25 09:00 09/11/25 08:32 Cephalexin 500 Mg Capsule PO 500 mg QID DAI Administration Citalopram Hydrobromide 20 mg 09/09/25 13:29 09/11/25 08:32 Citalopram Hydrobromide 20 Mg Tablet PO 20 mg QAM DAI Administration Docusate Sodium 100 mg 09/09/25 13:29 09/11/25 08:32 Docusate Sodium 100 Mg Capsule PO 100 mg DAILY [facility] Administration Enoxaparin Sodium 30 mg 09/10/25 09:00 09/11/25 08:33 Enoxaparin 30 Mg/0.3 Ml Syringe SUB-Q 30 mg DAILY [facility] Administration Furosemide 40 mg 09/10/25 09:00 09/11/25 08:31 Furosemide Inj 40 Mg/4 Ml Vial IV PUSH 40 mg DAILY [facility] Administration Guaifenesin/Dextromethorphan 5 ml 09/09/25 20:50 09/09/25 22:16 Guaifenesin/Dextromethorphan 10 Ml Udc PO 5 ml Q4H PRN Administration Cough Metronidazole 500 mg in 100 mls @ 100 mls/hr 09/11/25 12:00 Flagyl 500 Mg/Iso Soln 100 Ml IVPB Q8H DAI Morphine Sulfate 2 mg 09/09/25 13:29 09/10/25 14:10 Morphine Sulfate (*Crx) 4 Mg/Ml Inj IV PUSH 2 mg Q2H PRN Administration Pain Rated 6 or Greater Ondansetron HCl 4 mg 09/09/25 13:29 09/10/25 12:28 Ondansetron Inj 4 Mg/2 Ml Vial IV PUSH 4 mg Q6H PRN Administration Nausea And Vomiting Tramadol HCl 50 mg 09/09/25 13:29 09/10/25 20:49 Tramadol Hcl (*Crx) 50 Mg Tablet PO 50 mg Q6H PRN Administration Pain Rated 4-6 Triamterene/Hydrochlorothiazide 1 tab 09/09/25 13:29 09/11/25 08:32 Triamterene 37.5 Mg/Hctz 25 Mg (Maxzide) Tablet PO 1 tab DAILY DAI Administration Radiology Results: ITS Impressions Chest X-Ray 09/09/25 20:28 IMPRESSION: 1. Cardiomegaly with pulmonary vascular congestion and patchy airspace opacities in the mid and lower lung zones suggesting pulmonary edema mild degree. No pleural effusion. 2. Subcutaneous emphysema lower chest wall on both sides. Chest CTA 09/10/25 06:39 IMPRESSION: 1. No pulmonary embolus. 2. Diffuse lung disease, consistent with pneumonia and/or pulmonary edema. 3. Small pleural effusions. 4. Gas in the chest wall and left neck. Quality VTE Prophylaxis VTE prophylaxis: mechanical ordered (SCDs) and pharmacologic ordered (Lovenox)
[2025-09-11] MEDS: ACETAMINOPHEN 325 MG TABLET 650 MG PO (12:17)
[2025-09-12] VITALS: PULSE 88
[2025-09-12 04:00] VITALS: PULSE 96
[2025-09-12] MEDS: metroNIDAZOLE 500 MG/ISO 100ML 500 MG/100 ML BAG 100 MG IVPB (04:05)
[2025-09-12 04:11] VITALS: BP 103/53; PULSE 83; RESP 18; TEMP 36.3; O2SAT 93
--- NOTE | 2025-09-12 07:52 | PM.IMPN ---
Progress Note: A&P Assessment and Plan (1) Acute hypoxic respiratory failure: Code(s): J96.01 - Acute respiratory failure with hypoxia Status: Acute Assessment and Plan: Patient developed acute hypoxic respiratory failure due to pulmonary edema likely from fluid overload in the setting of 1.5 L of fluid administration during surgery with additional fluids given in the form of antibiotics and complicated by the patient's positioning during the OR as during bladder procedures the patient is in Trendelenburg for a significant amount of time likely causing some component of volume redistribution. - Oxygen supplementation: 2L NC, wean as tolerated to maintain spo2 > 90 - Chest XR: Cardiomegaly with pulmonary vascular congestion and patchy airspace opacities in the mid and lower lung zones suggesting pulmonary edema mild degree. No pleural effusion. Subcutaneous emphysema lower chest wall on both sides. - Chest CTA: No PE, diffuse lung disease consistent with pna or edema and small pleural effusions unlikely pna as leukocytosis likely related to recent operation and improving without intervention and no associated cough - Lasix 40 mg IV daily - Rubio catheter has been placed to monitor strict I&O's, will need to obtain voiding trial prior to discharge SOB improving. Weaned to 2L NC during assessment. Denies associated cough. 09/11 - weaned of to RA now wbc trending down-16.2->14.4 repeat labs this am - encourage ambulation, IS (2) Acute cardiac pulmonary edema: Code(s): I50.1 - Left ventricular failure, unspecified Status: Acute Assessment and Plan: - Chest XR: Cardiomegaly with pulmonary vascular congestion and patchy airspace opacities in the mid and lower lung zones suggesting pulmonary edema mild degree. No pleural effusion. Subcutaneous emphysema lower chest wall on both sides. - Chest CTA: No PE, diffuse lung disease consistent with pna or edema and small pleural effusions - Lasix 40 mg IV daily - Rubio catheter has been placed to monitor strict I&O's. SOB improving. Weaned to 2L NC during assessment. Denies associated cough. will stop iV lasix but give 40 mg x 1 this am (3) Acute lactic acidosis: Code(s): E87.21 - Acute metabolic acidosis Status: Acute Assessment and Plan: Lactic acid 2.2 likely due to her acute hypoxic state, repeat 1.5. Resolved. (4) Acute hyponatremia: Code(s): E87.1 - Hypo-osmolality and hyponatremia Status: Acute Assessment and Plan: Na 131 on admission, currently 130. Previously WNL on 08/27 however no further comparison. Etiology possible volume overload given edema on imaging Remains asymptomatic Continue to monitor remains ', asymptomatic will need a f/u as an outpt to repeat to ensure improvement (5) Acute postoperative anemia due to expected blood loss: Code(s): D62 - Acute posthemorrhagic anemia Status: Acute Assessment and Plan: Hgb 9.4 on 09/09 following operation, remains stable at 9.0 on am labs Continue to monitor No signs of active bleeding (6) S/P bilateral salpingo-oophorectomy: Onset Date: 09/09/25 Code(s): Z90.722 - Acquired absence of ovaries, bilateral; Z90.79 - Acquired absence of other genital organ(s) Status: Acute Assessment and Plan: s/p Robotic so supracervical hysterectomy and bilateral salpingo-oophorectomy on 09/[address] Avis Rosales continue treatment per water/wastewater project engineer (7) S/P laparoscopic supracervical hysterectomy: Onset Date: 09/09/25 Code(s): Z90.711 - Acquired absence of uterus with remaining cervical stump Status: Acute Assessment and Plan: s/p Robotic so supracervical hysterectomy and bilateral salpingo-oophorectomy on 09/[address] Avis Rosales continue treatment per water/wastewater project engineer (8) Status post sacrocolpopexy: Onset Date: 09/09/25 Code(s): Z98.890 - Other specified postprocedural states Status: Acute Assessment and Plan: s/p Robotic assisted laparoscopic sacral colpopexy with urethral sling on 09/[address] Ornelas Continue treatment as per water/wastewater project engineer and urology Subjective Date/time seen: 09/12/25 07:52 Interval history: 80 year old female with a past medical history of stress urinary incontinence, uterine prolapse, chronic kidney disease stage 3, persistent atrial flutter and essential hypertension who presented to the hospital for a planned hysterectomy and a bladder suspension surgery who postoperatively developed hypoxia. Patient is pleasant, resting in bed. Didnot go home yesterday as was weak and still on oxygen supplementations until later int day, so it was decided to watch her overnight and d/c this am. Her sob better, she is on RA now. She continues to endorse slight discomfort along the surgical incision sites but otherwise no complaints. She denies any chest pain, palpitations nausea/vomiting. Review of Systems Review of Systems: 12 systems were reviewed with pertinent positives and negatives per HPI. Except as documented in the HPI, all other systems were reviewed and are negative. All systems reviewed & are unremarkable except as noted in HPI and below Exam Narrative: General: female in no acute respiratory distress who is nontoxic appearing, lying semi recumbent in bed. HEENT: Normocephalic. Atraumatic.Extraocular movement intact. Sclera clear and anicteric. No facial asymmetry. Chest: Lungs with rhonchi to auscultation bilaterally. Speaking full sentences. CV: Heart was regular rate and rhythm. Abd: Abdomen was soft. Nontender. Nondistended. Positive bowel sounds. Laparoscopic incisions with mild bruising, remain clean/dry/intact. Ext: No clubbing, cyanosis. Trivial edema. DP pulses bilaterally. Neuro: Patient is alert.Speech is clear. Const: Other: Mildly ill-appearing, appears younger than stated age, lying in bed with head of bed at 20? HENMT: Other: Mucous membranes are tacky, no oral pharyngeal erythema Eyes: Other: Pupils are equal and reactive, no scleral icterus, no conjunctival pallor Neck: Other: No JVD, no lymphadenopathy Resp: Other: Bilateral crackles throughout, no tachypnea, no accessory muscle use Cardio: Other: Regular rate, regular rhythm, 2+ bilateral radial pedal pulses, no JVD GI: Other: Slightly distended, expected tenderness episode of with postoperative state, positive bowel sounds : Other: Rubio catheter in place with pale yellow urine about 500 mL Skin: Other: Mild pallor, non jaundice, cool to touch, no mottling Neuro: Other: Alert orient x4, speech is clear, no facial asymmetry, no localizing neurologic deficits noted during the course of conversation Extrem: Other: No clubbing, cyanosis or edema, varicose veins noted to the lower extremities but most notably to the left upper thigh Psych: Other: Appropriate mood and affect, pleasant and cooperative, judgment and insight intact Objective Data Vital Signs Vital Signs: Vital Signs - 24 hr 09/11/25 08:00 09/11/25 08:49 09/11/25 12:00 Temperature Pulse Rate 108 H 118 H Respiratory Rate Blood Pressure Pulse Oximetry 97 Oxygen Delivery Room Air 09/11/25 14:00 09/11/25 16:00 09/11/25 20:00 Temperature 97.8 F Pulse Rate 97 92 Respiratory Rate 18 Blood Pressure 107/68 Pulse Oximetry 92 Oxygen Delivery Room Air 09/11/25 20:00 09/11/25 20:37 09/12/25 00:00 Temperature 97.0 F L Pulse Rate 87 63 88 Respiratory Rate 18 Blood Pressure 98/55 L Pulse Oximetry 92 Oxygen Delivery 09/12/25 04:00 09/12/25 04:11 Temperature 97.4 F L Pulse Rate 96 83 Respiratory Rate 18 Blood Pressure 103/53 L Pulse Oximetry 93 Oxygen Delivery Intake/Output Intake/Output: Intake & Output 09/09/25 09/10/25 09/11/25 09/12/25 23:59 23:59 23:59 23:59 Intake Total 1950 1550 1320 400 Output Total 750 3400 1900 550 Balance 1200 -1850 -580 -150 Meds/Results Medications: Active Medications Generic Name Dose Route Start Last Admin Trade Name Freq PRN Reason Stop Dose Admin Acetaminophen 650 mg 09/09/25 13:29 09/11/25 12:17 Acetaminophen 325 Mg Tablet PO 650 mg Q4H PRN Administration Mild Pain (1-3) or Fever Amlodipine Besylate 5 mg 09/09/25 13:29 09/11/25 11:00 Amlodipine Besylate 5 Mg Tablet PO Not Given DAILY DAI Atorvastatin Calcium 40 mg 09/09/25 13:29 09/11/25 08:32 Atorvastatin 40 Mg Tablet PO 40 mg DAILY DAI Administration Cephalexin HCl 500 mg 09/10/25 09:00 09/11/25 20:04 Cephalexin 500 Mg Capsule PO 500 mg QID DAI Administration Citalopram Hydrobromide 20 mg 09/09/25 13:29 09/11/25 08:32 Citalopram Hydrobromide 20 Mg Tablet PO 20 mg QAM DAI Administration Docusate Sodium 100 mg 09/09/25 13:29 09/11/25 08:32 Docusate Sodium 100 Mg Capsule PO 100 mg DAILY DAI Administration Enoxaparin Sodium 30 mg 09/10/25 09:00 09/11/25 08:33 Enoxaparin 30 Mg/0.3 Ml Syringe SUB-Q 30 mg DAILY DAI Administration Furosemide 40 mg 09/10/25 09:00 09/11/25 08:31 Furosemide Inj 40 Mg/4 Ml Vial IV PUSH 40 mg DAILY DAI Administration Guaifenesin/Dextromethorphan 5 ml 09/09/25 20:50 09/09/25 22:16 Guaifenesin/Dextromethorphan 10 Ml Udc PO 5 ml Q4H PRN Administration Cough Metronidazole 500 mg in 100 mls @ 100 mls/hr 09/11/25 12:00 09/12/25 04:05 Flagyl 500 Mg/Iso Soln 100 Ml IVPB 100 mls/hr Q8H DAI Administration Morphine Sulfate 2 mg 09/09/25 13:29 09/10/25 14:10 Morphine Sulfate (*Crx) 4 Mg/Ml Inj IV PUSH 2 mg Q2H PRN Administration Pain Rated 6 or Greater Ondansetron HCl 4 mg 09/09/25 13:29 09/10/25 12:28 Ondansetron Inj 4 Mg/2 Ml Vial IV PUSH 4 mg Q6H PRN Administration Nausea And Vomiting Tramadol HCl 50 mg 09/09/25 13:29 09/10/25 20:49 Tramadol Hcl (*Crx) 50 Mg Tablet PO 50 mg Q6H PRN Administration Pain Rated 4-6 Triamterene/Hydrochlorothiazide 1 tab 09/09/25 13:29 09/11/25 08:32 Triamterene 37.5 Mg/Hctz 25 Mg (Maxzide) Tablet PO 1 tab DAILY DAI Administration Radiology Results: ITS Impressions Chest X-Ray 09/09/25 20:28 IMPRESSION: 1. Cardiomegaly with pulmonary vascular congestion and patchy airspace opacities in the mid and lower lung zones suggesting pulmonary edema mild degree. No pleural effusion. 2. Subcutaneous emphysema lower chest wall on both sides. Chest CTA 09/10/25 06:39 IMPRESSION: 1. No pulmonary embolus. 2. Diffuse lung disease, consistent with pneumonia and/or pulmonary edema. 3. Small pleural effusions. 4. Gas in the chest wall and left neck. Quality VTE Prophylaxis VTE prophylaxis: mechanical ordered (SCDs) and pharmacologic ordered (Lovenox)
[2025-09-12 08:00] VITALS: PULSE 94
[2025-09-12 08:31] LABS: Hematocrit 29.9 % (37.0-47.0); Hemoglobin 9.9 g/dL (12.0-15.0); Mean Corpuscular HGB Conc 33.1 g/dl (32-36); Mean Corpuscular Hemoglobin 30.1 pg (26-34); Mean Corpuscular Volume 90.9 fl (80-100); Platelet Count Result 226 k/mm3 (150-375); Red Blood Count 3.29 M/mm3 (4.2-5.4); White Blood Count 9.8 K/mm3 (4.5-10.0)
[2025-09-12] MEDS: DOCUSATE SODIUM 100 MG CAPSULE PO (08:46)
[2025-09-12] MEDS: ATORVASTATIN 40 MG TABLET PO (08:46)
[2025-09-12] MEDS: TRIAMTERENE 37.5 MG/HCTZ 25 MG (MAXZIDE) TABLET 1 TAB PO (08:46)
[2025-09-12] MEDS: CEPHALEXIN 500 MG CAPSULE PO (08:46)
[2025-09-12] MEDS: FUROSEMIDE 40 MG TABLET PO (08:46)
[2025-09-12] MEDS: CITALOPRAM HYDROBROMIDE 20 MG TABLET PO (08:46)
[2025-09-12] MEDS: ENOXAPARIN 30 MG/0.3 ML SYRINGE SUB-Q (08:47)
[2025-09-12 09:13] LABS: Anion Gap 4 mmol/L (4-12); Blood Urea Nitrogen 18 mg/dL (7-17); Calcium 8.4 mg/dL (8.4-10.2); Carbon Dioxide 31 mmol/L (22-30); Chloride 94 mmol/L (98-107); Estimated Glomerular Filt Rate 36; Glucose 127 mg/dL (65-110); Potassium 3.6 mmol/L (3.4-5.0); Sodium 129 mmol/L (137-145)
--- OUTSIDE RECORDS SUMMARY | 2025-09-15 18:23 | XMS_ITS | Encounter Summary ---
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
--- OUTSIDE RECORDS SUMMARY | 2025-09-15 18:23 | XMS_ITS | Encounter Summary ---
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
--- OUTSIDE RECORDS SUMMARY | 2025-09-15 18:23 | XMS_ITS | Encounter Summary ---
Author Organization [facility] Healthcare Address [address] [place] [address] Care Team Providers Care Burr Grinder Name Role Phone Willy Hollis MD Primary Care Provider [phone] Dhara Velasco MD Primary Care Provide r Willy Hollis MD Primary Care Provider [phone] Reg Hook MD Primary Care Provider [phone] Laurita Grewal NP Primary Care Provider [phone] Tono Sigala MD Primary Care Provider Mendez Clark MD Primary Care Provi margot Reason for Visit * Reason Onset Date Comments Scheduling Appointments 07/11/2020 Called f or DEXA appointment; No answer Encounter Details Date Type Department Care Team (Late st Contact Info) Description 07/11/2020 Telephone [facility] [address] [place] [address] Janice Carroll RT Scheduling Appointments (Called for [...] on file 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 Gender Identity Not on file Sexual Orientation Not on file documented as of this encounter Plan of Treatment Not on file documented as of this encounter Visit Diagnoses Not on filedocumented in this encounter Additional Health Concerns Infection Onset Date Last Indicated Resolved Time COVID: Suspected 09/27/2021 09/27/2021 09/27/2021 10:14 AM MEDICAL INSTRUMENT CABLE FABRICATOR COVID19 09/27/2021 09/27/2021 10/11/2021 3:05 AM MEDICAL INSTRUMENT CABLE FABRICATOR COVID: Recovered Comment:Added based on recent COVID [...] documented as of this encounter Care Teams Burr Grinder Relationship Specialty Start Date End Date Willy Hollis MD PCP - General 01/14/17 01/26/22 Dhara Velasco MD [address] [place] [address] [address] [place] [address] PCP - General 01/27/22 02/07/22 Willy Hollis MD [address] [place] [address] [place] [address] PCP - General 02/08/22 03/07/22 Reg Hook MD [address] [place] [address] PCP - General Family Medicine 03/08/22 08/07/23 Laurita Grewal NP [address] [place] [address] PCP - General Family Medicine 08/08/23 10/31/23 Tono Sigala MD [address] [place] [address] PCP - General Family Medicine 11/01/23 09/24/24 Mendez Clark MD [address] [facility] [address] [place] [address] PCP - General Family Practice 09/25/24 documented as of this encounter
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
--- OUTSIDE RECORDS SUMMARY | 2025-09-15 18:23 | XMS_ITS | Clinical Summary ---
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
== END 2025-09-12 10:09 | disposition home or self-care (01) | DRG 981 ==
LOC: ANHSURGERY 08:50 → ANH2MED 09-11 06:48
PROVIDERS: Internal Medicine; Nurse Practitioner; Admitting Provider Urology; PCP Family Medicine; Visit Provider Obstetrics & Gynecology
PROC: 0TSD4ZZ Reposition Urethra, Percutaneous Endoscopic Approach (ICD-10-PCS; CPT 57425; principal; 2025-09-09 07:30)
PROC: 0UT94ZZ Resection of Uterus, Percutaneous Endoscopic Approach (ICD-10-PCS; CPT 57425; 2025-09-09 07:30)
DX: J95.821 Acute postprocedural respiratory failure (principal); J81.0 Acute pulmonary edema; D62 Acute posthemorrhagic anemia; E22.2 Syndrome of inappropriate secretion of antidiuretic hormone; E87.21 Acute metabolic acidosis; I48.92 Unspecified atrial flutter; N81.4 Uterovaginal prolapse, unspecified; N39.3 Stress incontinence (female) (male); E78.5 Hyperlipidemia, unspecified; I12.9 Hypertensive chronic kidney disease with stage 1 through stage 4 chronic kidney disease, or unspecified chronic kidney disease; N18.31 Chronic kidney disease, stage 3a; M81.0 Age-related osteoporosis without current pathological fracture
CPT/HCPCS: 36415; 71045; 71275; 80048; 80053; 83605; 83735; 84484; 85025; 85027; 85380; 88307; 93005; 94640; 99199; J0690; A9270; C1771; C1781; J0330; J1100; J1171; J1650; J1836; J1885; J1938; J2003; J2270; J2371; J2405; J2704; J3010; J3480; J7030; J7120; Q9967